=== PATIENT | male | born 1960 | race Caucasian/White ===

== ENCOUNTER 2018-09-14 13:16 | Emergency (ER) | payer OTHER ==
[2018-09-14 13:40] VITALS: RESP 18
--- NOTE | 2018-09-14 14:51 | ED ---
Abdominal Pain HPI - General Chief Complaint: Abdominal Pain Stated Complaint: Rib injury/constipation Time Seen by Provider: 09/14/18 14:24 Source: patient, RN notes reviewed, old records reviewed Mode of arrival: ambulatory Limitations: no limitations - History of Present Illness Initial Comments: This is a 4-year-old male the ER status post fall. Fall with abdominal pain and rib pain. Patient thinks he may have broken a rib, fall was 2 days ago. Patient with persistent abdominal pain currently. Patient has no significant medical history taking Motrin for pain currently. No significant shortness of breath may be just when he coughs or rotates his lower back. Pain is over right scapular area. Patient denies abdominal pain no blood in his urine no blood in the stool MD Complaint: flank pain (Right, Scapular) -: days(s) (2) Radiation: none Migration to: no migration Severity: moderate Severity scale (1-10): 5 Quality: stabbing, aching Consistency: constant Improves With: nothing Worsens With: movement Context: recent injury, other (fall) Associated Symptoms: denies other symptoms Treatments Prior to Arrival: NSAIDs - Related Data Home Medications Medication Instructions Recorded Confirmed Ibuprofen [Motrin Ib] 400 mg PO Q4H PRN 09/14/18 09/14/18 Allergies Allergy/AdvReac Type Severity Reaction Status Date / Time No Known Allergies Allergy Verified 09/14/18 14:37 Review of Systems ROS Statement: Those systems with pertinent positive or pertinent negative responses have been documented in the HPI. ROS Other: All systems not noted in ROS Statement are negative. Past Medical History Past Medical History: No Reported History History of Any Multi-Drug Resistant Organisms: None Reported Past Surgical History: Orthopedic Surgery Additional Past Surgical History / Comment(s): right knee surgery Past Psychological History: No Psychological Hx Reported Smoking Status: Current every day smoker Past Alcohol Use History: Occasional Past Drug Use History: None Reported General Exam Limitations: no limitations General appearance: alert, in no apparent distress Head exam: Present: atraumatic, normocephalic, normal inspection Eye exam: Present: normal appearance, PERRL, EOMI. Absent: scleral icterus, conjunctival injection, periorbital swelling ENT exam: Present: normal exam, mucous membranes moist Neck exam: Present: normal inspection. Absent: tenderness, meningismus, lymphadenopathy Respiratory exam: Present: normal lung sounds bilaterally. Absent: respiratory distress, wheezes, rales, rhonchi, stridor Cardiovascular Exam: Present: regular rate, normal rhythm, normal heart sounds. Absent: systolic murmur, diastolic murmur, rubs, gallop, clicks GI/Abdominal exam: Present: soft, normal bowel sounds. Absent: distended, tenderness, guarding, rebound, rigid Extremities exam: Present: normal inspection, full ROM, normal capillary refill. Absent: tenderness, pedal edema, joint swelling, calf tenderness Back exam: Present: normal inspection Neurological exam: Present: alert, oriented X3, CN II-XII intact Psychiatric exam: Present: normal affect, normal mood Skin exam: Present: warm, dry, intact, normal color. Absent: rash Course Vital Signs 09/14/18 13:37 Temperature 98.4 F Pulse Rate 87 Respiratory 18 Rate Blood Pressure 189/86 O2 Sat by Pulse 97 Oximetry - Reevaluation(s) Reevaluation #1: 09/14/18 15:34 Medical records thoroughly reviewed Reevaluation #2: 09/14/18 15:34 Patient has adequate pain control with no significant shortness of breath Medical Decision Making - Medical Decision Making 58 male the ER for evaluation of right-sided rib pain, right scapular pain secondary to fall. X-rays positive for right rib fracture. Patient will continue Motrin home for pain - Radiology Data Radiology results: report reviewed (X-ray abdominal series chest and rib series is positive for right ninth rib fracture), image reviewed Disposition Clinical Impression: Fall, Contusion of rib on right side, Right rib fracture Disposition: HOME SELF-CARE Condition: Good Instructions: Rib Fracture (ED) Is patient prescribed a controlled substance at d/c from ED?: No Referrals: Saurav Santillan DO [Primary Care Provider] - 1-2 days
--- NOTE | 2018-09-14 15:40 | XR ---
EXAMINATION TYPE: XR ribs RT DATE OF EXAM: 09/14/2018 COMPARISON: NONE HISTORY: Pain TECHNIQUE: 2 views submitted FINDINGS: There is a mildly displaced fracture involving the posterior anterolateral right ninth rib. Subsegmental consolidation at the right lung base. IMPRESSION: Acute fracture posterior lateral right ninth rib.
--- NOTE | 2018-09-14 15:42 | XR ---
EXAMINATION TYPE: XR abdomen acute w cxr DATE OF EXAM: 09/14/2018 COMPARISON: NONE HISTORY: Pain TECHNIQUE: Supine, upright, and left side down lateral decubitus views of the abdomen are obtained. FINDINGS: There is a fracture involving the posterior lateral right ninth rib. There is an irregular 1 cm nodule involving the lateral margin of the right lung base. No pneumothorax. Left lung is clear. There is prominence of the aortic arch suggestive of aneurysm. Arthropathy of the shoulders. Hypertrophic change of the spine. Bowel gas pattern nonspecific. Retained fecal debris throughout the colon. IMPRESSION: 1.Nondisplaced fracture posterior lateral right ninth rib. 2. Irregular 1 cm lower lobe pulmonary nodule recommend CT of the chest. 3. Probable ascending aortic aneurysm which could also be correlated with CT scan. 4. Nonspecific abdomen. 5. Subsegmental basilar atelectasis or infiltrate on the right.
[2018-09-14 15:58] VITALS: BP 156/99; PULSE 69; TEMP 98.1
== END 2018-09-14 15:58 | disposition home or self-care (01) ==
LOC: EC 13:16
DX: S22.31XA Fracture of one rib, right side, initial encounter for closed fracture (principal); R10.9 Unspecified abdominal pain; F17.200 Nicotine dependence, unspecified, uncomplicated; V86.59XA Driver of other special all-terrain or other off-road motor vehicle injured in nontraffic accident, initial encounter; Y93.I9 Activity, other involving external motion; Y92.410 Unspecified street and highway as the place of occurrence of the external cause
CPT/HCPCS: 74022; 99284

== ENCOUNTER 2020-04-17 16:25 | Emergency (ER) | payer OTHER ==
[2020-04-17] MEDS ORDERED: LABETALOL 5 MG/ML VIAL MDV IVP STA (16:47)
[2020-04-17 16:54] LABS: Basophils # (A) 0.1 k/uL (0-0.2); Basophils % (A) 1 %; Eosinophils # (A) 0.3 k/uL (0-0.7); Eosinophils % (A) 3 %; HCT 41.8 % (39.0-53.0); HGB 14.1 gm/dL (13.0-17.5); Lymphocytes # (A) 2.1 k/uL (1.0-4.8); Lymphocytes % (A) 24 %; MCH 34.6 pg (25.0-35.0); MCHC 33.7 g/dL (31.0-37.0); MCV 102.8 fL (80.0-100.0); Macrocytosis Slight; Mean Platelet Volume 7.1; Monocytes # (A) 0.4 k/uL (0-1.0); Monocytes % (A) 5 %; Neutrophils # (A) 5.7 k/uL (1.3-7.7); Neutrophils % (A) 66 %; Platelet Count 259 k/uL (150-450); RBC 4.07 m/uL (4.30-5.90); RDW 13.4 % (11.5-15.5); WBC 8.6 k/uL (3.8-10.6)
[2020-04-17 17:05] LABS: ALT 15 U/L (4-49); AST 27 U/L (17-59); African American GFR (CKD) >90 (>60 ml/min/1.73 sqM); Albumin 4.5 g/dL (3.5-5.0); Alkaline Phosphatase 69 U/L (38-126); Anion Gap 7 mmol/L; Blood Urea Nitrogen 17 mg/dL (9-20); Calcium 9.9 mg/dL (8.4-10.2); Carbon Dioxide 27 mmol/L (22-30); Chloride 104 mmol/L (98-107); Glucose 104 mg/dL (74-99); Non-African American GFR(CKD) >90 (>60 ml/min/1.73 sqM); Potassium 4.2 mmol/L (3.5-5.1); Sodium 138 mmol/L (137-145); Total Bilirubin 0.2 mg/dL (0.2-1.3); Total Protein 7.3 g/dL (6.3-8.2)
--- NOTE | 2020-04-17 17:06 | ED ---
General Adult HPI - General Chief complaint: Neuro Symptoms/Deficit Stated complaint: R sd Numbness Source: patient Mode of arrival: ambulatory Limitations: no limitations - History of Present Illness Initial comments: The patient is a 59-year-old male with no past medical history presents emergency department with reported paresthesias to his right face and right hand. He denies any weakness. Symptoms began at 2 PM this afternoon and only lasted for 10-15 seconds. Paresthesias involves the whole right side of his face as well as all of his fingers. No history of similar in the past. Denies any facial droop, difficulties with speech. No numbness or tingling in his leg. Symptoms continuously resolved. He did make mention to his possible go into the emergency room for evaluation. Patient denies any headaches. No previous history of strokes. No recent blunt head trauma. Eyes any fevers or chills. No headache or shortness of breath. Denies any neck pain. There are no other alleviating, precipitating or modifying factors - Related Data Previous Rx's Medication Instructions Recorded amLODIPine [Norvasc] 5 mg PO DAILY #15 tab 04/17/20 Allergies Allergy/AdvReac Type Severity Reaction Status Date / Time No Known Allergies Allergy Verified 04/17/20 18:17 Review of Systems ROS Statement: Those systems with pertinent positive or pertinent negative responses have been documented in the HPI. ROS Other: All systems not noted in ROS Statement are negative. Past Medical History Past Medical History: No Reported History History of Any Multi-Drug Resistant Organisms: None Reported Past Surgical History: Orthopedic Surgery Additional Past Surgical History / Comment(s): right knee surgery, left eye cataract Past Psychological History: No Psychological Hx Reported Smoking Status: Current every day smoker Past Alcohol Use History: Occasional Past Drug Use History: None Reported General Exam Limitations: no limitations Course Vital Signs 04/17/20 04/17/20 04/17/20 16:31 17:01 17:30 Temperature 98.8 F Pulse Rate 83 77 Respiratory 18 18 Rate Blood Pressure 204/124 173/96 184/102 O2 Sat by Pulse 99 98 Oximetry 04/17/20 04/17/20 18:28 19:10 Temperature 98.9 F Pulse Rate 75 78 Respiratory 16 17 Rate Blood Pressure 177/100 181/77 O2 Sat by Pulse 96 98 Oximetry EKG Findings - EKG Comments: EKG Findings:: EKG demonstrates normal sinus rhythm with ventricular rate of 83. VA interval 172. QRS 76. QTC 415. No acute ST segment elevations or depressions concerning for ischemic changes Medical Decision Making - Medical Decision Making Upon arrival the patient is placed into room 1. A thorough history and physical exam was performed. NIH stroke scale is negative on the patient. Peripheral IV was established. Laboratory studies were conducted. CBC, CMP, coagulation studies and troponin are negative. Patient was sent over for a CT of his brain and a chest x-ray which are negative for any acute findings. There is mild diffuse age-related cerebral atrophy. I discussed results with the patient. He has had no reoccurrence of his symptoms. I discussed diagnosis, differential and treatment options. At this time patient will be discharged home. He should follow-up with his primary care doctor within 2-4 days for further evaluation. Return to the emergency department for any new or worsening symptoms. Patient was hypertensive in the emergency department upon arrival with a blood pressure of 204/124. He was given 10 mg of labetalol with improvement in blood pressures to 177/100. I discussed with patient that he should take his blood pressure measurements twice daily. I will start him on a dose of Norvasc. He is to follow-up with his primary care physician for further blood pressure monitoring and adjustment to this medication. The patient understood this. The patient was then discharged home in stable condition - Lab Data Result diagrams: 04/17/20 16:45 04/17/20 16:45 Lab Results 04/17/20 04/17/20 04/17/20 Range/Units 16:45 16:45 16:45 WBC 8.6 (3.8-10.6) k/uL RBC 4.07 L (4.30-5.90) m/uL Hgb 14.1 (13.0-17.5) gm/dL Hct 41.8 (39.0-53.0) % MCV 102.8 H (80.0-100.0) fL MCH 34.6 (25.0-35.0) pg MCHC 33.7 (31.0-37.0) g/dL RDW 13.4 (11.5-15.5) % Plt Count 259 (150-450) k/uL Neutrophils % 66 % Lymphocytes % 24 % Monocytes % 5 % Eosinophils % 3 % Basophils % 1 % Neutrophils # 5.7 (1.3-7.7) k/uL Lymphocytes # 2.1 (1.0-4.8) k/uL Monocytes # 0.4 (0-1.0) k/uL Eosinophils # 0.3 (0-0.7) k/uL Basophils # 0.1 (0-0.2) k/uL Macrocytosis Slight PT 10.1 (9.0-12.0) sec INR 1.0 (<1.2) APTT 26.1 (22.0-30.0) sec Sodium 138 (137-145) mmol/L Potassium 4.2 (3.5-5.1) mmol/L Chloride 104 (98-107) mmol/L Carbon Dioxide 27 (22-30) mmol/L Anion Gap 7 mmol/L BUN 17 (9-20) mg/dL Creatinine 0.70 (0.66-1.25) mg/dL Est GFR (CKD-EPI)AfAm >90 (>60 ml/min/1.73 sqM) Est GFR (CKD-EPI)NonAf >90 (>60 ml/min/1.73 sqM) Glucose 104 H (74-99) mg/dL Calcium 9.9 (8.4-10.2) mg/dL Total Bilirubin 0.2 (0.2-1.3) mg/dL AST 27 (17-59) U/L ALT 15 (4-49) U/L Alkaline Phosphatase 69 (38-126) U/L Troponin I (0.000-0.034) ng/mL Total Protein 7.3 (6.3-8.2) g/dL Albumin 4.5 (3.5-5.0) g/dL 04/17/20 Range/Units 16:45 WBC (3.8-10.6) k/uL RBC (4.30-5.90) m/uL Hgb (13.0-17.5) gm/dL Hct (39.0-53.0) % MCV (80.0-100.0) fL MCH (25.0-35.0) pg MCHC (31.0-37.0) g/dL RDW (11.5-15.5) % Plt Count (150-450) k/uL Neutrophils % % Lymphocytes % % Monocytes % % Eosinophils % % Basophils % % Neutrophils # (1.3-7.7) k/uL Lymphocytes # (1.0-4.8) k/uL Monocytes # (0-1.0) k/uL Eosinophils # (0-0.7) k/uL Basophils # (0-0.2) k/uL Macrocytosis PT (9.0-12.0) sec INR (<1.2) APTT (22.0-30.0) sec Sodium (137-145) mmol/L Potassium (3.5-5.1) mmol/L Chloride (98-107) mmol/L Carbon Dioxide (22-30) mmol/L Anion Gap mmol/L BUN (9-20) mg/dL Creatinine (0.66-1.25) mg/dL Est GFR (CKD-EPI)AfAm (>60 ml/min/1.73 sqM) Est GFR (CKD-EPI)NonAf (>60 ml/min/1.73 sqM) Glucose (74-99) mg/dL Calcium (8.4-10.2) mg/dL Total Bilirubin (0.2-1.3) mg/dL AST (17-59) U/L ALT (4-49) U/L Alkaline Phosphatase (38-126) U/L Troponin I <0.012 (0.000-0.034) ng/mL Total Protein (6.3-8.2) g/dL Albumin (3.5-5.0) g/dL Disposition Clinical Impression: Paresthesia of right arm Disposition: HOME SELF-CARE Condition: Stable Instructions (If sedation given, give patient instructions): Paresthesia (ED) Additional Instructions: Please follow-up with your primary care doctor in 2-4 days. Return to the emergency room for any new or worsening symptoms. Take your blood pressure daily Prescriptions: amLODIPine [Norvasc] 5 mg PO DAILY #15 tab Is patient prescribed a controlled substance at d/c from ED?: No Referrals: Saurav Santillan DO [Primary Care Provider] - 1-2 days Time of Disposition: 18:47
[2020-04-17 17:10] LABS: Partial Thromboplastin Time 26.1 sec (22.0-30.0); Prothrombin Time 10.1 sec (9.0-12.0)
--- NOTE | 2020-04-17 17:34 | XR ---
EXAMINATION TYPE: XR chest 2V DATE OF EXAM: 04/17/2020 COMPARISON: Chest x-ray September 14, 2018 HISTORY: Altered mental status and weakness. Right-sided numbness today. TECHNIQUE: Frontal and lateral views of the chest are obtained. FINDINGS: There is no new suspicious focal air space opacity, pleural effusion, or pneumothorax seen . The cardiac silhouette size remains stable and upper limits of normal. The osseous structures ar e intact. IMPRESSION: No acute cardiopulmonary process.
--- NOTE | 2020-04-17 17:36 | CT ---
EXAMINATION TYPE: CT brain wo con DATE OF EXAM: 04/17/2020 HISTORY: Right sided numbness today. CT DLP: 1135.4 mGycm. Automated Exposure Control for Dose Reduction was Utilized. TECHNIQUE: CT scan of the head is performed without contrast. COMPARISON: None. FINDINGS: There is no acute intracranial hemorrhage or midline shift identified. There is diffuse v entricular and sulcal prominence consistent with diffuse age-related cerebral atrophy. Carter-white mat ter differentiation fairly well maintained. Scleral calcification left globe. Paranasal sinuses alexis ssly clear. No suspicious opacification mastoid air cells. IMPRESSION: No acute intracranial hemorrhage or midline shift. There is mild diffuse age-related ce rebral atrophy noted.
[2020-04-17 19:17] VITALS: BP 181/77; PULSE 78; RESP 17; TEMP 98.9
== END 2020-04-17 19:10 | disposition home or self-care (01) ==
LOC: EC 16:25
DX: R20.2 Paresthesia of skin (principal); R20.0 Anesthesia of skin; G31.1 Senile degeneration of brain, not elsewhere classified; F17.200 Nicotine dependence, unspecified, uncomplicated
CPT/HCPCS: 36415; 70450; 71046; 80053; 84484; 85025; 85610; 85730; 93005; 96374; 99284

== ENCOUNTER → 2020-04-26 | Outpatient (CLI) | payer OTHER ==
--- NOTE | 2020-04-26 07:44 | US ---
EXAMINATION TYPE: US carotid duplex BILAT DATE OF EXAM: 04/26/2020 COMPARISON: NONE CLINICAL HISTORY: G45.9 TIA. Right sided numbness EXAM MEASUREMENTS: RIGHT: Peak Systolic Velocity (PSV) cm/sec ----- Right CCA: 78.2 ----- Right ICA: 133.4 ----- Right ECA: 97.4 ICA/CCA ratio: 1.7 RIGHT: End Diastole cm/sec ----- Right CCA: 25.8 ----- Right ICA: 51.0 ----- Right ECA: 27.6 LEFT: Peak Systolic Velocity (PSV) cm/sec ----- Left CCA: 80.8 ----- Left ICA: 113.5 ----- Left ECA: 87.5 ICA/CCA ratio: 1.4 LEFT: End Diastole cm/sec ----- Left CCA: 25.8 ----- Left ICA: 42.7 ----- Left ECA: 22.6 VERTEBRALS (direction of flow): Right Vertebral: Antegrade Left Vertebral: Antegrade Rhythm: Normal Bilateral intimal thickening, elevated velocity: right distal ICA, no significant stenosis as the int ernal carotid artery to common carotid artery ratio is within normal limits. IMPRESSION: Mild degree of grayscale atheromatous plaquing with no sonographically evident hemodynam ically significant stenosis within either visualized carotid arterial system. Criteria for Assigning % of Stenosis / Diameter reduction (Estimation based on the indirect measurements of the internal carotid artery velocities (ICA PSV). 1. Normal (no stenosis)=ICA PSV < 125 cm/s: ratio < 2.0: ICA EDV<40 cm/s. 2. Less than 50% stenosis=ICA PSV < 125 cm/s: ratio < 2.0: ICA EDV<40 cm/s. 3. 50 to 69% stenosis=ICA PSV of 125 to 230 cm/s: ration 2.0 ? 4.0: ICA EDV 40-100 cm/s. 4. Greater than 70% stenosis to near occlusion= ICA PSV > 230 cm/s: ratio > 4.0: ICA EDV > 100 cm/s. 5. Near occlusion= ICA PSV velocities may be low or undetectable: variable ratio and ICA EDV. 6. Total occlusion=unable to detect flow.
== END | disposition home or self-care (01) ==
LOC: RADUSWWP 06:42
PROVIDERS: ATTEND Family Medicine
DX: I70.90 Unspecified atherosclerosis (principal); G45.9 Transient cerebral ischemic attack, unspecified
CPT/HCPCS: 93880

== ENCOUNTER → 2022-01-31 | Outpatient (CLI) | payer SELFPAY ==
--- NOTE | 2022-01-31 10:15 | XR ---
EXAMINATION TYPE: XR chest 2V DATE OF EXAM: 01/31/2022 COMPARISON: 04/17/2020 HISTORY: Shortness of breath TECHNIQUE: Frontal and lateral views of the chest are obtained. FINDINGS: Scattered senescent parenchymal changes noted. Hyperinflation compatible with COPD. There is large area of opacity right upper lobe with associated volume loss. Right hilar mass is not excluded. Small pleural effusion noted. Several reticulonodular densities left mid and left upper juliocesar g zones. Heart size is stable. Mediastinal structures are stable and grossly unremarkable. No evidence for hilar prominence. Degenerative changes dorsal spine. IMPRESSION: 1. There is large area of opacity right upper lobe with associated volume loss. Right hilar mass is n ot excluded. Small pleural effusion noted. Recommend CT to exclude underlying neoplasm.
== END | disposition home or self-care (01) ==
LOC: RADXRMAIN 10:00
PROVIDERS: ATTEND Nurse Practitioner Family
DX: J90 Pleural effusion, not elsewhere classified (principal); R91.8 Other nonspecific abnormal finding of lung field
CPT/HCPCS: 71046

== ENCOUNTER 2022-02-14 10:57 | Inpatient (IN) | payer OTHER ==
[2022-02-14] MEDS ORDERED: KETOROLAC 15 MG/ML 1 ML VIAL IVP STA (11:28)
[2022-02-14] MEDS ORDERED: LORazepam 2 MG/ML INJ IV STA (11:28)
[2022-02-14] MEDS ORDERED: SODIUM CHLORIDE 0.9% 500 ML 500 ML IV STA (11:28)
--- NOTE | 2022-02-14 11:50 | ED ---
General Adult HPI - General Chief complaint: Shortness of Breath Stated complaint: YADIRA Time Seen by Provider: 02/14/22 11:00 Source: patient, RN notes reviewed, old records reviewed Mode of arrival: ambulatory Limitations: no limitations - History of Present Illness Initial comments: This is a 61-year-old male who presents emergency department from Dr. Yeboah's office. Patient was recently diagnosed with a lung mass on the right side with possible pleural effusion from a CAT scan. Dr. Yeboah on the patient needed to be brought into the hospital possibly have this pleural effusion drained and have oncology see him and order some biopsies extremity if this is indeed cancer and what type of cancer. Patient complains of some right-sided chest pain and also some shortness of breath per patient also states she's very anxious He just found out this news this morning. Patient denies any fever chills or cough per patient denies any abdominal pain patient denies nausea vomiting diarrhea. - Related Data Previous Rx's Medication Instructions Recorded amLODIPine [Norvasc] 5 mg PO DAILY #15 tab 04/17/20 Allergies Allergy/AdvReac Type Severity Reaction Status Date / Time No Known Allergies Allergy Verified 04/17/20 18:17 Review of Systems ROS Statement: Those systems with pertinent positive or pertinent negative responses have been documented in the HPI. ROS Other: All systems not noted in ROS Statement are negative. Past Medical History Past Medical History: No Reported History History of Any Multi-Drug Resistant Organisms: None Reported Past Surgical History: Orthopedic Surgery Additional Past Surgical History / Comment(s): right knee surgery, left eye cataract Past Psychological History: No Psychological Hx Reported Smoking Status: Former smoker Past Alcohol Use History: Occasional Past Drug Use History: None Reported General Exam - General Exam Comments Initial Comments: GENERAL: Patient is well-developed and well-nourished. Patient is nontoxic and well- hydrated and is in mild distress. ENT: Neck is soft and supple. No significant lymphadenopathy is noted. Oropharynx is clear. Moist mucous membranes. Neck has full range of motion without eliciting any pain. EYES: The sclera were anicteric and conjunctiva were pink and moist. Extraocular movements were intact and pupils were equal round and reactive to light. Eyelids were unremarkable. PULMONARY: Patient is significantly reduced breath sounds on the right. CARDIOVASCULAR: There is a regular rate and rhythm without any murmurs gallops or rubs. ABDOMEN: Soft and nontender with normal bowel sounds. SKIN: Skin is clear with no lesions or rashes and otherwise unremarkable. NEUROLOGIC: Patient is alert and oriented x3. Cranial nerves II through XII are grossly intact. Motor and sensory are also intact. Normal speech, volume and content. Symmetrical smile. MUSCULOSKELETAL: Normal extremities with adequate strength and full range of motion. No lower extremity swelling or edema. No calf tenderness. LYMPHATICS: No significant lymphadenopathy is noted PSYCHIATRIC: Patient is mildly anxious Limitations: no limitations Course Vital Signs 02/14/22 02/14/22 11:04 12:07 Temperature 98.4 F Pulse Rate 108 H Respiratory 24 Rate Blood Pressure 143/92 O2 Sat by Pulse 93 L 90 L Oximetry Medical Decision Making - Medical Decision Making EKG shows sinus tachycardia at 108 bpm AL interval 170 QRS is 76 QT interval 312 QTC is 375. Patient's EKG shows no ST segment elevation or depression. Chest x-ray shows a mass in the right hilar and right upper lobe patient also has an increasing pleural effusion. And there is some patchy infiltrate in the left mid lung. After seeing the x-ray I ordered the patient 2 g of Rocephin at 2 PM. I also ordered a COVID test. Dr. Odonnell was consulted he saw the patient in the emergency department and wants to do a bronchoscopy later today. I spoke with [facility] agreed to admit the patient I admitted the patient I wrote admitting orders. I consulted Dr. Odonnell I also consulted oncology. - Lab Data Result diagrams: 02/14/22 11:44 02/14/22 11:44 Lab Results 02/14/22 02/14/22 02/14/22 Range/Units 11:44 11:44 11:44 WBC 17.9 H (3.8-10.6) k/uL RBC 4.56 (4.30-5.90) m/uL Hgb 14.1 (13.0-17.5) gm/dL Hct 43.0 (39.0-53.0) % MCV 94.2 (80.0-100.0) fL MCH 30.9 (25.0-35.0) pg MCHC 32.8 (31.0-37.0) g/dL RDW 15.2 (11.5-15.5) % Plt Count 478 H (150-450) k/uL MPV 7.3 Neutrophils % 85 % Lymphocytes % 7 % Monocytes % 7 % Eosinophils % 0 % Basophils % 0 % Neutrophils # 15.1 H (1.3-7.7) k/uL Lymphocytes # 1.3 (1.0-4.8) k/uL Monocytes # 1.3 H (0-1.0) k/uL Eosinophils # 0.0 (0-0.7) k/uL Basophils # 0.1 (0-0.2) k/uL Manual Slide Review Performed RBC Morphology Normal PT 11.7 (9.0-12.0) sec INR 1.1 (<1.2) APTT 27.4 (22.0-30.0) sec Sodium 132 L (137-145) mmol/L Potassium 3.8 (3.5-5.1) mmol/L Chloride 93 L (98-107) mmol/L Carbon Dioxide 29 (22-30) mmol/L Anion Gap 10 mmol/L BUN 24 H (9-20) mg/dL Creatinine 0.62 L (0.66-1.25) mg/dL Est GFR (CKD-EPI)AfAm >90 (>60 ml/min/1.73 sqM) Est GFR (CKD-EPI)NonAf >90 (>60 ml/min/1.73 sqM) Glucose 112 H (74-99) mg/dL Calcium 9.3 (8.4-10.2) mg/dL Magnesium 2.1 (1.6-2.3) mg/dL Total Bilirubin 0.8 (0.2-1.3) mg/dL AST 37 (17-59) U/L ALT 20 (4-49) U/L Alkaline Phosphatase 142 H (38-126) U/L Troponin I (0.000-0.034) ng/mL NT-Pro-B Natriuret Pep pg/mL Total Protein 7.0 (6.3-8.2) g/dL Albumin 3.6 (3.5-5.0) g/dL 02/14/22 02/14/22 Range/Units 11:44 11:44 WBC (3.8-10.6) k/uL RBC (4.30-5.90) m/uL Hgb (13.0-17.5) gm/dL Hct (39.0-53.0) % MCV (80.0-100.0) fL MCH (25.0-35.0) pg MCHC (31.0-37.0) g/dL RDW (11.5-15.5) % Plt Count (150-450) k/uL MPV Neutrophils % % Lymphocytes % % Monocytes % % Eosinophils % % Basophils % % Neutrophils # (1.3-7.7) k/uL Lymphocytes # (1.0-4.8) k/uL Monocytes # (0-1.0) k/uL Eosinophils # (0-0.7) k/uL Basophils # (0-0.2) k/uL Manual Slide Review RBC Morphology PT (9.0-12.0) sec INR (<1.2) APTT (22.0-30.0) sec Sodium (137-145) mmol/L Potassium (3.5-5.1) mmol/L Chloride (98-107) mmol/L Carbon Dioxide (22-30) mmol/L Anion Gap mmol/L BUN (9-20) mg/dL Creatinine (0.66-1.25) mg/dL Est GFR (CKD-EPI)AfAm (>60 ml/min/1.73 sqM) Est GFR (CKD-EPI)NonAf (>60 ml/min/1.73 sqM) Glucose (74-99) mg/dL Calcium (8.4-10.2) mg/dL Magnesium (1.6-2.3) mg/dL Total Bilirubin (0.2-1.3) mg/dL AST (17-59) U/L ALT (4-49) U/L Alkaline Phosphatase (38-126) U/L Troponin I 0.074 H* (0.000-0.034) ng/mL NT-Pro-B Natriuret Pep 802 pg/mL Total Protein (6.3-8.2) g/dL Albumin (3.5-5.0) g/dL Disposition Clinical Impression: Lung mass, Pneumonia, Dyspnea Disposition: ADMITTED IP TO THIS [facility] Is patient prescribed a controlled substance at d/c from ED?: No Referrals: Saurav Santillan DO [Primary Care Provider] - 1-2 days Time of Disposition: 14:02
[2022-02-14 12:36] LABS: Basophils # (A) 0.1 k/uL (0-0.2); Basophils % (A) 0 %; Eosinophils % (A) 0 %; HGB 14.1 gm/dL (13.0-17.5); Lymphocytes # (A) 1.3 k/uL (1.0-4.8); Lymphocytes % (A) 7 %; MCH 30.9 pg (25.0-35.0); MCHC 32.8 g/dL (31.0-37.0); MCV 94.2 fL (80.0-100.0); Mean Platelet Volume 7.3; Monocytes # (A) 1.3 k/uL (0-1.0); Monocytes % (A) 7 %; Neutrophils # (A) 15.1 k/uL (1.3-7.7); Neutrophils % (A) 85 %; Platelet Count 478 k/uL (150-450); RBC 4.56 m/uL (4.30-5.90); RDW 15.2 % (11.5-15.5); WBC 17.9 k/uL (3.8-10.6)
[2022-02-14 12:41] LABS: ALT 20 U/L (4-49); AST 37 U/L (17-59); African American GFR (CKD) >90 (>60 ml/min/1.73 sqM); Albumin 3.6 g/dL (3.5-5.0); Alkaline Phosphatase 142 U/L (38-126); Anion Gap 10 mmol/L; Blood Urea Nitrogen 24 mg/dL (9-20); Calcium 9.3 mg/dL (8.4-10.2); Carbon Dioxide 29 mmol/L (22-30); Chloride 93 mmol/L (98-107); Glucose 112 mg/dL (74-99); Magnesium 2.1 mg/dL (1.6-2.3); Non-African American GFR(CKD) >90 (>60 ml/min/1.73 sqM); Potassium 3.8 mmol/L (3.5-5.1); Sodium 132 mmol/L (137-145); Total Bilirubin 0.8 mg/dL (0.2-1.3)
--- NOTE | 2022-02-14 12:41 | XR ---
EXAMINATION TYPE: XR chest 2V DATE OF EXAM: 02/14/2022 COMPARISON: 01/31/2022 HISTORY: 61-year-old male with chest pain and shortness of breath TECHNIQUE: AP and lateral views FINDINGS: Right heart margin obscured by adjacent pleural parenchymal opacity. There is increased, now moderate pleural effusion on the right. Patchy densities left mid and upper lung. Redemonstrated is extensive opacity right hilum and right upper lobe. Trace effusion on the left as well. IMPRESSION: 1. Worsening now moderate right pleural effusion with adjacent atelectasis and/or consolidation. 2. Probable extensive right hilar and right upper lobe mass as seen on the patient's outside [address] 3. Increasing patchy infiltrate left midlung. Pneumonia not excluded.
[2022-02-14 13:01] LABS: INR 1.1 (<1.2)
[2022-02-14 13:02] LABS: Partial Thromboplastin Time 27.4 sec (22.0-30.0); Prothrombin Time 11.7 sec (9.0-12.0)
[2022-02-14 13:38] LABS: RBC Morphology Normal
[2022-02-14] MEDS ORDERED: cefTRIAXone IN SWFI 1,000 MG/10 ML SYRINGE IVP STA (13:59)
[2022-02-14] MEDS ORDERED: SODIUM CHLORIDE 0.9% 1,000 ML IV ONE (14:06)
--- NOTE | 2022-02-14 15:04 | P.CNPUL ---
History of Present Illness Consult date: 02/14/22 Reason for consult: lung mass History of present illness: 61-year-old male patient was sent over from our office for a large right lung mass. The patient isn't doing poorly. He has been getting progressively more short of breath, he has lost around 30 pounds, the patient is also had diminished appetite, and nonspecific aches and pains throughout his chest for the past 4 months. Chest x-ray was done on outpatient basis and the patient was found to have a large right upper lobe mass. Following that, the patient was sent to [facility] for a CAT scan of the chest that was done on 02/08/2022. The patient was found to have a heterogeneous enhancing mass and associated with lobar collapse involving the entirety of the right upper lobe measuring 7.8 x 6.7 cm in size and some postobstructive changes in the right upper lobe. There was also the bronchial involvement in the right mainstem bronchus. There were parenchymal opacities within the superior segment of the right lower lobe posteriorly measuring 4.8 x 2.2 cm in size, left lower lobe measuring 1.9 x 1.7 cm in size and 1.9 x 1.2 cm in size And a small right-sided pleural effusion as well as a small left-sided pleural effusion there was also evidence of a large bilateral supraclavicular lymph node measuring up to 1.1 cm in size. There was a large subcarinal lymph node measuring 1.5 cm in size. There was a right perihilar soft tissue attenuation difficult differentiate between adenopathy and a mass. Mildly large and father also seen in the para- aortic, AP window and left hilar areas. The patient does not use any pulmonary medications or inhalers did not have any hemoptysis. He is a chronic smoker quit smoking approximately 4 months ago. His been fully vaccinated for COVID 19. 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 This patient is quite cachectic. He is having some limited shortness of breath even at rest. A repeat chest x-ray was done today and shows a right upper lobe opacity and a enlarging right-sided pleural effusion. The patient is currently on room air oxygen. No changes voice. No hemoptysis. No altered mentation. No focal neurological deficit. He had a small piece of toast and drink at around 6:00 this morning. Discussed the case with anesthesia. Should be able to bronchoscope this patient for tissue diagnosis by afternoon. Review of Systems Constitutional: Reports fatigue, Reports weakness, Reports weight loss Eyes: denies as per HPI, denies blurred vision, denies bulging eye, denies decreased vision, denies diplopia, denies discharge, denies dry eye, denies irritation, denies itching, denies pain, denies photophobia, denies loss of peripheral vision, denies loss of vision, denies tunnel vision/blind spots Ears: deny: decreased hearing, ear discharge, earache, tinnitus Ears, nose, mouth and throat: Reports as per HPI Breasts: absent: as per HPI, gynecomastia Cardiovascular: Reports decreased exercise tolerance, Reports dyspnea on exertion Respiratory: Reports cough, Reports dyspnea Gastrointestinal: Reports as per HPI Genitourinary: Reports as per HPI Musculoskeletal: Reports as per HPI Musculoskeletal: absent: ankle pain, ankle stiffness, ankle swelling Integumentary: Reports as per HPI Neurological: Reports as per HPI, Reports weakness Psychiatric: Reports as per HPI Endocrine: Reports as per HPI Hematologic/Lymphatic: Reports as per HPI Allergic/Immunologic: Reports as per HPI Past Medical History Past Medical History: No Reported History Additional Past Medical History / Comment(s): Lung mass History of Any Multi-Drug Resistant Organisms: None Reported Past Surgical History: Orthopedic Surgery Additional Past Surgical History / Comment(s): right knee surgery, left eye cataract Past Psychological History: No Psychological Hx Reported Smoking Status: Former smoker Past Alcohol Use History: Occasional Past Drug Use History: None Reported Medications and Allergies Home Medications Medication Instructions Recorded Confirmed Type amLODIPine [Norvasc] 5 mg PO DAILY #15 tab 04/17/20 Rx Allergies Allergy/AdvReac Type Severity Reaction Status Date / Time No Known Allergies Allergy Verified 04/17/20 18:17 Physical Exam Vitals: Vital Signs Temp Pulse Resp BP Pulse Ox 02/14/22 12:07 90 L 02/14/22 11:04 98.4 F 108 H 24 143/92 93 L Intake and Output 02/13/22 02/14/22 02/14/22 22:59 06:59 14:59 Other: Weight 49.895 kg The patient is a pink puffer and he is quite cachectic and emaciated. He is a mild degree of respiratory distress. On room air oxygen. He is awake and alert. Head exam was generally normal. There was no scleral icterus or corneal arcus. Mucous membranes were moist. Neck was supple and without jugular venous distension, thyromegaly, or carotid bruits. Carotids were easily palpable bilaterally. There was no adenopathy. Lungs are diminished on the right lung base compared to left. Scattered rhonchi and scattered external wheeze. Cardiac exam revealed the PMI to be normally situated and sized. The rhythm was regular and no extrasystoles were noted during several minutes of auscultation. The first and second heart sounds were normal and physiologic splitting of the second heart sound was noted. There were no murmurs, rubs, clicks, or gallops. Abdominal exam revealed normal bowel sounds. The abdomen was soft, non-tender, and without masses, organomegaly, or appreciable enlargement of the abdominal aorta. Examination of the extremities revealed easily palpable radial, femoral and ped al pulses. There was no cyanosis, clubbing or edema. Examination of the skin revealed no evidence of significant rashes, suspicious appearing nevi or other concerning lesions. Neurologically, the patient is awake and alert and the patient does not have any focal neurological deficit. Cranial nerves are essentially intact. Results - Laboratory Findings CBC and BMP: 02/14/22 11:44 02/14/22 11:44 PT/INR, D-dimer PT 11.7 sec (9.0-12.0) 02/14/22 11:44 INR 1.1 (<1.2) 02/14/22 11:44 Abnormal lab findings: Abnormal Labs 02/14/22 02/14/22 02/14/22 11:44 11:44 11:44 WBC 17.9 H Plt Count 478 H Neutrophils # 15.1 H Monocytes # 1.3 H Sodium 132 L Chloride 93 L BUN 24 H Creatinine 0.62 L Glucose 112 H Alkaline Phosphatase 142 H Troponin I 0.074 H* - Diagnostic Findings Chest x-ray: image reviewed Assessment and Plan Plan: 1 large right upper lobe mass measuring 7.9 x 6.7 cm in size. 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 Findings are highly suspicious for bronchogenic carcinoma. There is also endobronchial extension causing obstruction of the right mainstem bronchus. 2 shortness of breath secondary to above 3 COPD 4 right-sided pleural effusion, small Plan Keep the patient nothing by mouth We'll proceed with bronchoscopy and airway inspection and in the bottle biopsies of the right mainstem mass/right upper lobe mass This procedure will be done under general anesthesia. Risks of the procedure was spent with the patient at length High likelihood for malignancy Carries a very poor prognosis based on the above-mentioned comorbidities We'll need an oncology consultation
[2022-02-14] MEDS ORDERED: PROPOFOL 10 MG/ML 20 ML VIAL IV ONE (15:32)
[2022-02-14] MEDS ORDERED: MIDAZOLAM 2 MG/2 ML VIAL ONE (15:32)
[2022-02-14] MEDS ORDERED: KETAMINE 10 MG/ML 20 ML VIAL ONE (15:32)
[2022-02-14] MEDS ORDERED: PHENYLEPHRINE-0.9% NACL SYG 1,000 MCG/10 ML SYRINGE ONE (15:32)
[2022-02-14] MEDS ORDERED: LIDOCAINE 1% INJ 10MG/ML (20 ML MDV) ONE (15:32)
[2022-02-14] MEDS ORDERED: SUCCINYLCHOLINE CHLORIDE 100 MG/5 ML SYR IV ONE (15:32)
[2022-02-14] MEDS ORDERED: IV FLUID CONTINUATION 900 ML IV ONE (15:55)
--- NOTE | 2022-02-14 16:28 | P.HPIM ---
History of Present Illness Chief Complaint: Shortness of breath 61-year-old male who presents emergency department from Dr. Yeboah's office. Patient was recently diagnosed with a lung mass on the right side with possible pleural effusion from a CAT scan. Dr. Yeboah on the patient needed to be brought into the hospital possibly have this pleural effusion drained and have oncology see him and order some biopsies extremity if this is indeed cancer and what type of cancer. Patient complains of some right-sided chest pain and also some shortness of breath per patient also states she's very anxious He just found out this news this morning. Patient denies any fever chills or cough per patient denies any abdominal pain patient denies nausea vomiting diarrhea. Chest x-ray was done on outpatient basis and the patient was found to have a lar ge right upper lobe mass. Following that, the patient was sent to [facility] for a CAT scan of the chest that was done on 02/08/2022. The patient was found to have a heterogeneous enhancing mass and associated with lobar collapse involving the entirety of the right upper lobe measuring 7.8 x 6.7 cm in size and some postobstructive changes in the right upper lobe. There was also the bronchial involvement in the right mainstem bronchus. There were parenchymal opacities within the superior segment of the right lower lobe posteriorly measuring 4.8 x 2.2 cm in size, left lower lobe measuring 1.9 x 1.7 cm in size and 1.9 x 1.2 cm in size And a small right-sided pleural effusion as well as a small left-sided pleural effusion there was also evidence of a large bilateral supraclavicular lymph node measuring up to 1.1 cm in size. There was a large subcarinal lymph node measuring 1.5 cm in size. There was a right perihilar soft tissue attenuation difficult differentiate between adenopathy and a mass. Mildly large and father also seen in the para-aortic, AP window and left hilar areas. The patient does not use any pulmonary medications or inhalers did not have any hemoptysis. He is a chronic smoker quit smoking approximately 4 months ago. His been fully vaccinated for COVID 19. 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 This patient is quite cachectic. He is having some limited shortness of breath even at rest. A repeat chest x- ray was done today and shows a right upper lobe opacity and a enlarging right- sided pleural effusion. Review of Systems REVIEW OF SYSTEMS: CONSTITUTIONAL: No fever, no malaise, no fatigue. HEENT: No recent visual problems or hearing problems. Denied any sore throat. CARDIOVASCULAR: No chest pain, orthopnea, PND, no palpitations, no syncope. PULMONARY: No shortness of breath, no cough, no hemoptysis. GASTROINTESTINAL: No diarrhea, no nausea, no vomiting, no abdominal pain. NEUROLOGICAL: No headaches, no weakness, no numbness. HEMATOLOGICAL: Denies any bleeding or petechiae. GENITOURINARY: Denies any burning micturition, frequency, or urgency. MUSCULOSKELETAL/RHEUMATOLOGICAL: Denies any joint pain, swelling, or any muscle pain. ENDOCRINE: Denies any polyuria or polydipsia. The rest of the 14-point review of systems is negative. Past Medical History Past Medical History: No Reported History History of Any Multi-Drug Resistant Organisms: None Reported Past Surgical History: Orthopedic Surgery Additional Past Surgical History / Comment(s): right knee surgery, left eye cataract Past Psychological History: No Psychological Hx Reported Smoking Status: Former smoker Past Alcohol Use History: Occasional Past Drug Use History: None Reported Medications and Allergies Home Medications Medication Instructions Recorded Confirmed Type Albuterol Sulfate [Ventolin HFA] 1 - 2 puff INHALATION RT-Q4H PRN 02/14/22 02/14/22 History Aspirin EC [Ecotrin] 325 mg PO DAILY 02/14/22 02/14/22 History Atorvastatin [Lipitor] 40 mg PO HS 02/14/22 02/14/22 History Azithromycin [Zithromax Z-pack (6 See Taper PO DAILY 02/14/22 02/14/22 History tabs)] Montelukast [Singulair] 10 mg PO DAILY 02/14/22 02/14/22 History Promethazine/Dextromethorphan 5 ml PO Q4H PRN 02/14/22 02/14/22 History [Promethazine-Dm Syrup] amLODIPine [Norvasc] 10 mg PO DAILY 02/14/22 02/14/22 History hydroCHLOROthiazide [Hydrodiuril] 50 mg PO DAILY 02/14/22 02/14/22 History predniSONE See Taper PO DAILY 02/14/22 02/14/22 History Allergies Allergy/AdvReac Type Severity Reaction Status Date / Time No Known Allergies Allergy Verified 02/14/22 15:27 Physical Exam Vitals: Vital Signs Temp Pulse Resp BP Pulse Ox 02/14/22 12:07 90 L 02/14/22 11:04 98.4 F 108 H 24 143/92 93 L Intake and Output 02/13/22 02/14/22 02/14/22 22:59 06:59 14:59 Other: Weight 49.895 kg Head exam was generally normal. . Neck was supple and without jugular venous distension, thyromegaly, or carotid bruits. Carotids were easily palpable bilaterally. There was no adenopathy. Lungs are diminished on the right lung base compared to left. Scattered rhonchi and scattered external wheeze. Cardiac exam; rhythm was regular; heart sounds were normal and physiologic splitting of the second heart sound was noted. There were no murmurs, rubs, clicks, or gallops. Abdominal exam revealed normal bowel sounds. The abdomen was soft, non-tender, and without masses, organomegaly, or appreciable enlargement of the abdominal aorta. Extremities; palpable pulses. There was no cyanosis, clubbing or edema. Skin; no evidence of significant rashes, suspicious appearing nevi or other concerning lesions. Neurologically, the patient is awake and alert and the patient does not have any focal neurological deficit. Cranial nerves intact. Results CBC & Chem 7: 02/14/22 11:44 02/14/22 11:44 Labs: Abnormal Lab Results - Last 24 Hours (Table) 02/14/22 02/14/22 02/14/22 Range/Units 11:44 11:44 11:44 WBC 17.9 H (3.8-10.6) k/uL Plt Count 478 H (150-450) k/uL Neutrophils # 15.1 H (1.3-7.7) k/uL Monocytes # 1.3 H (0-1.0) k/uL Sodium 132 L (137-145) mmol/L Chloride 93 L (98-107) mmol/L BUN 24 H (9-20) mg/dL Creatinine 0.62 L (0.66-1.25) mg/dL Glucose 112 H (74-99) mg/dL Alkaline Phosphatase 142 H (38-126) U/L Troponin I 0.074 H* (0.000-0.034) ng/mL Assessment and Plan Assessment: 1. Dyspnea/hypoxemia/large right upper lobe mass/ highly suspicious for bronchogenic carcinoma - Evaluation reveals large mass causing collapse of the entire right upper lobe along with other possibilities in right and left lower lobe; mediastinotomy lymphadenopathies present along with ill-defined lesion at level of T2 and L3 vertebral body likely metastatic disease; it is endobronchial extension causing obstruction of right mainstem bronchus - Patient has been evaluated by pulmonary and recommending patient to be nothing by mouth with plans to proceed with bronchoscopy along with biopsies of right upper lobe mass - Patient received IV Rocephin in ED for possible postobstructive pneumonia - Oncology is consulted and recommendations are pending 2. Right-sided pleural effusion; small; likely not contributing to his symptom complex; no indication for thoracentesis at this time 3. COPD; not in exacerbation; continue with bronchodilator nebulizer treatment 3 times a day and when necessary; Singulair 10 mg daily 4. Hyperlipidemia; Lipitor 40 mg by mouth daily at bedtime 5. Hypertension; hydro-Diuril 50 mg daily along with amlodipine 10 mg daily DVT prophylaxis; SCDs only CODE STATUS; full code
[2022-02-14] MEDS: IPRATROPIUM-ALBUTEROL 3 ML NEB INHALATION SCH (19:24)
[2022-02-14] MEDS: ATORVASTATIN 40 MG TAB PO SCH (20:08)
[2022-02-14] MEDS: ALPRAZolam 0.25 MG TAB PO PRN (21:21)
[2022-02-14] MEDS: guaiFENesin SYRUP 100MG/5ML 200 MG/10 ML CUP PO PRN (21:21)
[2022-02-15] MEDS: BENZONATATE 100 MG CAP PO SCH ×4 (01:43→20:18)
[2022-02-15 01:45] LABS: Appearance,BF Blood Tinged
[2022-02-15] MEDS: IPRATROPIUM-ALBUTEROL 3 ML NEB INHALATION SCH ×3 (08:25→19:30)
[2022-02-15] MEDS: MONTELUKAST 10 MG TAB PO SCH (09:00)
[2022-02-15] MEDS: amLODIPine 10 MG TAB PO SCH (09:00)
[2022-02-15] MEDS: ALPRAZolam 0.25 MG TAB PO PRN ×3 (09:03→20:18)
[2022-02-15] MEDS: guaiFENesin SYRUP 100MG/5ML 200 MG/10 ML CUP PO PRN (11:06)
--- NOTE | 2022-02-15 11:26 | US ---
EXAMINATION TYPE: US chest DATE OF EXAM: 02/15/2022 COMPARISON: NONE CLINICAL HISTORY: Markings for thoracentesis by pulmonary staff. Right plueral effusion. TECHNIQUE: Targeted ultrasound of the posterior lower right hemithorax EXAM MEASUREMENTS: Right Pleural Effusion pocket size: 14.6 cm Right skin surface to fluid distance: 1.1 cm Right side marked for possible thoracentesis outside the dept. Pulmonologists are able to review the images in the patient?s EMR. Moderate to large size asymmetric right pleural fluid collection confirmed on images obtained. IMPRESSIONS: As above.
[2022-02-15 13:02] LABS: Basophils % (A) 0 %; Eosinophils % (A) 0 %; HGB 13.7 gm/dL (13.0-17.5); Lymphocytes # (A) 1.2 k/uL (1.0-4.8); Lymphocytes % (A) 6 %; MCH 30.2 pg (25.0-35.0); MCHC 31.1 g/dL (31.0-37.0); MCV 97.2 fL (80.0-100.0); Monocytes # (A) 0.9 k/uL (0-1.0); Monocytes % (A) 5 %; Neutrophils # (A) 16.3 k/uL (1.3-7.7); Neutrophils % (A) 88 %; Platelet Count 419 k/uL (150-450); RBC 4.53 m/uL (4.30-5.90); WBC 18.5 k/uL (3.8-10.6)
[2022-02-15 13:20] LABS: African American GFR (CKD) >90 (>60 ml/min/1.73 sqM); Anion Gap 9 mmol/L; Blood Urea Nitrogen 18 mg/dL (9-20); Calcium 8.9 mg/dL (8.4-10.2); Carbon Dioxide 29 mmol/L (22-30); Chloride 95 mmol/L (98-107); Glucose 109 mg/dL (74-99); Non-African American GFR(CKD) >90 (>60 ml/min/1.73 sqM); Potassium 3.4 mmol/L (3.5-5.1); Sodium 133 mmol/L (137-145)
--- NOTE | 2022-02-15 13:20 | P.PCN ---
Date of Procedure: 02/14/22 Preoperative Diagnosis: Right upper lobe consolidating mass Postoperative Diagnosis: Complete obstruction of the right upper lobe along with some mass effect at the level of the right mainstem bronchus Procedure(s) Performed: Bronchoscopy, transbronchial biopsies, as well as brushing, bronchial lavage of the right upper lobe Anesthesia: MARBIN Surgeon: Fawad Odonnell Estimated Blood Loss (ml): 0 Pathology: other Condition: stable Disposition: floor Operative Findings: This procedure was done in the endoscopy suite. The patient was already given a full expansion of the procedure. The timeout was done. A consent was signed. Following that, the patient was intubated and placed on a mechanical ventilator in the usual fashion by anesthesia. The patient was intubated by #8 orotracheal tube. Following that, an adapter was attached to the endo COPD and a bronchoscopy was initiated The flexible bronchoscope was introduced to the lower trachea. The distal trachea was within normal limits. Right mainstem bronchus was extrinsically compressed especially since distal and specially adopting of the right upper lobe bronchus. The right upper lobe bronchus was also narrowed mainly due to extrinsic compression. No evidence of any endobronchial tumor at the level of the antonella or the right mainstem bronchus. Bronchoscope was then moved to the right upper lobe that was significantly narrowed. There are 3 different orifices of the right upper lobe segments were seen. The anterior and apical posterior segments were seen. Nevertheless, I was unable to advance the bronchoscope into these orifices as the segments were extensively narrowed and there was probably some endobronchial involvement at those levels. Based on that, I introduced a forceps and I tried to probe his segments and advanced a forceps and the various segments. I was unsuccessful as there was a mass effect or complete obstruction where I was unable to advance the tip of the forceps beyond the segmental orifices. Most of the biopsies that were obtained with the level of the origin of the different segments of the right upper lobe and at the antonella a different segments. There was obvious endobronchial irregularities r that were biopsied under direct visualization. Following that, I performed and the bronchial brushings of the right upper lobe and the bronchioloalveolar lavage of the right upper lobe was done with a total of 80 mL of fluid was infused in 25-30 mL of aspirate was obtained. Aspirate was nonbloody. The airway inspection was completed. Some irregularities in the distal bronchus intermedius was also seen involving the lateral wall. The right middle lobe bronchus and the various segments of the right lower lobe were patent within normal limits. Examination of the left ankle in the left mainstem bronchus, left upper lobe and left lower bronchus and the various segments on the left and they were all within normal limits. The procedure was completed. Bronchoscope was removed. The patient was extubated and the patient was transferred to recovery in stable condition. We will be awaiting the results of the biopsy. If nondiagnostic, the patient may need either an endobronchial ultrasound or a percutaneous fine-needle aspirate to address this right upper lobe mass in the transthoracic approach. We'll continue to follow.
--- NOTE | 2022-02-15 13:22 | P.PN ---
Subjective Progress Note Date: 02/15/22 02/15/2022, the patient is being seen for a follow-up. Still struggling with his breathing and shortness of breath and he is having frequent coughing. No hemoptysis. He is on DuoNeb nebulized treatments around the clock. Bronchoscopy was done yesterday and results are still pending for now. The patient has no other specific complaint is otherwise. I noted development of a right-sided pleural effusion. We'll obtain ultrasound markings for possible thoracentesis in the future. He is cachectic. He is weak. Appetite is poor. Outpatient medications have been all resumed. Objective - Vital Signs Vital signs: Vital Signs Temp 97.8 F 02/15/22 11:57 Pulse 88 02/15/22 12:11 Resp 18 02/15/22 11:57 BP 164/84 02/15/22 11:57 Pulse Ox 93 L 02/15/22 11:57 Intake & Output 02/14/22 02/15/22 02/15/22 18:59 06:59 18:59 Intake Total 600 Output Total 300 Balance 600 -300 Weight 49.895 kg 50.2 kg Intake: IV 600 Oral 0 Output: Urine 300 Other: # Voids 1 1 - Exam The patient is a pink puffer and he is quite cachectic and emaciated. He is a mild degree of respiratory distress. On room air oxygen. He is awake and alert. Head exam was generally normal. There was no scleral icterus or corneal arcus. Mucous membranes were moist. Neck was supple and without jugular venous distension, thyromegaly, or carotid bruits. Carotids were easily palpable bilaterally. There was no adenopathy. Lungs are diminished on the right lung base compared to left. Scattered rhonchi and scattered external wheeze. Cardiac exam revealed the PMI to be normally situated and sized. The rhythm was regular and no extrasystoles were noted during several minutes of auscultation. The first and second heart sounds were normal and physiologic splitting of the second heart sound was noted. There were no murmurs, rubs, clicks, or gallops. Abdominal exam revealed normal bowel sounds. The abdomen was soft, non-tender, and without masses, organomegaly, or appreciable enlargement of the abdominal aorta. Examination of the extremities revealed easily palpable radial, femoral and pedal pulses. There was no cyanosis, clubbing or edema. Examination of the skin revealed no evidence of significant rashes, suspicious appearing nevi or other concerning lesions. Neurologically, the patient is awake and alert and the patient does not have any focal neurological deficit. Cranial nerves are essentially intact. - Labs CBC & Chem 7: 02/15/22 12:32 02/14/22 11:44 Labs: Abnormal Lab Results - Last 24 Hours (Table) 02/14/22 02/15/22 Range/Units 11:44 12:32 WBC 18.5 H (3.8-10.6) k/uL Neutrophils # 15.1 H 16.3 H (1.3-7.7) k/uL Monocytes # 1.3 H (0-1.0) k/uL Microbiology - Last 24 Hours (Table) 02/14/22 16:00 Gram Stain - Preliminary Bronchoalviolar Lavage - Right Bronchial Washings Culture - Preliminary 02/14/22 16:00 Acid Fast Bacilli Culture - Preliminary Bronchoalviolar Lavage - Right 02/14/22 16:00 Fungal Culture - Preliminary Bronchoalviolar Lavage - Right Assessment and Plan Plan: 1 large right upper lobe mass measuring 7.9 x 6.7 cm in size. 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 Findings are highly suspicious for bronchogenic carcinoma. There is also endobronchial extension causing obstruction of the right mainstem bronchus. 2 shortness of breath secondary to above 3 COPD 4 right-sided pleural effusion, small Plan The patient is post bronchoscopy, awaiting final results Abdomen is also nondiagnostic, a transthoracic needle aspirate of the right upper lobe mass may be helpful. Will obtain also marking of the right-sided pleural effusion for possible thoracentesis Carries a very poor prognosis based on the above-mentioned comorbidities We'll need an oncology consultation
[2022-02-15] MEDS: guaiFENesin-Coden 100-10MG/5ML 10 ML CUP PO PRN ×2 (17:02→23:27)
[2022-02-15] MEDS: ATORVASTATIN 40 MG TAB PO SCH (20:18)
--- NOTE | 2022-02-16 00:36 | P.CONS ---
History of Present Illness - Reason for Consult Consult date: 02/15/22 Right Lung mass - History of Present Illness The pt is a 61 yr old WM, presenting with SOB initially starting about 4 mths ago, with more marked worsening over the past 2 mths. He had a CXR done by pulmonary revealing a large RUL mass. HE had a CT at [facility], showing a large 7.8 cm RUL mass, opacities in the upper RLL, largest 4.8 cm, b/l small pleural effusions, R > L. He also had paratracheal and mediastinal adenopathy ( including sub carinal). He was sent in more management of his worsening respirations, and to obtain a tissue diagnosis He denied any prior h/o malignancy. He smoked 1 PPD x 40 yrs, and quit about 4 mths ago. He has lost 30 lbs since the onset of symptoms. Bronchoscopy showed complete obstruction of the RUL bronchus and some mass effect on the rt mainstem. Pathology and biopsies are pending US showed a small pocket of fluid on the right 1.5 -2 range Review of Systems Constitutional: Reports fatigue, Reports poor appetite, Reports weakness, Reports weight loss Eyes: denies blurred vision, denies pain Ears: deny: decreased hearing, tinnitus Ears, nose, mouth and throat: Denies headache, Denies sore throat Cardiovascular: Reports orthopnea, Reports shortness of breath Respiratory: Reports cough with sputum, Reports dyspnea Gastrointestinal: Denies abdominal pain, Denies diarrhea, Denies nausea, Denies vomiting Genitourinary: Reports as per HPI Musculoskeletal: Reports muscle weakness Integumentary: Denies pruritus, Denies rash Neurological: Reports weakness Psychiatric: Reports anxiety Endocrine: Reports fatigue, Reports weight change Hematologic/Lymphatic: Reports as per HPI Past Medical History Past Medical History: No Reported History Additional Past Medical History / Comment(s): Lung mass History of Any Multi-Drug Resistant Organisms: None Reported Past Surgical History: Orthopedic Surgery Additional Past Surgical History / Comment(s): right knee surgery, left eye cataract Past Psychological History: No Psychological Hx Reported Smoking Status: Former smoker Past Alcohol Use History: Occasional Past Drug Use History: None Reported Medications and Allergies Home Medications Medication Instructions Recorded Confirmed Type Albuterol Sulfate [Ventolin HFA] 1 - 2 puff INHALATION RT-Q4H PRN 02/14/22 02/14/22 History Aspirin EC [Ecotrin] 325 mg PO DAILY 02/14/22 02/14/22 History Atorvastatin [Lipitor] 40 mg PO HS 02/14/22 02/14/22 History Azithromycin [Zithromax Z-pack (6 See Taper PO DAILY 02/14/22 02/14/22 History tabs)] Montelukast [Singulair] 10 mg PO DAILY 02/14/22 02/14/22 History Promethazine/Dextromethorphan 5 ml PO Q4H PRN 02/14/22 02/14/22 History [Promethazine-Dm Syrup] amLODIPine [Norvasc] 10 mg PO DAILY 02/14/22 02/14/22 History hydroCHLOROthiazide [Hydrodiuril] 50 mg PO DAILY 02/14/22 02/14/22 History predniSONE See Taper PO DAILY 02/14/22 02/14/22 History Allergies Allergy/AdvReac Type Severity Reaction Status Date / Time No Known Allergies Allergy Verified 02/14/22 15:27 Physical Exam Vitals: Vital Signs Temp Pulse Pulse Resp BP Pulse Ox 02/15/22 23:20 97 23 178/85 93 L 02/15/22 20:20 98.7 F 94 17 168/82 93 L 02/15/22 19:42 93 02/15/22 19:31 91 02/15/22 17:05 97.8 F 77 18 163/77 92 L 02/15/22 14:00 18 02/15/22 12:11 88 02/15/22 11:58 88 02/15/22 11:57 97.8 F 101 H 18 164/84 93 L 02/15/22 08:58 97.9 F 98 18 173/93 96 02/15/22 08:33 90 02/15/22 08:25 90 02/15/22 03:40 95 26 H 168/88 92 L Intake and Output 02/15/22 02/15/22 02/16/22 14:59 22:59 06:59 Intake Total 210 Output Total 500 300 350 Balance -290 -300 -350 Intake: Oral 210 Output: Urine 500 300 350 - Constitutional General appearance: mild distress - EENT Eyes: EOMI, PERRLA ENT: hearing grossly normal, normal oropharynx - Neck Neck: no lymphadenopathy Thyroid: bilateral: normal size - Respiratory Respiratory: right: diminished, wheezing - Cardiovascular Rhythm: regular Heart sounds: normal: S1, S2 - Gastrointestinal General gastrointestinal: decreased bowel sounds, soft - Integumentary Integumentary: normal - Neurologic Neurologic: CNII-XII intact - Musculoskeletal Musculoskeletal: generalized weakness, strength equal bilaterally - Psychiatric Psychiatric: A&O x's 3, appropriate affect Results CBC & Chem 7: 02/15/22 12:32 02/15/22 12:32 Labs: Abnormal Lab Results - Last 24 Hours (Table) 02/15/22 02/15/22 02/15/22 Range/Units 12:32 12:32 12:32 WBC 18.5 H (3.8-10.6) k/uL Neutrophils # 16.3 H (1.3-7.7) k/uL Sodium 133 L (137-145) mmol/L Potassium 3.4 L (3.5-5.1) mmol/L Chloride 95 L (98-107) mmol/L Creatinine 0.48 L (0.66-1.25) mg/dL Glucose 109 H (74-99) mg/dL Procalcitonin 1.68 H (0.02-0.09) ng/mL Microbiology - Last 24 Hours (Table) 02/14/22 16:00 Acid Fast Bacilli Smear - Final Bronchoalviolar Lavage - Right Acid Fast Bacilli Culture - Preliminary 02/14/22 14:30 Blood Culture - Preliminary Blood No Growth after 24 hours 02/14/22 14:10 Blood Culture - Preliminary Blood No Growth after 24 hours 02/14/22 16:00 Gram Stain - Preliminary Bronchoalviolar Lavage - Right Bronchial Washings Culture - Preliminary 02/14/22 16:00 Fungal Culture - Preliminary Bronchoalviolar Lavage - Right Comments: US report reviewed Chest x-ray: report reviewed CT scan - chest: report reviewed Assessment and Plan (1) Lung mass Narrative/Plan: Highly s/o cancer. Imaging, bronch findings and implications were discussed in detail - Procedure note was reviewed and d/w the pt. - Await biopsy for patholic diagnosis - Assuming malignnacy is confirmed, plan on PET as outpt for further staging - We also discussed doing MRI for FILM TESTS CHECKER staging. Currently the pt cannot lay flat for the procedure. Reevaluate for the same in next 1-2 days if. hopefully respiratory status improves Current Visit: Yes Status: Acute Code(s): R91.8 - OTHER NONSPECIFIC ABNORMAL FINDING OF LUNG FIELD SNOMED Code(s): 490835843 Plan: If pt has enough fluid, he will undergo thoracentesis. In that case, the procedure has potential to improve his breathing
[2022-02-16] MEDS: ALPRAZolam 0.25 MG TAB PO PRN ×4 (02:46→22:49)
[2022-02-16] MEDS: IPRATROPIUM-ALBUTEROL 3 ML NEB INHALATION SCH ×4 (03:57→19:46)
[2022-02-16] MEDS ORDERED: IPRATROPIUM-ALBUTEROL 3 ML NEB INHALATION PRN (03:58)
[2022-02-16 07:31] LABS: Basophils % (A) 0 %; Eosinophils % (A) 0 %; HCT 39.4 % (39.0-53.0); HGB 12.6 gm/dL (13.0-17.5); Lymphocytes % (A) 6 %; MCH 31.1 pg (25.0-35.0); MCV 97.1 fL (80.0-100.0); Mean Platelet Volume 7.2; Monocytes # (A) 0.9 k/uL (0-1.0); Monocytes % (A) 5 %; Neutrophils # (A) 14.9 k/uL (1.3-7.7); Neutrophils % (A) 88 %; Platelet Count 349 k/uL (150-450); RBC 4.05 m/uL (4.30-5.90); RDW 14.9 % (11.5-15.5)
[2022-02-16 07:43] LABS: African American GFR (CKD) >90 (>60 ml/min/1.73 sqM); Anion Gap 5 mmol/L; Blood Urea Nitrogen 15 mg/dL (9-20); Calcium 8.6 mg/dL (8.4-10.2); Carbon Dioxide 34 mmol/L (22-30); Chloride 93 mmol/L (98-107); Glucose 133 mg/dL (74-99); Non-African American GFR(CKD) >90 (>60 ml/min/1.73 sqM); Potassium 2.9 mmol/L (3.5-5.1); Sodium 132 mmol/L (137-145)
[2022-02-16] MEDS: MONTELUKAST 10 MG TAB PO SCH (09:16)
[2022-02-16] MEDS: guaiFENesin-Coden 100-10MG/5ML 10 ML CUP PO PRN ×2 (09:16→17:26)
[2022-02-16] MEDS: BENZONATATE 100 MG CAP PO SCH ×3 (09:16→21:04)
[2022-02-16] MEDS: amLODIPine 10 MG TAB PO SCH (09:17)
--- NOTE | 2022-02-16 11:20 | P.PN ---
Subjective Progress Note Date: 02/15/22 Principal diagnosis: Dyspnea/hypoxemia/large right upper lobe mass/ highly suspicious for bronchogenic carcinoma Right-sided pleural effusion 61-year-old male who presents emergency department from Dr. Yeboah's office. Patient was recently diagnosed with a lung mass on the right side with possible pleural effusion from a CAT scan. Dr. Yeboah on the patient needed to be brought into the hospital possibly have this pleural effusion drained and have oncology see him and order some biopsies extremity if this is indeed cancer and what type of cancer. Patient complains of some right-sided chest pain and also some shortness of breath per patient also states she's very anxious He just found out this news this morning. Patient denies any fever chills or cough per patient denies any abdominal pain patient denies nausea vomiting diarrhea. Chest x-ray was done on outpatient basis and the patient was found to have a large right upper lobe mass. Following that, the patient was sent to [facility] for a CAT scan of the chest that was done on 02/08/2022. The patient was found to have a heterogeneous enhancing mass and associated with lobar collapse involving the entirety of the right upper lobe measuring 7.8 x 6.7 cm in size and some postobstructive changes in the right upper lobe. There was also the bronchial involvement in the right mainstem bronchus. There were parenchymal opacities within the superior segment of the right lower lobe posteriorly measuring 4.8 x 2.2 cm in size, left lower lobe measuring 1.9 x 1.7 cm in size and 1.9 x 1.2 cm in size And a small right-sided pleural effusion as well as a small left-sided pleural effusion there was also evidence of a large bilateral supraclavicular lymph node measuring up to 1.1 cm in size. There was a large subcarinal lymph node measuring 1.5 cm in size. There was a right perihilar soft tissue attenuation difficult differentiate between adenopathy and a mass. Mildly large and father also seen in the para-aortic, AP window and left hilar areas. The patient does not use any pulmonary medications or inhalers did not have any hemoptysis. He is a chronic smoker quit smoking approximately 4 months ago. His been fully vaccinated for COVID 19. 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 This patient is quite cachectic. He is having some limited shortness of breath even at rest. A repeat chest x- ray was done today and shows a right upper lobe opacity and a enlarging right- sided pleural effusion. Patient is status post Bronchoscopy, transbronchial biopsies, as well as brushing, bronchial lavage of the right upper lobe Objective - Vital Signs Vital signs: Vital Signs Temp 97.9 F 02/15/22 08:58 Pulse 98 02/15/22 08:58 Resp 18 02/15/22 08:58 BP 173/93 02/15/22 08:58 Pulse Ox 96 02/15/22 08:58 Intake & Output 02/14/22 02/15/22 02/15/22 18:59 06:59 18:59 Intake Total 600 Output Total 300 Balance 600 -300 Weight 49.895 kg 50.2 kg Intake: IV 600 Oral 0 Output: Urine 300 Other: # Voids 1 1 - Exam Head exam was generally normal. . Neck was supple and without jugular venous distension, thyromegaly, or carotid bruits. Carotids were easily palpable bilaterally. There was no adenopathy. Lungs are diminished on the right lung base compared to left. Scattered rhonchi and scattered external wheeze. Cardiac exam; rhythm was regular; heart sounds were normal and physiologic splitting of the second heart sound was noted. There were no murmurs, rubs, clicks, or gallops. Abdominal exam revealed normal bowel sounds. The abdomen was soft, non-tender, and without masses, organomegaly, or appreciable enlargement of the abdominal aorta. Extremities; palpable pulses. There was no cyanosis, clubbing or edema. Skin; no evidence of significant rashes, suspicious appearing nevi or other concerning lesions. Neurologically, the patient is awake and alert and the patient does not have any focal neurological deficit. Cranial nerves intact. - Labs CBC & Chem 7: 02/16/22 06:35 02/16/22 06:35 Labs: Abnormal Lab Results - Last 24 Hours (Table) 02/14/22 02/14/22 02/14/22 Range/Units 11:44 11:44 11:44 WBC 17.9 H (3.8-10.6) k/uL Plt Count 478 H (150-450) k/uL Neutrophils # 15.1 H (1.3-7.7) k/uL Monocytes # 1.3 H (0-1.0) k/uL Sodium 132 L (137-145) mmol/L Chloride 93 L (98-107) mmol/L BUN 24 H (9-20) mg/dL Creatinine 0.62 L (0.66-1.25) mg/dL Glucose 112 H (74-99) mg/dL Alkaline Phosphatase 142 H (38-126) U/L Troponin I 0.074 H* (0.000-0.034) ng/mL Microbiology - Last 24 Hours (Table) 02/14/22 16:00 Gram Stain - Preliminary Bronchoalviolar Lavage - Right Bronchial Washings Culture - Preliminary 02/14/22 16:00 Acid Fast Bacilli Culture - Preliminary Bronchoalviolar Lavage - Right 02/14/22 16:00 Fungal Culture - Preliminary Bronchoalviolar Lavage - Right Assessment and Plan Assessment: 1. Dyspnea/hypoxemia/large right upper lobe mass/ highly suspicious for bronchogenic carcinoma - Evaluation reveals large mass causing collapse of the entire right upper lobe along with other possibilities in right and left lower lobe; mediastinotomy lymphadenopathies present along with ill-defined lesion at level of T2 and L3 vertebral body likely metastatic disease; it is endobronchial extension causing obstruction of right mainstem bronchus - Patient has been evaluated by pulmonary and recommending patient to be nothing by mouth with plans to proceed with bronchoscopy along with biopsies of right upper lobe mass - Patient received IV Rocephin in ED for possible postobstructive pneumonia - Oncology is consulted and recommendations are pending 2. Right-sided pleural effusion; small; likely not contributing to his symptom complex; no indication for thoracentesis at this time 3. COPD; not in exacerbation; continue with bronchodilator nebulizer treatment 3 times a day and when necessary; Singulair 10 mg daily 4. Hyperlipidemia; Lipitor 40 mg by mouth daily at bedtime 5. Hypertension; hydro-Diuril 50 mg daily along with amlodipine 10 mg daily DVT prophylaxis; SCDs only CODE STATUS; full code
[2022-02-16] MEDS ORDERED: POTASSIUM CHLORIDE 20 MEQ in WATER FOR INJECTION 1 100ML.BAG IVPB STA (11:29)
[2022-02-16] MEDS ORDERED: POTASSIUM CHLORIDE ER 20 MEQ TAB.ER PO STA (11:30)
--- NOTE | 2022-02-16 12:59 | XR ---
EXAMINATION TYPE: XR chest 1V DATE OF EXAM: 02/16/2022 CLINICAL HISTORY: Post right-sided thoracentesis. TECHNIQUE: Single AP portable upright view of the chest is obtained. COMPARISON: Chest x-ray from 2 days earlier FINDINGS: Persistent but improved small right basilar pleural fluid collection or effusion. Chronic parenchymal and emphysematous changes with tiny left pleural effusion and left mid lung increased mar kings redemonstrated. Dense masslike opacification right upper lung with right sided rotation and vol ume loss redemonstrated. Underlying mass noted on recent outside chest CT. No pneumothorax identified after right-sided thoracentesis. IMPRESSION: No pneumothorax after right-sided thoracentesis. Improved right pleural effusion noted.
--- NOTE | 2022-02-16 15:15 | P.PN ---
Subjective Progress Note Date: 02/16/22 02/15/2022, the patient is being seen for a follow-up. Still struggling with his breathing and shortness of breath and he is having frequent coughing. No hemoptysis. He is on DuoNeb nebulized treatments around the clock. Bronchoscopy was done yesterday and results are still pending for now. The patient has no other specific complaint is otherwise. I noted development of a right-sided pleural effusion. We'll obtain ultrasound markings for possible thoracentesis in the future. He is cachectic. He is weak. Appetite is poor. Outpatient medications have been all resumed. 02/16/2022, patient is doing poorly. He has short of breath. Based on that, I made a decision to drain the pleural fluid on the right side. This was done at the bedside and there was no evidence of any complications following the procedure. The patient did have some increased cough and following the procedure which is essentially subsided. There was no evidence of pneumothorax post procedure and the patient had a total of 900 mL of fluid removed from the right lung and the patient improved aeration of the right lower lung area. He continues to have a large masslike density in the right upper lobe. Bronchos copy and plasma collapse of the right upper lobe was done earlier. As such, we have transbronchial biopsies and pleural fluid samples looking for any underlying malignancy. He is extremely emaciated and cachectic. He was seen also by oncology. Objective - Vital Signs Vital signs: Vital Signs Temp 97.8 F 02/16/22 12:39 Pulse 77 02/16/22 12:39 Resp 18 02/16/22 14:06 BP 167/89 02/16/22 12:39 Pulse Ox 92 L 02/16/22 12:39 Intake & Output 02/15/22 02/16/22 02/16/22 18:59 06:59 18:59 Intake Total 210 160 Output Total 800 350 500 Balance -590 -350 -340 Intake: Oral 210 160 Output: Urine 800 350 500 - Exam The patient is a pink puffer and he is quite cachectic and emaciated. He is a mild degree of respiratory distress. On room air oxygen. He is awake and alert. Head exam was generally normal. There was no scleral icterus or corneal arcus. Mucous membranes were moist. Neck was supple and without jugular venous distension, thyromegaly, or carotid bruits. Carotids were easily palpable bilaterally. There was no adenopathy. Lungs are diminished on the right lung base compared to left. Scattered rhonchi and scattered external wheeze. Cardiac exam revealed the PMI to be normally situated and sized. The rhythm was regular and no extrasystoles were noted during several minutes of auscultation. The first and second heart sounds were normal and physiologic splitting of the second heart sound was noted. There were no murmurs, rubs, clicks, or gallops. Abdominal exam revealed normal bowel sounds. The abdomen was soft, non-tender, and without masses, organomegaly, or appreciable enlargement of the abdominal aorta. Examination of the extremities revealed easily palpable radial, femoral and pedal pulses. There was no cyanosis, clubbing or edema. Examination of the skin revealed no evidence of significant rashes, suspicious a ppearing nevi or other concerning lesions. Neurologically, the patient is awake and alert and the patient does not have any focal neurological deficit. Cranial nerves are essentially intact. - Labs CBC & Chem 7: 02/16/22 06:35 02/16/22 06:35 Labs: Abnormal Lab Results - Last 24 Hours (Table) 02/15/22 02/16/22 02/16/22 Range/Units 12:32 06:35 06:35 WBC 17.0 H (3.8-10.6) k/uL RBC 4.05 L (4.30-5.90) m/uL Hgb 12.6 L (13.0-17.5) gm/dL Neutrophils # 14.9 H (1.3-7.7) k/uL Sodium 132 L (137-145) mmol/L Potassium 2.9 L (3.5-5.1) mmol/L Chloride 93 L (98-107) mmol/L Carbon Dioxide 34 H (22-30) mmol/L Creatinine 0.45 L (0.66-1.25) mg/dL Glucose 133 H (74-99) mg/dL Procalcitonin 1.68 H (0.02-0.09) ng/mL Microbiology - Last 24 Hours (Table) 02/14/22 16:00 Gram Stain - Final Bronchoalviolar Lavage - Right Bronchial Washings Culture - Final 02/14/22 16:00 Acid Fast Bacilli Smear - Final Bronchoalviolar Lavage - Right Acid Fast Bacilli Culture - Preliminary 02/14/22 14:30 Blood Culture - Preliminary Blood No Growth after 24 hours 02/14/22 14:10 Blood Culture - Preliminary Blood No Growth after 24 hours Assessment and Plan Plan: 1 large right upper lobe mass measuring 7.9 x 6.7 cm in size. 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 Findings are highly suspicious for bronchogenic carcinoma. 2 shortness of breath secondary to above 3 COPD 4 right-sided pleural effusion, post thoracentesis with a total of 900 mL of pleural fluid being aspirated. 5 severe cachexia and weight loss Plan The patient is post bronchoscopy, awaiting final results Thoracentesis was done without any complications. Awaiting pleural fluid cytology. Showed both of these procedures be nondiagnostic, the patient will need a transthoracic needle aspirate of the right upper lobe consolidating mass Carries a very poor prognosis based on the above-mentioned comorbidities We'll need an oncology consultation
--- NOTE | 2022-02-16 15:16 | P.PCN ---
Date of Procedure: 02/16/22 Preoperative Diagnosis: Right-sided pleural effusion Postoperative Diagnosis: Right-sided pleural effusion Procedure(s) Performed: Thoracentesis, right-sided Anesthesia: local Surgeon: Fawad Odonnell Estimated Blood Loss (ml): 0 Disposition: floor Operative Findings: A time out was performed and the chest x-ray was reviewed, the appropriate side was confirmed and marked. My hands were washed immediately prior to the procedure. I wore a surgical cap, mask with protective eyewear, sterile gown and sterile gloves throughout the procedure. The patient was prepped and draped in a sterile manner using chlorhexidine scrub after the appropriate level was percussed and confirmed by ultrasound. 1% lidocaine was used to anesthesize the skin, subcutaneous tissue, superior aspect of the rib periosteum and parietal pleura. A finder needle was then introduced over the superior aspect of the rib to locate the pleural fluid; 2colored fluid was aspirated at a depth of approximately 2 cm. A 10-blade scalpel was used to deangelo the skin at the insertion site. The [id number] needle was then introduced through the skin incision into the pleural space using negative aspiration pressure and the red colometric indicator to confirm appropriate positioning of the needle. The thoracentesis catheter was then threaded without difficulty. 900 ml of turbid colored fluid was removed without difficulty. The catheter was then removed. No immediate complications were noted during the procedure. A post-procedure chest x-ray is pending at the time of this note. The fluid will be sent for studies. Estimated blood loss is 0cc
[2022-02-16] MEDS: SCOPOLAMINE 1 MG/72 HR PATCH TRANSDERM SCH (18:48)
[2022-02-16] MEDS: MORPHINE SULFATE 2 MG/ML SYRINGE IVP PRN (18:49)
--- NOTE | 2022-02-16 19:42 | P.PN ---
Subjective Progress Note Date: 02/16/22 Principal diagnosis: Dyspnea/hypoxemia/large right upper lobe mass/ highly suspicious for bronchogenic carcinoma Right-sided pleural effusion 61-year-old male who presents emergency department from Dr. Yeboah's office. Patient was recently diagnosed with a lung mass on the right side with possible pleural effusion from a CAT scan. Dr. Yeboah on the patient needed to be brought into the hospital possibly have this pleural effusion drained and have oncology see him and order some biopsies extremity if this is indeed cancer and what type of cancer. Patient complains of some right-sided chest pain and also some shortness of breath per patient also states she's very anxious He just found out this news this morning. Patient denies any fever chills or cough per patient denies any abdominal pain patient denies nausea vomiting diarrhea. Chest x-ray was done on outpatient basis and the patient was found to have a large right upper lobe mass. Following that, the patient was sent to [facility] for a CAT scan of the chest that was done on 02/08/2022. The patient was found to have a heterogeneous enhancing mass and associated with lobar collapse involving the entirety of the right upper lobe measuring 7.8 x 6.7 cm in size and some postobstructive changes in the right upper lobe. There was also the bronchial involvement in the right mainstem bronchus. There were parenchymal opacities within the superior segment of the right lower lobe posteriorly measuring 4.8 x 2.2 cm in size, left lower lobe measuring 1.9 x 1.7 cm in size and 1.9 x 1.2 cm in size And a small right-sided pleural effusion as well as a small left-sided pleural effusion there was also evidence of a large bilateral supraclavicular lymph node measuring up to 1.1 cm in size. There was a large subcarinal lymph node measuring 1.5 cm in size. There was a right perihilar soft tissue attenuation difficult differentiate between adenopathy and a mass. Mildly large and father also seen in the para-aortic, AP window and left hilar areas. The patient does not use any pulmonary medications or inhalers did not have any hemoptysis. He is a chronic smoker quit smoking approximately 4 months ago. His been fully vaccinated for COVID 19. 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 This patient is quite cachectic. He is having some limited shortness of breath even at rest. A repeat chest x- ray was done today and shows a right upper lobe opacity and a enlarging right- sided pleural effusion. Patient is status post Bronchoscopy, transbronchial biopsies, as well as brushing, bronchial lavage of the right upper lobe 02/16/2022 Patient is seen and evaluated sitting up in bed; continues to report dry cough; continues to have shortness of breath Vital signs are reviewed and reveal temperature 0.78, pulse 77, respiration 18 and blood pressure 1 6700 [id number] saturation of 92% Pulmonary on board; patient underwent thoracentesis with removal of 900 mL of fluid was removed from right lung Patient is status post bronchoscopy with transbronchial biopsies and fluent fluid samples Labs are reviewed and reveal WBC of 17, hemoglobin of 12.6; sodium 132, potassium 2.9; potassium has been replaced with 20 mEq IV along with 40 mEq by mouth; continue to monitor electrolytes Objective - Vital Signs Vital signs: Vital Signs Temp 97.8 F 02/16/22 09:16 Pulse 98 02/16/22 11:16 Resp 18 02/16/22 09:16 BP 171/93 02/16/22 09:16 Pulse Ox 96 02/16/22 09:16 Intake & Output 02/15/22 02/16/22 02/16/22 18:59 06:59 18:59 Intake Total 210 160 Output Total 800 350 500 Balance -590 -350 -340 Intake: Oral 210 160 Output: Urine 800 350 500 - Exam Head exam was generally normal. . Neck was supple and without jugular venous distension, thyromegaly, or carotid bruits. Carotids were easily palpable bilaterally. There was no adenopathy. Lungs are diminished on the right lung base compared to left. Scattered rhonchi and scattered external wheeze. Cardiac exam; rhythm was regular; heart sounds were normal and physiologic splitting of the second heart sound was noted. There were no murmurs, rubs, clicks, or gallops. Abdominal exam revealed normal bowel sounds. The abdomen was soft, non-tender, and without masses, organomegaly, or appreciable enlargement of the abdominal aorta. Extremities; palpable pulses. There was no cyanosis, clubbing or edema. Skin; no evidence of significant rashes, suspicious appearing nevi or other concerning lesions. Neurologically, the patient is awake and alert and the patient does not have any focal neurological deficit. Cranial nerves intact. - Labs CBC & Chem 7: 02/16/22 06:35 02/16/22 06:35 Labs: Abnormal Lab Results - Last 24 Hours (Table) 02/15/22 02/15/22 02/15/22 Range/Units 12:32 12:32 12:32 WBC 18.5 H (3.8-10.6) k/uL RBC (4.30-5.90) m/uL Hgb (13.0-17.5) gm/dL Neutrophils # 16.3 H (1.3-7.7) k/uL Sodium 133 L (137-145) mmol/L Potassium 3.4 L (3.5-5.1) mmol/L Chloride 95 L (98-107) mmol/L Carbon Dioxide (22-30) mmol/L Creatinine 0.48 L (0.66-1.25) mg/dL Glucose 109 H (74-99) mg/dL Procalcitonin 1.68 H (0.02-0.09) ng/mL 02/16/22 02/16/22 Range/Units 06:35 06:35 WBC 17.0 H (3.8-10.6) k/uL RBC 4.05 L (4.30-5.90) m/uL Hgb 12.6 L (13.0-17.5) gm/dL Neutrophils # 14.9 H (1.3-7.7) k/uL Sodium 132 L (137-145) mmol/L Potassium 2.9 L (3.5-5.1) mmol/L Chloride 93 L (98-107) mmol/L Carbon Dioxide 34 H (22-30) mmol/L Creatinine 0.45 L (0.66-1.25) mg/dL Glucose 133 H (74-99) mg/dL Procalcitonin (0.02-0.09) ng/mL Microbiology - Last 24 Hours (Table) 02/14/22 16:00 Acid Fast Bacilli Smear - Final Bronchoalviolar Lavage - Right Acid Fast Bacilli Culture - Preliminary 02/14/22 14:30 Blood Culture - Preliminary Blood No Growth after 24 hours 02/14/22 14:10 Blood Culture - Preliminary Blood No Growth after 24 hours Assessment and Plan Assessment: 1. Dyspnea/hypoxemia/large right upper lobe mass/ highly suspicious for bronchogenic carcinoma - Evaluation reveals large mass causing collapse of the entire right upper lobe along with other possibilities in right and left lower lobe; mediastinotomy lymphadenopathies present along with ill-defined lesion at level of T2 and L3 vertebral body likely metastatic disease; it is endobronchial extension causing obstruction of right mainstem bronchus - Patient has been evaluated by pulmonary and recommending patient to be nothing by mouth with plans to proceed with bronchoscopy along with biopsies of right upper lobe mass - Patient received IV Rocephin in ED for possible postobstructive pneumonia - Oncology is consulted and recommendations are pending 2. Right-sided pleural effusion; small; likely not contributing to his symptom complex; no indication for thoracentesis at this time 3. COPD; not in exacerbation; continue with bronchodilator nebulizer treatment 3 times a day and when necessary; Singulair 10 mg daily 4. Hyperlipidemia; Lipitor 40 mg by mouth daily at bedtime 5. Hypertension; hydro-Diuril 50 mg daily along with amlodipine 10 mg daily DVT prophylaxis; SCDs only CODE STATUS; full code
[2022-02-16] MEDS: ATORVASTATIN 40 MG TAB PO SCH (21:04)
[2022-02-16 23:09] LABS: Glucose, BF Source Pleural Fluid; Glucose, Body Fluid 117 mg/dL; LDH, Body Fluid Source Pleural Fluid; T. Protein, Body Fluid Source Pleural Fluid; Total Protein, Body Fluid 3680 mg/dL
[2022-02-16 23:29] LABS: Appearance,BF Cloudy
[2022-02-17] MEDS: MORPHINE SULFATE 2 MG/ML SYRINGE IVP PRN ×2 (01:45→14:07)
[2022-02-17 07:44] LABS: African American GFR (CKD) >90 (>60 ml/min/1.73 sqM); Anion Gap 6 mmol/L; Blood Urea Nitrogen 16 mg/dL (9-20); Calcium 8.7 mg/dL (8.4-10.2); Carbon Dioxide 39 mmol/L (22-30); Chloride 89 mmol/L (98-107); Glucose 98 mg/dL (74-99); Non-African American GFR(CKD) >90 (>60 ml/min/1.73 sqM); Potassium 3.3 mmol/L (3.5-5.1); Sodium 134 mmol/L (137-145)
[2022-02-17] MEDS: IPRATROPIUM-ALBUTEROL 3 ML NEB INHALATION SCH ×3 (08:52→21:42)
[2022-02-17] MEDS: MONTELUKAST 10 MG TAB PO SCH (09:49)
[2022-02-17] MEDS: amLODIPine 10 MG TAB PO SCH (09:49)
[2022-02-17] MEDS: BENZONATATE 100 MG CAP PO SCH ×3 (09:49→20:41)
[2022-02-17] MEDS ORDERED: POTASSIUM CHLORIDE ER 20 MEQ TAB.ER PO STA (11:07)
--- NOTE | 2022-02-17 13:14 | P.PN ---
Subjective Progress Note Date: 02/17/22 Principal diagnosis: new lung mass Objective - Vital Signs Vital signs: Vital Signs Temp 98 F 02/17/22 12:49 Pulse 98 02/17/22 12:49 Resp 17 02/17/22 12:49 BP 164/89 02/17/22 12:49 Pulse Ox 90 L 02/17/22 12:49 Intake & Output 02/16/22 02/17/22 02/17/22 18:59 06:59 18:59 Intake Total 160 Output Total 1150 200 200 Balance -990 -200 -200 Intake: Oral 160 Output: Urine 1150 200 200 Other: Voiding Method Urinal Urinal # Voids 1 - Exam - Constitutional General appearance: mild distress - EENT Eyes: EOMI, PERRLA ENT: hearing grossly normal, normal oropharynx - Neck Neck: no lymphadenopathy Thyroid: bilateral: normal size - Respiratory Respiratory: right: diminished, wheezing - Cardiovascular Tachy - Gastrointestinal General gastrointestinal: decreased bowel sounds, soft - Integumentary Integumentary: normal - Neurologic Neurologic: CNII-XII intact - Musculoskeletal Musculoskeletal: generalized weakness, strength equal bilaterally - Psychiatric Psychiatric: A&O x's 3, appropriate affect - Labs CBC & Chem 7: 02/16/22 06:35 02/17/22 05:23 Labs: Abnormal Lab Results - Last 24 Hours (Table) 02/17/22 Range/Units 05:23 Sodium 134 L (137-145) mmol/L Potassium 3.3 L (3.5-5.1) mmol/L Chloride 89 L (98-107) mmol/L Carbon Dioxide 39 H (22-30) mmol/L Creatinine 0.40 L (0.66-1.25) mg/dL Microbiology - Last 24 Hours (Table) 02/16/22 12:28 Gram Stain - Preliminary Pleural Fluid Body Fluid Culture - Preliminary 02/14/22 14:30 Blood Culture - Preliminary Blood No Growth after 48 hours 02/14/22 14:10 Blood Culture - Preliminary Blood No Growth after 48 hours 02/14/22 16:00 Gram Stain - Final Bronchoalviolar Lavage - Right Bronchial Washings Culture - Final Assessment and Plan (1) Lung mass Narrative/Plan: 02/08/22: Right upper hilar and rul mass identified in outside CT - Status Post Brinch on Thursday02/14/22 - Status post Thoracentesis Thursday Highly suspicious of cancer. Imaging, bronch findings and implications were discussed in detail - Await biopsy for pathology for definitive diagnosis - Assuming malignancy is confirmed, plan on PET as outpt for further staging - We also discussed doing MRI for [facility] staging. He has been unable to lay flat for the MRI procedure. - Can re-try today since a little more comfortable after thoracentesis. Current Visit: Yes Status: Acute Code(s): R91.8 - OTHER NONSPECIFIC ABNORMAL FINDING OF LUNG FIELD SNOMED Code(s): 769918589 Dr. Briones: I have performed the completed history and physical exam, developed the full impression and plan. This was discussed with Makeda Jaimes NP and agree with dictation, dictated as a scribe Current Visit: Yes Status: Acute Code(s): R91.8 - OTHER NONSPECIFIC ABNORMAL FINDING OF LUNG FIELD SNOMED Code(s): 589286905
--- NOTE | 2022-02-17 15:54 | P.PN ---
Subjective Progress Note Date: 02/17/22 Principal diagnosis: Acute hypoxic respiratory failure, secondary to acute exacerbation of COPD and strong suspicion of bronchogenic carcinoma involving her right upper lobe with m ediastinal adenopathy and pleural effusion 02/15/2022, the patient is being seen for a follow-up. Still struggling with his breathing and shortness of breath and he is having frequent coughing. No h emoptysis. He is on DuoNeb nebulized treatments around the clock. Bronchoscopy was done yesterday and results are still pending for now. The patient has no other specific complaint is otherwise. I noted development of a right-sided pleural effusion. We'll obtain ultrasound markings for possible thoracentesis in the future. He is cachectic. He is weak. Appetite is poor. Outpatient medications have been all resumed. 02/16/2022, patient is doing poorly. He has short of breath. Based on that, I made a decision to drain the pleural fluid on the right side. This was done at the bedside and there was no evidence of any complications following the procedure. The patient did have some increased cough and following the procedure which is essentially subsided. There was no evidence of pneumothorax post procedure and the patient had a total of 900 mL of fluid removed from the right lung and the patient improved aeration of the right lower lung area. He continues to have a large masslike density in the right upper lobe. Bronchoscopy and plasma collapse of the right upper lobe was done earlier. As such, we have transbronchial biopsies and pleural fluid samples looking for any underlying malignancy. He is extremely emaciated and cachectic. He was seen also by oncology. Patient was reevaluated today on 02/17/22, patient continues to cough and wheeze continues to have shortness of breath with any activity. He is on 6 L nasal cannula, and he seems to be in mild respiratory distress. Cytology is pending from his pleural effusion and pathology is pending from his bronchoscopy and transbronchial biopsy done by Dr. Odonnell few days ago. Patient is on bronchodilators, he is on oxygen, and overall clinical picture does not look very promising. The pleural effusion obviously is exudative in nature, and I believe it is malignant unless for otherwise. Patient is on bronchodilators, DuoNeb, he is also on antibiotics empirically, and I will add methylprednisolone for this patient. Objective - Vital Signs Vital signs: Vital Signs Temp 98 F 02/17/22 12:49 Pulse 102 H 02/17/22 13:50 Resp 17 02/17/22 12:49 BP 164/89 02/17/22 12:49 Pulse Ox 90 L 02/17/22 12:49 Intake & Output 02/16/22 02/17/22 02/17/22 18:59 06:59 18:59 Intake Total 160 120 Output Total 1150 200 425 Balance -990 -200 -305 Intake: Oral 160 120 Output: Urine 1150 200 425 Other: Voiding Method Urinal Urinal # Voids 1 - Exam Physical Exam: Revealed a 61-year-old white male in mild distress Head: Atraumatic, normocephalic HEENT:[Neck is supple.] [No neck masses.] [No thyromegaly.] [No JVD.] Chest: [Diffuse rhonchi and wheezes bilaterally. Cardiac Exam: [Normal S1 and S2, no S3 gallop, no murmur.] Abdomen: [Soft, nontender, no megaly, no rebound, no guarding, normal bowel sounds.] Extremities: [No clubbing, no edema, no cyanosis.] Neurological Exam: [No focal neurologic deficit.] Skin: No rashes. Musculoskeletal: No deformities noted limitation range of motion Psychiatric: Normal mood affect and normal mental status examination. - Labs CBC & Chem 7: 02/16/22 06:35 02/17/22 05:23 Labs: Abnormal Lab Results - Last 24 Hours (Table) 02/17/22 Range/Units 05:23 Sodium 134 L (137-145) mmol/L Potassium 3.3 L (3.5-5.1) mmol/L Chloride 89 L (98-107) mmol/L Carbon Dioxide 39 H (22-30) mmol/L Creatinine 0.40 L (0.66-1.25) mg/dL Microbiology - Last 24 Hours (Table) 02/16/22 12:28 Gram Stain - Preliminary Pleural Fluid Body Fluid Culture - Preliminary 02/14/22 14:30 Blood Culture - Preliminary Blood No Growth after 48 hours 02/14/22 14:10 Blood Culture - Preliminary Blood No Growth after 48 hours Assessment and Plan Assessment: Acute hypoxic respiratory failure secondary to acute exacerbation of COPD, large right upper lobe mass considered malignant unless for otherwise, and pleural effusion considered malignant unless for otherwise. Large right upper lobe mass with mediastinal adenopathy considered malignant un less for otherwise. Right-sided pleural effusion status post thoracentesis again considered malignan t unless for otherwise. Severe cachexia and weight loss secondary to underlying malignancy Status post bronchoscopy and thoracentesis Recommendation: Continue present course of bronchodilators Added Solu-Medrol Continue oxygen and titrate accordingly Continue GI and DVT prophylaxis We'll continue to follow. Prognosis is extremely poor and guarded. Time with Patient: Less than 30
[2022-02-17 16:40] LABS: Glucose,Whole Blood 124 mg/dL (75-99)
[2022-02-17] MEDS: INSULIN ASPART (NovoLOG) 100 UNIT/ML VIAL SQ SCH ×2 (16:43→20:41)
[2022-02-17] MEDS: methylPREDNISolone SOD SUCCI 125 MG/2 ML VIAL IV SCH ×2 (17:35→23:09)
[2022-02-17 20:06] LABS: Glucose,Whole Blood 317 mg/dL (75-99)
[2022-02-17] MEDS: ATORVASTATIN 40 MG TAB PO SCH (20:41)
[2022-02-17] MEDS: ALPRAZolam 0.25 MG TAB PO PRN (20:42)
--- NOTE | 2022-02-18 00:33 | P.PN ---
Subjective Progress Note Date: 02/17/22 Dyspnea/hypoxemia/large right upper lobe mass/ highly suspicious for bronchogenic carcinoma Right-sided pleural effusion 61-year-old male who presents emergency department from Dr. Yeboah's office. Patient was recently diagnosed with a lung mass on the right side with possible pleural effusion from a CAT scan. Dr. Yeboah on the patient needed to be brought into the hospital possibly have this pleural effusion drained and have oncology see him and order some biopsies extremity if this is indeed cancer and what type of cancer. Patient complains of some right-sided chest pain and also some shortness of breath per patient also states she's very anxious He just found out this news this morning. Patient denies any fever chills or cough per patient denies any abdominal pain patient denies nausea vomiting diarrhea. Chest x-ray was done on outpatient basis and the patient was found to have a large right upper lobe mass. Following that, the patient was sent to [facility] for a CAT scan of the chest that was done on 02/08/2022. The patient was found to have a heterogeneous enhancing mass and associated with lobar collapse involving the entirety of the right upper lobe measuring 7.8 x 6.7 cm in size and some postobstructive changes in the right upper lobe. There was also the bronchial involvement in the right mainstem bronchus. There were parenchymal opacities within the superior segment of the right lower lobe posteriorly measuring 4.8 x 2.2 cm in size, left lower lobe measuring 1.9 x 1.7 cm in size and 1.9 x 1.2 cm in size And a small right-sided pleural effusion as well as a small left-sided pleural effusion there was also evidence of a large bilateral supraclavicular lymph node measuring up to 1.1 cm in size. There was a large subcarinal lymph node measuring 1.5 cm in size. There was a right perihilar soft tissue attenuation difficult differentiate between adenopathy and a mass. Mildly large and father also seen in the para-aortic, AP window and left hilar areas. The patient does not use any pulmonary medications or inhalers did not have any hemoptysis. He is a chronic smoker quit smoking approximately 4 months ago. His been fully vaccinated for COVID 19. 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 This patient is quite cachectic. He is having some limited shortness of breath even at rest. A repeat chest x- ray was done today and shows a right upper lobe opacity and a enlarging right- sided pleural effusion. Patient is status post Bronchoscopy, transbronchial biopsies, as well as brushing, bronchial lavage of the right upper lobe 02/16/2022 Patient is seen and evaluated sitting up in bed; continues to report dry cough; continues to have shortness of breath Vital signs are reviewed and reveal temperature 0.78, pulse 77, respiration 18 and blood pressure 1 [id number] saturation of 92% Pulmonary on board; patient underwent thoracentesis with removal of 900 mL of fluid was removed from right lung Patient is status post bronchoscopy with transbronchial biopsies and fluent fluid samples Labs are reviewed and reveal WBC of 17, hemoglobin of 12.6; sodium 132, potassium 2.9; potassium has been replaced with 20 mEq IV along with 40 mEq by mouth; continue to monitor electrolytes 02/17/2022 Patient is seen this morning sleeping, but easily arousable. Patient appears exhausted. Patient reports to not feeling well and not sleeping. Patient is status post thoracentesis with biopsy and pulmonary following closely. Oncology following. Awaiting pathology. Highly suspicious for carcinoma. Patient continues to be short of breath and is currently maintained on 10 L HF via NC. Patient is continued on IV steroids, IV antibiotics and breathing inhalational treatments and will continue. Potassium is 3.3 today and will replace and repeat am labs. Follow up chest xray ordered for am as well. Review of systems: Constitutional: reports of fatigue, no reports of fever, or chills Cardiovascular: No reports of chest pain or palpitations Respiratory: reports of continued shortness of breath and cough, patient reports mild improvement status post thoracentesis GI: No reports of nausea, vomiting, or diarrhea : No reports of dysuria or retention Neurovascular: reports of generalized weakness All medications have been reviewed Active Medications Albuterol/Ipratropium (Ipratropium-Albuterol 3 Ml Neb) 3 ml INHALATION RT-TID [facility] Last Admin: 02/17/22 13:37 Dose: 3 ml Documented by: Albuterol/Ipratropium (Ipratropium-Albuterol 3 Ml Neb) 3 ml INHALATION RT-Q4H PRN PRN Reason: Shortness Of Breath Or Wheezing Alprazolam (Alprazolam 0.25 Mg Tab) 0.25 mg PO QID PRN PRN Reason: Anxiety Last Admin: 02/16/22 22:49 Dose: 0.25 mg Documented by: Amlodipine Besylate (Amlodipine 10 Mg Tab) 10 mg PO DAILY [facility] Last Admin: 02/17/22 09:49 Dose: 10 mg Documented by: Atorvastatin Calcium (Atorvastatin 40 Mg Tab) 40 mg PO HS [facility] Last Admin: 02/16/22 21:04 Dose: 40 mg Documented by: Benzonatate (Benzonatate 100 Mg Cap) 200 mg PO TID [facility] Last Admin: 02/17/22 16:46 Dose: 200 mg Documented by: Guaifenesin (Guaifenesin Syrup 100mg/5ml 200 Mg/10 Ml Cup) 200 mg PO TID PRN PRN Reason: Cough Last Admin: 02/15/22 11:06 Dose: 200 mg Documented by: Guaifenesin/Codeine Phosphate (Guaifenesin-Coden 100-10mg/5ml 10 Ml Cup) 10 ml PO Q6HR PRN PRN Reason: Cough Last Admin: 02/16/22 17:26 Dose: 10 ml Documented by: Hydrochlorothiazide (Hydrochlorothiazide 50 Mg Tab) 50 mg PO DAILY [facility] Last Admin: 02/17/22 10:25 Dose: 50 mg Documented by: Ceftriaxone Sodium 1 gm/ (Sodium Chloride) 50 mls @ 100 mls/hr IVPB Q24H [facility]; Protocol Last Admin: 02/16/22 21:04 Dose: 100 mls/hr Documented by: Insulin Aspart (Insulin Aspart (Novolog) 100 Unit/Ml Vial) 0 unit SQ ACHS [facility]; Protocol Last Admin: 02/17/22 16:43 Dose: Not Given Documented by: Methylprednisolone Sodium Succinate (Methylprednisolone Sod Succi 125 Mg/2 Ml Vial) 60 mg IV Q6HR [facility] Last Admin: 02/17/22 17:35 Dose: 60 mg Documented by: Montelukast Sodium (Montelukast 10 Mg Tab) 10 mg PO DAILY [facility] Last Admin: 02/17/22 09:49 Dose: 10 mg Documented by: Morphine Sulfate (Morphine Sulfate 2 Mg/Ml Syringe) 2 mg IVP Q4HR PRN PRN Reason: Pain/Discomfort Last Admin: 02/17/22 14:07 Dose: 2 mg Documented by: Scopolamine (Scopolamine 1.5mg/72hr Patch) 1 patch TRANSDERM Q72H [facility] Last Admin: 02/16/22 18:48 Dose: 1 patch Documented by: PHYSICAL EXAMINATION: GENERAL: The patient is currently asleep, but arousable, alert and oriented 3, Well developed, well nourished. Obese. HEENT: Pupils are round and reacting to light. EOMI. no scleral icterus. No conjunctival pallor. Normocephalic, atraumatic. No pharyngeal erythema. No thyromegaly. CARDIOVASCULAR: S1 and S2 muffled PULMONARY: diminished breath sounds bilaterally with scattered rhonchi and crackles noted. ABDOMEN: soft. thin, non-tender on exam. non-distended, normoactive bowel sounds. No palpable organomegaly. MUSCULOSKELETAL: No joint swelling or deformity. EXTREMITIES: No cyanosis, clubbing, or pedal edema. NEUROLOGICAL: No gross neurological deficits noted. Diffuse weakness SKIN: No rashes. Assessment: - Dyspnea/hypoxemia/large right upper lobe mass/ highly suspicious for bron chogenic carcinoma: evaluation reveals large mass causing collapse of the entire right upper lobe along with other possibilities in right and left lower lobe; mediastinotomy lymphadenopathies present along with ill-defined lesion at level of T2 and L3 vertebral body likely metastatic disease; it is endobronchial extension causing obstruction of right mainstem bronchus, pulmonary and oncology following and awaiting pathology from biopsy -Right-sided pleural effusion; status post thoracentesis with approx 900cc removed and sent for analysis -COPD; not in exacerbation; continue with bronchodilator nebulizer treatment 3 times a day and when necessary; Singulair 10 mg daily -Hyperlipidemia -Hypertension -DVT prophylaxis; SCDs only -GI prophylaxis Plan: Recommend to continue with breathing inhalational treatments and IV steroids. Patient is being followed by pulmonary and oncology. Patient continues on IV ceftriaxone. Patient requiring more oxygen and currently on 8L HF and requiring more. Awaiting pathology report and fluid analysis from bronch and thoracentesi s. Will repeat am labs and monitor closely. Prognosis remains quite guarded. The impression and plan of care has been dictated by Mary Zuñiga, nurse practitioner as directed. MD Noe I have performed a history and examination and MDM of this patient, discussed the same with the dictator, and agree with the dictator's assessment and plan as written ,documented as a scribe. Based on total visit time, I have performed more than 50% of the visit. Objective - Vital Signs Vital signs: Vital Signs Temp 98.2 F 02/17/22 02:54 Pulse 100 02/17/22 09:03 Resp 20 02/17/22 02:54 BP 174/94 02/17/22 02:54 Pulse Ox 86 L 02/17/22 08:54 Intake & Output 02/16/22 02/17/22 02/17/22 18:59 06:59 18:59 Intake Total 160 Output Total 1150 200 200 Balance -990 -200 -200 Intake: Oral 160 Output: Urine 1150 200 200 Other: Voiding Method Urinal Urinal # Voids 1 - Labs CBC & Chem 7: 02/16/22 06:35 02/17/22 17:21 Labs: Abnormal Lab Results - Last 24 Hours (Table) 02/17/22 Range/Units 05:23 Sodium 134 L (137-145) mmol/L Potassium 3.3 L (3.5-5.1) mmol/L Chloride 89 L (98-107) mmol/L Carbon Dioxide 39 H (22-30) mmol/L Creatinine 0.40 L (0.66-1.25) mg/dL Microbiology - Last 24 Hours (Table) 02/16/22 12:28 Gram Stain - Preliminary Pleural Fluid Body Fluid Culture - Preliminary 02/14/22 14:30 Blood Culture - Preliminary Blood No Growth after 48 hours 02/14/22 14:10 Blood Culture - Preliminary Blood No Growth after 48 hours 02/14/22 16:00 Gram Stain - Final Bronchoalviolar Lavage - Right Bronchial Washings Culture - Final
[2022-02-18] MEDS: MORPHINE SULFATE 2 MG/ML SYRINGE IVP PRN ×3 (04:06→22:11)
[2022-02-18] MEDS: guaiFENesin SYRUP 100MG/5ML 200 MG/10 ML CUP PO PRN (04:07)
[2022-02-18 06:09] LABS: Glucose,Whole Blood 91 mg/dL (75-99)
[2022-02-18] MEDS: methylPREDNISolone SOD SUCCI 125 MG/2 ML VIAL IV SCH ×3 (06:24→18:34)
[2022-02-18] MEDS: INSULIN ASPART (NovoLOG) 100 UNIT/ML VIAL SQ SCH ×4 (06:25→19:55)
[2022-02-18 07:58] LABS: Basophils % (A) 0 %; Eosinophils % (A) 0 %; HCT 41.8 % (39.0-53.0); HGB 13.3 gm/dL (13.0-17.5); Lymphocytes # (A) 0.5 k/uL (1.0-4.8); Lymphocytes % (A) 4 %; MCH 30.8 pg (25.0-35.0); MCHC 31.9 g/dL (31.0-37.0); MCV 96.6 fL (80.0-100.0); Mean Platelet Volume 7.4; Monocytes # (A) 0.3 k/uL (0-1.0); Monocytes % (A) 2 %; Neutrophils # (A) 12.7 k/uL (1.3-7.7); Neutrophils % (A) 94 %; Platelet Count 329 k/uL (150-450); RBC 4.33 m/uL (4.30-5.90); RDW 15.2 % (11.5-15.5); WBC 13.5 k/uL (3.8-10.6)
[2022-02-18 08:07] LABS: ALT 17 U/L (4-49); AST 37 U/L (17-59); African American GFR (CKD) >90 (>60 ml/min/1.73 sqM); Albumin 2.9 g/dL (3.5-5.0); Alkaline Phosphatase 147 U/L (38-126); Anion Gap 4 mmol/L; Blood Urea Nitrogen 24 mg/dL (9-20); Carbon Dioxide 39 mmol/L (22-30); Chloride 89 mmol/L (98-107); Glucose 91 mg/dL (74-99); Magnesium 2.1 mg/dL (1.6-2.3); Non-African American GFR(CKD) >90 (>60 ml/min/1.73 sqM); Potassium 4.3 mmol/L (3.5-5.1); Sodium 132 mmol/L (137-145); Total Bilirubin 0.5 mg/dL (0.2-1.3); Total Protein 6.4 g/dL (6.3-8.2)
[2022-02-18] MEDS: IPRATROPIUM-ALBUTEROL 3 ML NEB INHALATION SCH ×3 (08:17→20:05)
[2022-02-18] MEDS: ALPRAZolam 0.25 MG TAB PO PRN ×2 (08:56→19:54)
[2022-02-18] MEDS: MONTELUKAST 10 MG TAB PO SCH (08:56)
[2022-02-18] MEDS: BENZONATATE 100 MG CAP PO SCH ×3 (08:56→19:55)
[2022-02-18] MEDS: amLODIPine 10 MG TAB PO SCH (08:56)
--- NOTE | 2022-02-18 11:36 | P.PN ---
Subjective Progress Note Date: 02/18/22 Principal diagnosis: Acute hypoxic respiratory failure, secondary to acute exacerbation of COPD and strong suspicion of bronchogenic carcinoma involving her right upper lobe with m ediastinal adenopathy and pleural effusion 02/15/2022, the patient is being seen for a follow-up. Still struggling with his breathing and shortness of breath and he is having frequent coughing. No h emoptysis. He is on DuoNeb nebulized treatments around the clock. Bronchoscopy was done yesterday and results are still pending for now. The patient has no other specific complaint is otherwise. I noted development of a right-sided pleural effusion. We'll obtain ultrasound markings for possible thoracentesis in the future. He is cachectic. He is weak. Appetite is poor. Outpatient medications have been all resumed. 02/16/2022, patient is doing poorly. He has short of breath. Based on that, I made a decision to drain the pleural fluid on the right side. This was done at the bedside and there was no evidence of any complications following the procedure. The patient did have some increased cough and following the procedure which is essentially subsided. There was no evidence of pneumothorax post procedure and the patient had a total of 900 mL of fluid removed from the right lung and the patient improved aeration of the right lower lung area. He continues to have a large masslike density in the right upper lobe. Bronchoscopy and plasma collapse of the right upper lobe was done earlier. As such, we have transbronchial biopsies and pleural fluid samples looking for any underlying malignancy. He is extremely emaciated and cachectic. He was seen also by oncology. Patient was reevaluated today on 02/17/22, patient continues to cough and wheeze continues to have shortness of breath with any activity. He is on 6 L nasal cannula, and he seems to be in mild respiratory distress. Cytology is pending from his pleural effusion and pathology is pending from his bronchoscopy and transbronchial biopsy done by Dr. Odonnell few days ago. Patient is on bronchodilators, he is on oxygen, and overall clinical picture does not look very promising. The pleural effusion obviously is exudative in nature, and I believe it is malignant unless for otherwise. Patient is on bronchodilators, DuoNeb, he is also on antibiotics empirically, and I will add methylprednisolone for this patient. Reevaluated today on 02/18/2022, patient remains about the same, slight improvement in his coughing and wheezing after adding Solu-Medrol yesterday. Remains on 10 L high flow oxygen. O2 sats is 95-96%. He is hemodynamically stable. Does not seem to be in distress today. Again I believe the steroids significantly improved his wheezing. And he definitely more comfortable. Patho logy including cytology from the pleural effusion and from his biopsy/bronchoscopy are pending. CBC is relatively unremarkable electrolytes are normal renal profile is normal Objective - Vital Signs Vital signs: Vital Signs Temp 98.5 F 02/18/22 11:16 Pulse 102 H 02/18/22 11:16 Resp 20 02/18/22 11:16 BP 145/82 02/18/22 11:16 Pulse Ox 95 02/18/22 11:16 Intake & Output 02/17/22 02/18/22 02/18/22 18:59 06:59 18:59 Intake Total 240 100 120 Output Total 425 200 300 Balance -185 -100 -180 Intake: Intake, IV Titration 100 Amount cefTRIAXone 1 gm In 100 Sodium Chloride 0.9% 50 ml @ 100 mls/hr IVPB Q24H [facility] Rx#:[id number] Oral 240 120 Output: Urine 425 200 300 Other: Voiding Method Urinal Urinal Urinal - Exam Physical Exam: Revealed a 61-year-old white male in no distress however he is on 10 L high flow nasal cannula. Head: Atraumatic, normocephalic HEENT:[Neck is supple.] [No neck masses.] [No thyromegaly.] [No JVD.] Chest: Diminished breath sound bilaterally no rhonchi and no wheezes Cardiac Exam: [Normal S1 and S2, no S3 gallop, no murmur.] Abdomen: [Soft, nontender, no megaly, no rebound, no guarding, normal bowel sounds.] Extremities: [No clubbing, no edema, no cyanosis.] Neurological Exam: [No focal neurologic deficit.] Skin: No rashes. Musculoskeletal: No deformities noted limitation range of motion Psychiatric: Normal mood affect and normal mental status examination. - Labs CBC & Chem 7: 02/18/22 06:35 02/18/22 06:35 Labs: Abnormal Lab Results - Last 24 Hours (Table) 02/17/22 02/17/22 02/18/22 Range/Units 16:39 20:04 06:35 WBC 13.5 H (3.8-10.6) k/uL Neutrophils # 12.7 H (1.3-7.7) k/uL Lymphocytes # 0.5 L (1.0-4.8) k/uL Sodium (137-145) mmol/L Chloride (98-107) mmol/L Carbon Dioxide (22-30) mmol/L BUN (9-20) mg/dL Creatinine (0.66-1.25) mg/dL POC Glucose (mg/dL) 124 H 317 H (75-99) mg/dL Alkaline Phosphatase (38-126) U/L Albumin (3.5-5.0) g/dL 02/18/22 Range/Units 06:35 WBC (3.8-10.6) k/uL Neutrophils # (1.3-7.7) k/uL Lymphocytes # (1.0-4.8) k/uL Sodium 132 L (137-145) mmol/L Chloride 89 L (98-107) mmol/L Carbon Dioxide 39 H (22-30) mmol/L BUN 24 H (9-20) mg/dL Creatinine 0.46 L (0.66-1.25) mg/dL POC Glucose (mg/dL) (75-99) mg/dL Alkaline Phosphatase 147 H (38-126) U/L Albumin 2.9 L (3.5-5.0) g/dL Microbiology - Last 24 Hours (Table) 02/16/22 12:28 Gram Stain - Preliminary Pleural Fluid Body Fluid Culture - Preliminary 02/14/22 14:30 Blood Culture - Preliminary Blood No Growth after 72 hours 02/14/22 14:10 Blood Culture - Preliminary Blood No Growth after 72 hours Assessment and Plan Assessment: Acute hypoxic respiratory failure secondary to acute exacerbation of COPD, large right upper lobe mass considered malignant unless for otherwise, and pleural effusion considered malignant unless for otherwise. Large right upper lobe mass with mediastinal adenopathy considered malignant unless for otherwise. Right-sided pleural effusion status post thoracentesis again considered malignant unless for otherwise. Severe cachexia and weight loss secondary to underlying malignancy Status post bronchoscopy and thoracentesis Recommendation: Continue present course of bronchodilators Continue Solu-Medrol Awaiting the results of his bronchoscopy biopsies, and the results of the pleural effusion cytology. Continue oxygen and titrate accordingly Continue GI and DVT prophylaxis We'll continue to follow. Prognosis is poor Time with Patient: Less than 30
[2022-02-18 11:40] LABS: Glucose,Whole Blood 122 mg/dL (75-99)
[2022-02-18 12:28] VITALS: BMI 16.8
--- NOTE | 2022-02-18 15:45 | P.PN ---
Subjective Progress Note Date: 02/18/22 Dyspnea/hypoxemia/large right upper lobe mass/ highly suspicious for bronchogenic carcinoma Right-sided pleural effusion 61-year-old male who presents emergency department from Dr. Yeboah's office. Patient was recently diagnosed with a lung mass on the right side with possible pleural effusion from a CAT scan. Dr. Yeboah on the patient needed to be brought into the hospital possibly have this pleural effusion drained and have oncology see him and order some biopsies extremity if this is indeed cancer and what type of cancer. Patient complains of some right-sided chest pain and also some shortness of breath per patient also states she's very anxious He just found out this news this morning. Patient denies any fever chills or cough per patient denies any abdominal pain patient denies nausea vomiting diarrhea. Chest x-ray was done on outpatient basis and the patient was found to have a large right upper lobe mass. Following that, the patient was sent to [facility] for a CAT scan of the chest that was done on 02/08/2022. The patient was found to have a heterogeneous enhancing mass and associated with lobar collapse involving the entirety of the right upper lobe measuring 7.8 x 6.7 cm in size and some postobstructive changes in the right upper lobe. There was also the bronchial involvement in the right mainstem bronchus. There were parenchymal opacities within the superior segment of the right lower lobe posteriorly measuring 4.8 x 2.2 cm in size, left lower lobe measuring 1.9 x 1.7 cm in size and 1.9 x 1.2 cm in size And a small right-sided pleural effusion as well as a small left-sided pleural effusion there was also evidence of a large bilateral supraclavicular lymph node measuring up to 1.1 cm in size. There was a large subcarinal lymph node measuring 1.5 cm in size. There was a right perihilar soft tissue attenuation difficult differentiate between adenopathy and a mass. Mildly large and father also seen in the para-aortic, AP window and left hilar areas. The patient does not use any pulmonary medications or inhalers did not have any hemoptysis. He is a chronic smoker quit smoking approximately 4 months ago. His been fully vaccinated for COVID 19. 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 This patient is quite cachectic. He is having some limited shortness of breath even at rest. A repeat chest x- ray was done today and shows a right upper lobe opacity and a enlarging right- sided pleural effusion. Patient is status post Bronchoscopy, transbronchial biopsies, as well as brushing, bronchial lavage of the right upper lobe 02/16/2022 Patient is seen and evaluated sitting up in bed; continues to report dry cough; continues to have shortness of breath Vital signs are reviewed and reveal temperature 0.78, pulse 77, respiration 18 and blood pressure 1 6700 [id number] saturation of 92% Pulmonary on board; patient underwent thoracentesis with removal of 900 mL of fluid was removed from right lung Patient is status post bronchoscopy with transbronchial biopsies and fluent fluid samples Labs are reviewed and reveal WBC of 17, hemoglobin of 12.6; sodium 132, potassium 2.9; potassium has been replaced with 20 mEq IV along with 40 mEq by mouth; continue to monitor electrolytes 02/17/2022 Patient is seen this morning sleeping, but easily arousable. Patient appears exhausted. Patient reports to not feeling well and not sleeping. Patient is status post thoracentesis with biopsy and pulmonary following closely. Oncology following. Awaiting pathology. Highly suspicious for carcinoma. Patient continues to be short of breath and is currently maintained on 10 L HF via NC. Patient is continued on IV steroids, IV antibiotics and breathing inhalational treatments and will continue. Potassium is 3.3 today and will replace and repeat am labs. Follow up chest xray ordered for am as well. 02/18/2022 Patient is seen in follow-up this morning continues to be extremely short of breath and dyspneic with minimal exertion. Patient is maintained on 10 L high flow. Pulmonary and oncology following, patient continues on IV steroids along with breathing inhalational treatments and IV ceftriaxone and will continue. Repeat potassium after replacement is 4.3 today. Magnesium is 2.1, WBC elevated at 13.5 although most likely a component of IV steroid reaction. Awaiting pathology from biopsy that was done by pulmonary. Bronchial washings currently pending as well. Patient is extremely weak and fatigued and not sleeping well at all. Patient also not eating much and speech therapy was consulted recommending possible modified barium swallow although respiratory status is currently unstable and will await and further evaluate each day. Encouraged oral intake. Patient reports to no appetite and does not want to eat. Patient denies chest pain or palpitations. Patient is afebrile. Review of systems: Constitutional: reports of fatigue, no reports of fever, or chills Cardiovascular: No reports of chest pain or palpitations Respiratory: reports of continued shortness of breath and cough, patient reports mild improvement status post thoracentesis GI: No reports of nausea, vomiting, or diarrhea : No reports of dysuria or retention Neurovascular: reports of generalized weakness All medications have been reviewed Active Medications Albuterol/Ipratropium (Ipratropium-Albuterol 3 Ml Neb) 3 ml INHALATION RT-TID [facility] Last Admin: 02/18/22 08:17 Dose: 3 ml Documented by: Albuterol/Ipratropium (Ipratropium-Albuterol 3 Ml Neb) 3 ml INHALATION RT-Q4H PRN PRN Reason: Shortness Of Breath Or Wheezing Alprazolam (Alprazolam 0.25 Mg Tab) 0.25 mg PO QID PRN PRN Reason: Anxiety Last Admin: 02/18/22 08:56 Dose: 0.25 mg Documented by: Amlodipine Besylate (Amlodipine 10 Mg Tab) 10 mg PO DAILY [facility] Last Admin: 02/18/22 08:56 Dose: 10 mg Documented by: Atorvastatin Calcium (Atorvastatin 40 Mg Tab) 40 mg PO HS [facility] Last Admin: 02/17/22 20:41 Dose: 40 mg Documented by: Benzonatate (Benzonatate 100 Mg Cap) 200 mg PO TID [facility] Last Admin: 02/18/22 08:56 Dose: 200 mg Documented by: Guaifenesin (Guaifenesin Syrup 100mg/5ml 200 Mg/10 Ml Cup) 200 mg PO TID PRN PRN Reason: Cough Last Admin: 02/18/22 04:07 Dose: 200 mg Documented by: Guaifenesin/Codeine Phosphate (Guaifenesin-Coden 100-10mg/5ml 10 Ml Cup) 10 ml PO Q6HR PRN PRN Reason: Cough Last Admin: 02/16/22 17:26 Dose: 10 ml Documented by: Hydrochlorothiazide (Hydrochlorothiazide 50 Mg Tab) 50 mg PO DAILY [facility] Last Admin: 02/18/22 08:56 Dose: 50 mg Documented by: Ceftriaxone Sodium 1 gm/ (Sodium Chloride) 50 mls @ 100 mls/hr IVPB Q24H [facility]; Protocol Last Admin: 02/17/22 20:41 Dose: 100 mls/hr Documented by: Insulin Aspart (Insulin Aspart (Novolog) 100 Unit/Ml Vial) 0 unit SQ ACHS [facility]; Protocol Last Admin: 02/18/22 06:25 Dose: Not Given Documented by: Methylprednisolone Sodium Succinate (Methylprednisolone Sod Succi 125 Mg/2 Ml Vial) 60 mg IV Q6HR [facility] Last Admin: 02/18/22 06:24 Dose: 60 mg Documented by: Montelukast Sodium (Montelukast 10 Mg Tab) 10 mg PO DAILY [facility] Last Admin: 02/18/22 08:56 Dose: 10 mg Documented by: Morphine Sulfate (Morphine Sulfate 2 Mg/Ml Syringe) 2 mg IVP Q4HR PRN PRN Reason: Pain/Discomfort Last Admin: 02/18/22 04:06 Dose: 2 mg Documented by: Scopolamine (Scopolamine 1.5mg/72hr Patch) 1 patch TRANSDERM Q72H [facility] Last Admin: 02/16/22 18:48 Dose: 1 patch Documented by: PHYSICAL EXAMINATION: GENERAL: The patient is currently asleep, but arousable, alert and oriented 3, Well developed, well nourished. Obese. HEENT: Pupils are round and reacting to light. EOMI. no scleral icterus. No conjunctival pallor. Normocephalic, atraumatic. No pharyngeal erythema. No thyromegaly. CARDIOVASCULAR: S1 and S2 muffled PULMONARY: diminished breath sounds bilaterally more so on the right with scattered rhonchi and crackles noted. ABDOMEN: soft. thin, non-tender on exam. non-distended, normoactive bowel sounds. No palpable organomegaly. MUSCULOSKELETAL: No joint swelling or deformity. EXTREMITIES: No cyanosis, clubbing, or pedal edema. NEUROLOGICAL: No gross neurological deficits noted. Diffuse weakness SKIN: No rashes. Assessment: - Dyspnea/hypoxemia/large right upper lobe mass/ highly suspicious for bronchogenic carcinoma: evaluation reveals large mass causing collapse of the entire right upper lobe along with other possibilities in right and left lower lobe; mediastinotomy lymphadenopathies present along with ill-defined lesion at level of T2 and L3 vertebral body likely metastatic disease; it is endobronchial extension causing obstruction of right mainstem bronchus, pulmonary and oncology following and awaiting pathology from biopsy -Right-sided pleural effusion; status post thoracentesis with approx 900cc removed and sent for analysis which is pending at this time -COPD; not in exacerbation; continue with bronchodilator nebulizer treatment 3 times a day and when necessary; Singulair 10 mg daily -Hyperlipidemia -Hypertension -DVT prophylaxis; SCDs only -GI prophylaxis Plan: Recommend to continue with breathing inhalational treatments and IV steroids. Patient is being followed by pulmonary and oncology. Patient continues on IV cef triaxone. Patient requiring more oxygen and currently on 10L HF and requiring more. Awaiting pathology report and fluid analysis from bronch and thoracentesis. Patient continues with poor oral intake and speech therapy following recommend modified barium swallow study although patient is currently on stable respiratory robbins and will await and continue to assess daily. Patient is extremely weak and refusing to get up out of the bed at this time. PT to evaluate the patient. Will repeat am labs and monitor closely. Prognosis remains extremely poor and quite guarded. The impression and plan of care has been dictated by Mary Zuñiga, nurse practitioner as directed. MD Noe I have performed a history and examination and MDM of this patient, discussed the same with the dictator, and agree with the dictator's assessment and plan as written ,documented as a scribe. Based on total visit time, I have performed more than 50% of the visit. Objective - Vital Signs Vital signs: Vital Signs Temp 97.4 F L 02/18/22 08:54 Pulse 105 H 02/18/22 08:54 Resp 16 02/18/22 08:54 BP 171/90 02/18/22 08:54 Pulse Ox 96 02/18/22 08:54 Intake & Output 02/17/22 02/18/22 02/18/22 18:59 06:59 18:59 Intake Total 240 100 Output Total 425 200 Balance -185 -100 Intake: Intake, IV Titration 100 Amount cefTRIAXone 1 gm In 100 Sodium Chloride 0.9% 50 ml @ 100 mls/hr IVPB Q24H [facility] Rx#:[id number] Oral 240 Output: Urine 425 200 Other: Voiding Method Urinal Urinal Urinal - Labs CBC & Chem 7: 02/18/22 06:35 02/18/22 06:35 Labs: Abnormal Lab Results - Last 24 Hours (Table) 02/17/22 02/17/22 02/18/22 Range/Units 16:39 20:04 06:35 WBC 13.5 H (3.8-10.6) k/uL Neutrophils # 12.7 H (1.3-7.7) k/uL Lymphocytes # 0.5 L (1.0-4.8) k/uL Sodium (137-145) mmol/L Chloride (98-107) mmol/L Carbon Dioxide (22-30) mmol/L BUN (9-20) mg/dL Creatinine (0.66-1.25) mg/dL POC Glucose (mg/dL) 124 H 317 H (75-99) mg/dL Alkaline Phosphatase (38-126) U/L Albumin (3.5-5.0) g/dL 02/18/22 Range/Units 06:35 WBC (3.8-10.6) k/uL Neutrophils # (1.3-7.7) k/uL Lymphocytes # (1.0-4.8) k/uL Sodium 132 L (137-145) mmol/L Chloride 89 L (98-107) mmol/L Carbon Dioxide 39 H (22-30) mmol/L BUN 24 H (9-20) mg/dL Creatinine 0.46 L (0.66-1.25) mg/dL POC Glucose (mg/dL) (75-99) mg/dL Alkaline Phosphatase 147 H (38-126) U/L Albumin 2.9 L (3.5-5.0) g/dL Microbiology - Last 24 Hours (Table) 02/14/22 14:30 Blood Culture - Preliminary Blood No Growth after 72 hours 02/14/22 14:10 Blood Culture - Preliminary Blood No Growth after 72 hours 02/16/22 12:28 Gram Stain - Preliminary Pleural Fluid Body Fluid Culture - Preliminary
[2022-02-18 16:25] LABS: Glucose,Whole Blood 158 mg/dL (75-99)
[2022-02-18 19:49] LABS: Glucose,Whole Blood 152 mg/dL (75-99)
[2022-02-18] MEDS: ATORVASTATIN 40 MG TAB PO SCH (19:55)
[2022-02-19] MEDS: methylPREDNISolone SOD SUCCI 125 MG/2 ML VIAL IV SCH ×5 (00:40→23:00)
[2022-02-19 06:00] LABS: Glucose,Whole Blood 176 mg/dL (75-99)
[2022-02-19] MEDS: INSULIN ASPART (NovoLOG) 100 UNIT/ML VIAL SQ SCH ×4 (06:20→19:52)
--- NOTE | 2022-02-19 06:30 | MR ---
EXAMINATION TYPE: MR brain wo/w con DATE OF EXAM: 02/18/2022 COMPARISON: NONE HISTORY: Lung mass suspected cancer rule out brain mets TECHNIQUE: Multiplanar, multisequence images of the brain and brainstem is performed without and with IV contras t, utilizing 5 mL intravenous Gadavist . FINDINGS: Exam noted suboptimal as fast sequence is performed because patient unable to lie flat and hypoxia. This is performed using thicker cuts limiting evaluation for smaller metastatic lesions Diff usion weighted images demonstrate small foci of slight increased signal on diffusion-weighted images with diminished signal on ADC mapping in the deep left parietal lobe reference axial image 184 series 403 that show punctate T2 hyperintensity on FLAIR images. Findings consistent with evolving acute/s ubacute lacunar infarcts. There is mild ventricular and sulcal prominence. Midline structures demonstrate normal morphology. The craniocervical junction appears within normal limits. Post contrast images demonstrate no abnormal enhancement. The dural venous sinuses appear pa tent. The visualized sinuses are clear and the globes are intact. IMPRESSION: 1. Small foci of evolving acute/early subacute lacunar infarcts in the deep left parietal lobe. 2. Suboptimal study without enhancing masses identified to suggest metastatic disease to the brain.
[2022-02-19] MEDS: BENZONATATE 100 MG CAP PO SCH ×3 (08:37→19:51)
[2022-02-19] MEDS: MONTELUKAST 10 MG TAB PO SCH (08:37)
[2022-02-19] MEDS: MORPHINE SULFATE 2 MG/ML SYRINGE IVP PRN ×2 (08:37→22:59)
[2022-02-19] MEDS: amLODIPine 10 MG TAB PO SCH (08:37)
[2022-02-19] MEDS: IPRATROPIUM-ALBUTEROL 3 ML NEB INHALATION SCH ×3 (08:47→20:58)
--- NOTE | 2022-02-19 09:54 | P.PN ---
Subjective Progress Note Date: 02/19/22 Principal diagnosis: Acute hypoxic respiratory failure, secondary to acute exacerbation of COPD and strong suspicion of bronchogenic carcinoma involving her right upper lobe with m ediastinal adenopathy and pleural effusion The patient is seen today 02/19/2022 in follow-up on the selective care unit. He is currently sitting up in bed. Awake and alert in no acute distress. He is on 8 L high flow nasal cannula to maintain O2 saturations 93%. States his breathing is about the same today compared to yesterday. He's been afebrile. Hemodynamically stable. He is quite frail and cachectic. MRI of the brain revealed a small foci of evolving acute/early subacute lacunar infarcts in the deep left parietal lobe. Suboptimal study without enhancing masses identified to suggest metastatic disease to the brain. Bronchoscopy lavage from 02/14/2022 was positive for non-small cell carcinoma, right upper lung transbronchial biopsy results are pending. The patient had also undergone a right-sided thoracentesis on 02/16/2022 with 900 ML's of turbid colored fluid removed. Ex udative in nature with the total protein of 3.6 and LDH of 412. No evidence of pneumothorax post procedure. He is continued on DuoNeb inhalations, IV Solu- Medrol, antibiotics in the form of ceftriaxone. Blood cultures revealed no growth. Blood sugar 176. Objective - Vital Signs Vital signs: Vital Signs Temp 98 F 02/19/22 08:39 Pulse 102 H 02/19/22 08:39 Resp 18 02/19/22 08:39 BP 158/93 02/19/22 08:39 Pulse Ox 93 L 02/19/22 08:39 Intake & Output 02/18/22 02/19/22 02/19/22 18:59 06:59 18:59 Intake Total 240 100 180 Output Total 700 800 Balance -460 -700 180 Weight 50.2 kg Intake: Intake, IV Titration 100 Amount cefTRIAXone 1 gm In 100 Sodium Chloride 0.9% 50 ml @ 100 mls/hr IVPB Q24H [facility] Rx#:[id number] Oral 240 180 Output: Urine 700 800 Other: Voiding Method Urinal Urinal # Voids 1 - Exam This is a pleasant 61-year-old male patient, he is quite cachectic and emaciat ed. He is a mild degree of respiratory distress. On 8 L high flow nasal cannula. Head exam was generally normal. There was no scleral icterus or corneal arcus. Mucous membranes were moist. Neck was supple and without jugular venous distension, thyromegaly, or carotid bruits. Carotids were easily palpable bilaterally. There was no adenopathy. Lungs are diminished on the right lung base compared to left. Scattered rhonchi and scattered external wheeze. Cardiac exam revealed the PMI to be normally situated and sized. The rhythm was regular and no extrasystoles were noted during several minutes of auscultation. The first and second heart sounds were normal and physiologic splitting of the second heart sound was noted. There were no murmurs, rubs, clicks, or gallops. Abdominal exam revealed normal bowel sounds. The abdomen was soft, non-tender, and without masses, organomegaly, or appreciable enlargement of the abdominal aorta. Examination of the extremities revealed easily palpable radial, femoral and pedal pulses. There was no cyanosis, clubbing or edema. Examination of the skin revealed no evidence of significant rashes, suspicious appearing nevi or other concerning lesions. Neurologically, the patient is awake and alert and the patient does not have any focal neurological deficit. Cranial nerves are essentially intact. - Labs CBC & Chem 7: 02/18/22 06:35 02/18/22 06:35 Labs: Abnormal Lab Results - Last 24 Hours (Table) 02/18/22 02/18/22 02/18/22 Range/Units 11:38 16:23 19:46 POC Glucose (mg/dL) 122 H 158 H 152 H (75-99) mg/dL 02/19/22 Range/Units 05:59 POC Glucose (mg/dL) 176 H (75-99) mg/dL Microbiology - Last 24 Hours (Table) 02/14/22 14:30 Blood Culture - Preliminary Blood No Growth after 96 hours 02/14/22 14:10 Blood Culture - Preliminary Blood No Growth after 96 hours 02/16/22 12:28 Gram Stain - Preliminary Pleural Fluid Body Fluid Culture - Preliminary Assessment and Plan Assessment: 1 Large right upper lobe mass measuring 7.9 x 6.7 cm in size. 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 Findings are highly suspicious for bronchogenic carcinoma. Bronchoscopy lavage from 02/14/2022 is positive for non-small cell carcinoma. Transbronchial biopsies are pending. He did undergo a right-sided thoracentesis on 02/16/2022 with 900 ML's of exudative fluid removed. Currently requiring 8 L high flow nasal cannula. 2 Acute hypoxemic respiratory failure secondary to above 3 COPD 4 Right-sided pleural effusion, post thoracentesis with a total of 900 mL of pleural fluid being aspirated 5 Severe cachexia and weight loss with poor functional performance 6 Small foci of evolving acute/early subacute lacunar infarcts in the deep left parietal lobe. Suboptimal study without enhancing masses to suggest metastatic disease Plan: The patient was seen and evaluated Currently on 8 L high flow nasal cannula Titrate down the FiO2 as tolerated MRI of the brain reviewed Plan is for outpatient PET scan Overall prognosis is quite poor We will continue to follow I have personally seen and examined the patient, performed the documentation and the assessment and plan as written. Number of minutes spent on the visit: 10.
--- NOTE | 2022-02-19 11:45 | US ---
EXAMINATION TYPE: US carotid duplex BILAT DATE OF EXAM: 02/19/2022 COMPARISON: NONE CLINICAL HISTORY: CVA. CVA EXAM MEASUREMENTS: RIGHT: Peak Systolic Velocity (PSV) cm/sec ----- Right CCA: 116 ----- Right ICA: 103 ----- Right ECA: 125 ICA/CCA ratio: .88 RIGHT: End Diastole cm/sec ----- Right CCA: 22.1 ----- Right ICA: 24.7 ----- Right ECA: 24.0 LEFT: Peak Systolic Velocity (PSV) cm/sec ----- Left CCA: 94.2 ----- Left ICA: 123 ----- Left ECA: 123 ICA/CCA ratio: 1.3 LEFT: End Diastole cm/sec ----- Left CCA: 16.2 ----- Left ICA: 19.5 ----- Left ECA: 22.7 VERTEBRALS (direction of flow): Right Vertebral: Antegrade Left Vertebral: Antegrade Rhythm: Normal Note is made of atheromatous plaquing greater on the left. No significant stenosis seen IMPRESSION: 1. Atheromatous plaquing noted on the left approaching moderate narrowing of nearly 50%. Correlate wi th the patient's symptoms. Criteria for Assigning % of Stenosis / Diameter reduction (Estimation based on the indirect measurements of the internal carotid artery velocities (ICA PSV). 1. Normal (no stenosis)=ICA PSV < 125 cm/s: ratio < 2.0: ICA EDV<40 cm/s. 2. Less than 50% stenosis=ICA PSV < 125 cm/s: ratio < 2.0: ICA EDV<40 cm/s. 3. 50 to 69% stenosis=ICA PSV of 125 to 230 cm/s: ration 2.0 ? 4.0: ICA EDV 40-100 cm/s. 4. Greater than 70% stenosis to near occlusion= ICA PSV > 230 cm/s: ratio > 4.0: ICA EDV > 100 cm/s. 5. Near occlusion= ICA PSV velocities may be low or undetectable: variable ratio and ICA EDV. 6. Total occlusion=unable to detect flow.
[2022-02-19 11:48] LABS: Glucose,Whole Blood 116 mg/dL (75-99)
--- NOTE | 2022-02-19 12:02 | P.CNNES ---
History of Present Illness Consult date: 02/19/22 Requesting physician: Mary Zuñiga Reason for Consult: mri brain shows acute lacunar infarcts History of Present Illness: Patient is a 61-year-old male came to the hospital initially on 02/14/2022 for shortness of breath and difficulty breathing. Patient was recently diagnosed with a lung mass on the right side with pleural effusion. He recently had undergone outpatient computed tomography scan of the chest on 02/08/2022, which revealed right lung mass with pleural effusion. Patient was brought to the hospital for thoracentesis and for oncology evaluation and order some biopsies. Patient tells me that he has been having difficulty breathing going on for last 3-4 months getting worse. He also had weight loss of 30 pounds in the last 3-4 months. Patient has smoked 1 pack per day for over 40 years. He denies diabetes, does have hypertension. Denies any alcohol use. Patient had an MRI of the brain with and without contrast performed for surveillance, and revealed small foci of evolving acute/early subacute lacunar infarct in the deep left parietal lobe. Suboptimal study without enhancing masses identified to suggest metastatic disease to the brain. I personally reviewed MRI of the brain and agree with the findings. Patient denies any slurred speech, facial droop, any visual symptoms or headache. When he coughs a lot, does get some sinus headache. He states his balance is fair. Patient had a carotid Doppler performed on 04/26/2020, which revealed mild degree of grayscale atheromatous plaquing with no sonographically evident hemodynamically significant stenosis within either visualized carotid arterial system. Antegrade flow in both vertebral arteries. Patient's blood glucose had been running high. Patient's home medications include aspirin 325 mg, Lipitor 40 mg, Zithromax, amlodipine 10 mg, hydrochlorothiazide, prednisone, albuterol. Patient states that he has been taking aspirin 81 mg daily for last 1 year, as his platelets were slightly up on 02/14/2022, his dose of aspirin was increased to 325 mg by his primary physician. Patient at present lives with his significant other. He does not use any assistive device. Review of Systems Shortness of breath, cough, weight loss. Generalized weakness. All other 14 point of review systems reviewed unremarkable except as per HPI. Past Medical History Past Medical History: No Reported History Additional Past Medical History / Comment(s): Lung mass History of Any Multi-Drug Resistant Organisms: None Reported Past Surgical History: Orthopedic Surgery Additional Past Surgical History / Comment(s): right knee surgery, left eye cataract Past Psychological History: No Psychological Hx Reported Smoking Status: Former smoker Past Alcohol Use History: Occasional Past Drug Use History: None Reported Medications and Allergies Home Medications Medication Instructions Recorded Confirmed Type Albuterol Sulfate [Ventolin HFA] 1 - 2 puff INHALATION RT-Q4H PRN 02/14/22 02/14/22 History Aspirin EC [Ecotrin] 325 mg PO DAILY 02/14/22 02/14/22 History Atorvastatin [Lipitor] 40 mg PO HS 02/14/22 02/14/22 History Azithromycin [Zithromax Z-pack (6 See Taper PO DAILY 02/14/22 02/14/22 History tabs)] Montelukast [Singulair] 10 mg PO DAILY 02/14/22 02/14/22 History Promethazine/Dextromethorphan 5 ml PO Q4H PRN 02/14/22 02/14/22 History [Promethazine-Dm Syrup] amLODIPine [Norvasc] 10 mg PO DAILY 02/14/22 02/14/22 History hydroCHLOROthiazide [Hydrodiuril] 50 mg PO DAILY 02/14/22 02/14/22 History predniSONE See Taper PO DAILY 02/14/22 02/14/22 History Allergies Allergy/AdvReac Type Severity Reaction Status Date / Time No Known Allergies Allergy Verified 02/14/22 15:27 Physical Examination - Vital Signs Vital Signs: Vital Signs Temp Pulse Pulse Pulse Resp BP Pulse Ox 02/19/22 08:39 98 F 102 H 18 158/93 93 L 02/19/22 04:00 97.8 F 97 18 174/89 93 L 02/19/22 02:00 88 18 02/18/22 23:38 97.6 F 98 20 171/84 98 02/18/22 20:05 95 02/18/22 19:48 98.0 F 106 H 24 169/81 96 02/18/22 16:50 97.6 F 104 H 19 162/86 95 02/18/22 16:46 106 H 02/18/22 16:37 100 02/18/22 11:16 98.5 F 102 H 20 145/82 95 02/18/22 11:11 98.1 F 103 H 17 160/85 96 02/18/22 10:24 99 Intake and Output 02/18/22 02/19/22 02/19/22 22:59 06:59 14:59 Intake Total 120 100 180 Output Total 800 Balance 120 -700 180 Intake: Intake, IV Titration 100 Amount cefTRIAXone 1 gm In 100 Sodium Chloride 0.9% 50 ml @ 100 mls/hr IVPB Q24H [facility] Rx#:[id number] Oral 120 180 Output: Urine 800 Other: Voiding Method Urinal Urinal # Voids 1 Patient is a late middle aged male, appears somewhat cachectic, slight to moderate difficulty breathing, using accessory respiratory muscles. Patient is alert awake oriented to time place and person. Speech and language functions are normal. Attention, concentration and fund of knowledge is adequate. No aphasia or dysarthria. On cranial examination, pupils are equal, round and reacting to light, visual soares are full on confrontation, with no neglect on double simultaneous duration. His extraocular muscles are intact with no nystagmus. Face has very slight right flattening of the naso-labial fold. His tongue protrudes to the midline. Palatal elevation and sensation normal, hearing and shoulder shrug normal, facial sensation normal. Shoulder shrug normal. On muscle strength testing, there is mild left pronation but no drift. His muscle strength is normal in arms and legs distally and proximally. Deep tendon reflexes are symmetric, 2 at the biceps, 1+ brachioradialis, 2 at the knees 2+ ankles and plantars downgoing bilaterally. Sensory to touch is equal with no neglect. Cerebellar function showed no ataxia for [id number] testing. No dysdiadochokinesia. Tone and bulk of muscles normal. Patient does appear somewhat cachectic. Gait not checked. On general examination, there is no carotid bruit or murmur, S1-S2 audible. Abdomen is soft nontender. Bowel sounds present. No organomegaly. Chest has decreased breathing sounds on the right as compared to left. Peripheral pulses are present. No edema. Patient does have clubbing of the fingers. Results - Laboratory Findings CBC and BMP: 02/18/22 06:35 02/18/22 06:35 Abnormal Lab Findings: Abnormal Labs 02/14/22 02/14/22 02/14/22 11:44 11:44 11:44 WBC 17.9 H RBC Hgb Plt Count 478 H Neutrophils # 15.1 H Lymphocytes # Monocytes # 1.3 H Sodium 132 L Potassium Chloride 93 L Carbon Dioxide BUN 24 H Creatinine 0.62 L Glucose 112 H POC Glucose (mg/dL) Alkaline Phosphatase 142 H Troponin I 0.074 H* Albumin Procalcitonin 02/15/22 02/15/22 02/15/22 12:32 12:32 12:32 WBC 18.5 H RBC Hgb Plt Count Neutrophils # 16.3 H Lymphocytes # Monocytes # Sodium 133 L Potassium 3.4 L Chloride 95 L Carbon Dioxide BUN Creatinine 0.48 L Glucose 109 H POC Glucose (mg/dL) Alkaline Phosphatase Troponin I Albumin Procalcitonin 1.68 H 02/16/22 02/16/22 02/17/22 06:35 06:35 05:23 WBC 17.0 H RBC 4.05 L Hgb 12.6 L Plt Count Neutrophils # 14.9 H Lymphocytes # Monocytes # Sodium 132 L 134 L Potassium 2.9 L 3.3 L Chloride 93 L 89 L Carbon Dioxide 34 H 39 H BUN Creatinine 0.45 L 0.40 L Glucose 133 H POC Glucose (mg/dL) Alkaline Phosphatase Troponin I Albumin Procalcitonin 02/17/22 02/17/22 02/18/22 16:39 20:04 06:35 WBC 13.5 H RBC Hgb Plt Count Neutrophils # 12.7 H Lymphocytes # 0.5 L Monocytes # Sodium Potassium Chloride Carbon Dioxide BUN Creatinine Glucose POC Glucose (mg/dL) 124 H 317 H Alkaline Phosphatase Troponin I Albumin Procalcitonin 02/18/22 02/18/22 02/18/22 06:35 11:38 16:23 WBC RBC Hgb Plt Count Neutrophils # Lymphocytes # Monocytes # Sodium 132 L Potassium Chloride 89 L Carbon Dioxide 39 H BUN 24 H Creatinine 0.46 L Glucose POC Glucose (mg/dL) 122 H 158 H Alkaline Phosphatase 147 H Troponin I Albumin 2.9 L Procalcitonin 02/18/22 02/19/22 19:46 05:59 WBC RBC Hgb Plt Count Neutrophils # Lymphocytes # Monocytes # Sodium Potassium Chloride Carbon Dioxide BUN Creatinine Glucose POC Glucose (mg/dL) 152 H 176 H Alkaline Phosphatase Troponin I Albumin Procalcitonin Assessment and Plan Assessment: * Abnormal MRI of the brain, showing evidence of possible very small subacute left sided subcortical lacunar infarct. Patient clinically asymptomatic. This finding was incidentally noted on surveillance teressa MRI for metastatic workup. * Hypertension * Newly diagnosed lung mass with pleural effusion * Weight loss, likely due to above. Plan: * Continue aspirin 325 mg daily. Aspirin on hold, probably for paracentesis. * Carotid Doppler rule out stenosis * 2-D echo rule out any embolic source. * Fasting a.m. lipid panel, hemoglobin A1c. * May consider repeating MRI of the brain with and without contrast in 2-3 months to rule out any metastatic disease. * Telemetry monitoring. * Neurology will follow. Thank you for the consult.
--- NOTE | 2022-02-19 12:11 | P.PN ---
Subjective Progress Note Date: 02/19/22 Principal diagnosis: new lung mass Patient seen in follow-up with primary team. He has hemoptysis and cough. We reviewed imaging of brain concerning for infarcts, he states he has had CVA approx 3 years ago, has not been taking any thinners Objective - Vital Signs Vital signs: Vital Signs Temp 98 F 02/19/22 08:39 Pulse 101 H 02/19/22 11:43 Resp 18 02/19/22 08:39 BP 158/93 02/19/22 08:39 Pulse Ox 96 02/19/22 11:45 Intake & Output 02/18/22 02/19/22 02/19/22 18:59 06:59 18:59 Intake Total 240 100 180 Output Total 700 800 Balance -460 -700 180 Weight 50.2 kg Intake: Intake, IV Titration 100 Amount cefTRIAXone 1 gm In 100 Sodium Chloride 0.9% 50 ml @ 100 mls/hr IVPB Q24H [facility] Rx#:[id number] Oral 240 180 Output: Urine 700 800 Other: Voiding Method Urinal Urinal Urinal # Voids 1 - Exam - Constitutional General appearance: mild distress - EENT Eyes: EOMI, PERRLA ENT: hearing grossly normal, normal oropharynx - Neck Neck: no lymphadenopathy Thyroid: bilateral: normal size - Respiratory Respiratory: right: diminished, wheezing - Cardiovascular Tachy - Gastrointestinal General gastrointestinal: decreased bowel sounds, soft - Integumentary Integumentary: normal - Neurologic Neurologic: CNII-XII intact - Musculoskeletal Musculoskeletal: generalized weakness, strength equal bilaterally - Psychiatric Psychiatric: A&O x's 3, appropriate affect - Labs CBC & Chem 7: 02/18/22 06:35 02/18/22 06:35 Labs: Abnormal Lab Results - Last 24 Hours (Table) 02/18/22 02/18/22 02/19/22 Range/Units 16:23 19:46 05:59 POC Glucose (mg/dL) 158 H 152 H 176 H (75-99) mg/dL 02/19/22 Range/Units 11:46 POC Glucose (mg/dL) 116 H (75-99) mg/dL Microbiology - Last 24 Hours (Table) 02/14/22 14:30 Blood Culture - Preliminary Blood No Growth after 96 hours 02/14/22 14:10 Blood Culture - Preliminary Blood No Growth after 96 hours 02/16/22 12:28 Gram Stain - Preliminary Pleural Fluid Body Fluid Culture - Preliminary Assessment and Plan (1) Lung mass Narrative/Plan: 02/08/22: Right upper hilar and rul mass identified in outside CT - Status Post Brinch on Thursday02/14/22 - Status post Thoracentesis Thursday Prelim brushings consistent with NSCLCA Review of Imaging Brain with infarcts, also hx of infarcts: - Await Neuro evaluation Discussed in detail with primary team. Current Visit: Yes Status: Acute Code(s): R91.8 - OTHER NONSPECIFIC ABNORMAL FINDING OF LUNG FIELD SNOMED Code(s): 779195282 Current Visit: Yes Status: Acute Code(s): R91.8 - OTHER NONSPECIFIC ABNORMAL FINDING OF LUNG FIELD SNOMED Code(s): 525729435
[2022-02-19 16:30] LABS: Glucose,Whole Blood 186 mg/dL (75-99)
[2022-02-19] MEDS: guaiFENesin-Coden 100-10MG/5ML 10 ML CUP PO PRN (16:39)
--- NOTE | 2022-02-19 18:23 | P.PN ---
Subjective Progress Note Date: 02/19/22 Dyspnea/hypoxemia/large right upper lobe mass/ highly suspicious for bronchogenic carcinoma Right-sided pleural effusion 61-year-old male who presents emergency department from Dr. Yeboah's office. Patient was recently diagnosed with a lung mass on the right side with possible pleural effusion from a CAT scan. Dr. Yeboah on the patient needed to be brought into the hospital possibly have this pleural effusion drained and have oncology see him and order some biopsies extremity if this is indeed cancer and what type of cancer. Patient complains of some right-sided chest pain and also some shortness of breath per patient also states she's very anxious He just found out this news this morning. Patient denies any fever chills or cough per patient denies any abdominal pain patient denies nausea vomiting diarrhea. Chest x-ray was done on outpatient basis and the patient was found to have a large right upper lobe mass. Following that, the patient was sent to [facility] for a CAT scan of the chest that was done on 02/08/2022. The patient was found to have a heterogeneous enhancing mass and associated with lobar collapse involving the entirety of the right upper lobe measuring 7.8 x 6.7 cm in size and some postobstructive changes in the right upper lobe. There was also the bronchial involvement in the right mainstem bronchus. There were parenchymal opacities within the superior segment of the right lower lobe posteriorly measuring 4.8 x 2.2 cm in size, left lower lobe measuring 1.9 x 1.7 cm in size and 1.9 x 1.2 cm in size And a small right-sided pleural effusion as well as a small left-sided pleural effusion there was also evidence of a large bilateral supraclavicular lymph node measuring up to 1.1 cm in size. There was a large subcarinal lymph node measuring 1.5 cm in size. There was a right perihilar soft tissue attenuation difficult differentiate between adenopathy and a mass. Mildly large and father also seen in the para-aortic, AP window and left hilar areas. The patient does not use any pulmonary medications or inhalers did not have any hemoptysis. He is a chronic smoker quit smoking approximately 4 months ago. His been fully vaccinated for COVID 19. 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 This patient is quite cachectic. He is having some limited shortness of breath even at rest. A repeat chest x- ray was done today and shows a right upper lobe opacity and a enlarging right- sided pleural effusion. Patient is status post Bronchoscopy, transbronchial biopsies, as well as brushing, bronchial lavage of the right upper lobe 02/16/2022 Patient is seen and evaluated sitting up in bed; continues to report dry cough; continues to have shortness of breath Vital signs are reviewed and reveal temperature 0.78, pulse 77, respiration 18 and blood pressure 1 6700 [id number] saturation of 92% Pulmonary on board; patient underwent thoracentesis with removal of 900 mL of fluid was removed from right lung Patient is status post bronchoscopy with transbronchial biopsies and fluent fluid samples Labs are reviewed and reveal WBC of 17, hemoglobin of 12.6; sodium 132, potassium 2.9; potassium has been replaced with 20 mEq IV along with 40 mEq by mouth; continue to monitor electrolytes 02/17/2022 Patient is seen this morning sleeping, but easily arousable. Patient appears exhausted. Patient reports to not feeling well and not sleeping. Patient is status post thoracentesis with biopsy and pulmonary following closely. Oncology following. Awaiting pathology. Highly suspicious for carcinoma. Patient continues to be short of breath and is currently maintained on 10 L HF via NC. Patient is continued on IV steroids, IV antibiotics and breathing inhalational treatments and will continue. Potassium is 3.3 today and will replace and repeat am labs. Follow up chest xray ordered for am as well. 02/18/2022 Patient is seen in follow-up this morning continues to be extremely short of breath and dyspneic with minimal exertion. Patient is maintained on 10 L high flow. Pulmonary and oncology following, patient continues on IV steroids along with breathing inhalational treatments and IV ceftriaxone and will continue. Repeat potassium after replacement is 4.3 today. Magnesium is 2.1, WBC elevated at 13.5 although most likely a component of IV steroid reaction. Awaiting pathology from biopsy that was done by pulmonary. Bronchial washings currently pending as well. Patient is extremely weak and fatigued and not sleeping well at all. Patient also not eating much and speech therapy was consulted recommending possible modified barium swallow although respiratory status is currently unstable and will await and further evaluate each day. Encouraged oral intake. Patient reports to no appetite and does not want to eat. Patient denies chest pain or palpitations. Patient is afebrile. 02/19/2022 Patient is seen and evaluated in follow-up this morning with multiple medical consultations following. Patient underwent MRI of the brain for evaluation of metastasis and was found to have small foci of evolving acute/early subacute lacunar infarcts in the deep left parietal lobe and study was also suboptimal without enhancing mass is identified to suggest metastatic disease to the brain. Oncology is following and pathology currently pending which is cancerous, just Unaware of which type. awaiting finalized report. Neurology consulted and appreciate input and recommendations. Discussed CODE STATUS with the patient as well today. Review of systems: Constitutional: reports of fatigue, no reports of fever, or chills Cardiovascular: No reports of chest pain or palpitations Respiratory: reports of continued shortness of breath and cough GI: No reports of nausea, vomiting, or diarrhea : No reports of dysuria or retention Neurovascular: reports of generalized weakness All medications have been reviewed Active Medications Albuterol/Ipratropium (Ipratropium-Albuterol 3 Ml Neb) 3 ml INHALATION RT-TID [facility] Last Admin: 02/19/22 11:41 Dose: 3 ml Documented by: Albuterol/Ipratropium (Ipratropium-Albuterol 3 Ml Neb) 3 ml INHALATION RT-Q4H PRN PRN Reason: Shortness Of Breath Or Wheezing Alprazolam (Alprazolam 0.25 Mg Tab) 0.25 mg PO QID PRN PRN Reason: Anxiety Last Admin: 02/18/22 19:54 Dose: 0.25 mg Documented by: Amlodipine Besylate (Amlodipine 10 Mg Tab) 10 mg PO DAILY [facility] Last Admin: 02/19/22 08:37 Dose: 10 mg Documented by: Atorvastatin Calcium (Atorvastatin 40 Mg Tab) 40 mg PO HS [facility] Last Admin: 02/18/22 19:55 Dose: 40 mg Documented by: Benzonatate (Benzonatate 100 Mg Cap) 200 mg PO TID [facility] Last Admin: 02/19/22 08:37 Dose: 200 mg Documented by: Guaifenesin (Guaifenesin Syrup 100mg/5ml 200 Mg/10 Ml Cup) 200 mg PO TID PRN PRN Reason: Cough Last Admin: 02/18/22 04:07 Dose: 200 mg Documented by: Guaifenesin/Codeine Phosphate (Guaifenesin-Coden 100-10mg/5ml 10 Ml Cup) 10 ml PO Q6HR PRN PRN Reason: Cough Last Admin: 02/16/22 17:26 Dose: 10 ml Documented by: Ceftriaxone Sodium 1 gm/ (Sodium Chloride) 50 mls @ 100 mls/hr IVPB Q24H [facility]; Protocol Last Admin: 02/18/22 19:55 Dose: 100 mls/hr Documented by: Insulin Aspart (Insulin Aspart (Novolog) 100 Unit/Ml Vial) 0 unit SQ ACHS [facility]; Protocol Last Admin: 02/19/22 12:07 Dose: Not Given Documented by: Methylprednisolone Sodium Succinate (Methylprednisolone Sod Succi 125 Mg/2 Ml Vial) 60 mg IV Q6HR [facility] Last Admin: 02/19/22 12:10 Dose: 60 mg Documented by: Montelukast Sodium (Montelukast 10 Mg Tab) 10 mg PO DAILY [facility] Last Admin: 02/19/22 08:37 Dose: 10 mg Documented by: Morphine Sulfate (Morphine Sulfate 2 Mg/Ml Syringe) 2 mg IVP Q4HR PRN PRN Reason: Pain/Discomfort Last Admin: 02/19/22 08:37 Dose: 2 mg Documented by: Scopolamine (Scopolamine 1.5mg/72hr Patch) 1 patch TRANSDERM Q72H [facility] Last Admin: 02/16/22 18:48 Dose: 1 patch Documented by: PHYSICAL EXAMINATION: GENERAL: The patient is currently asleep, but arousable, alert and oriented 3, Cachectic, thin built an ill-appearing, appears much older than stated age HEENT: Pupils are round and reacting to light. EOMI. no scleral icterus. No conjunctival pallor. Normocephalic, atraumatic. No pharyngeal erythema. No thyromegaly. CARDIOVASCULAR: S1 and S2 muffled PULMONARY: diminished breath sounds bilaterally more so on the right with scattered rhonchi and crackles noted. ABDOMEN: soft. thin, non-tender on exam. non-distended, normoactive bowel sounds. No palpable organomegaly. MUSCULOSKELETAL: No joint swelling or deformity. EXTREMITIES: No cyanosis, clubbing, or pedal edema. NEUROLOGICAL: No gross neurological deficits noted. Diffuse weakness SKIN: No rashes. Assessment: - Dyspnea/hypoxemia/large right upper lobe mass/ highly suspicious for bronchogenic carcinoma: evaluation reveals large mass causing collapse of the entire right upper lobe along with other possibilities in right and left lower lobe; mediastinotomy lymphadenopathies present along with ill-defined lesion at level of T2 and L3 vertebral body likely metastatic disease; it is endobronchial extension causing obstruction of right mainstem bronchus, pulmonary and oncology following and awaiting pathology from biopsy - small foci of evolving acute/early subacute lacunar infarcts in the deep left parietal lobe as noted on MRI of the brain -Right-sided pleural effusion; status post thoracentesis with approx 900cc removed and sent for analysis which is pending at this time -COPD; not in exacerbation; continue with bronchodilator nebulizer treatment 3 times a day and when necessary; Singulair 10 mg daily -Hyperlipidemia -Hypertension -History of CVA/TIA approx 3 years ago -DVT prophylaxis; SCDs only -GI prophylaxis -no code Plan: Recommend to continue with breathing inhalational treatments and IV steroids. Patient is being followed by pulmonary and oncology. Patient continues on IV ceftriaxone. Patient currently on 8L HF. Awaiting pathology report and fluid analysis from bronch and thoracentesis. Fluid analysis thus far is negative. Patient continues with poor oral intake and speech therapy following recommend modified barium swallow study although patient is currently on stable respiratory robbins and will await and continue to assess daily. Patient is reporting that he is eating. Patient is extremely weak and refusing to get up out of the bed at this time. PT to re-evaluate the patient. Neurology consulted and pending for MRI brain findings. Discussed with oncology in detail. Will repeat am labs and monitor closely. Prognosis remains extremely poor and quite guarded. The impression and plan of care has been dictated by Mary Zuñiga, nurse practitioner as directed. MD Noe I have performed a history and examination and MDM of this patient, discussed the same with the dictator, and agree with the dictator's assessment and plan as written ,documented as a scribe. Based on total visit time, I have performed more than 50% of the visit. Objective - Vital Signs Vital signs: Vital Signs Temp 98 F 02/19/22 08:39 Pulse 102 H 02/19/22 08:39 Resp 18 02/19/22 08:39 BP 158/93 02/19/22 08:39 Pulse Ox 93 L 02/19/22 08:39 Intake & Output 02/18/22 02/19/22 02/19/22 18:59 06:59 18:59 Intake Total 240 100 180 Output Total 700 800 Balance -460 -700 180 Weight 50.2 kg Intake: Intake, IV Titration 100 Amount cefTRIAXone 1 gm In 100 Sodium Chloride 0.9% 50 ml @ 100 mls/hr IVPB Q24H [facility] Rx#:[id number] Oral 240 180 Output: Urine 700 800 Other: Voiding Method Urinal Urinal # Voids 1 - Labs CBC & Chem 7: 02/18/22 06:35 02/18/22 06:35 Labs: Abnormal Lab Results - Last 24 Hours (Table) 02/18/22 02/18/22 02/18/22 Range/Units 11:38 16:23 19:46 POC Glucose (mg/dL) 122 H 158 H 152 H (75-99) mg/dL 02/19/22 Range/Units 05:59 POC Glucose (mg/dL) 176 H (75-99) mg/dL Microbiology - Last 24 Hours (Table) 02/14/22 14:30 Blood Culture - Preliminary Blood No Growth after 96 hours 02/14/22 14:10 Blood Culture - Preliminary Blood No Growth after 96 hours 02/16/22 12:28 Gram Stain - Preliminary Pleural Fluid Body Fluid Culture - Preliminary
[2022-02-19 19:22] LABS: Glucose,Whole Blood 266 mg/dL (75-99)
[2022-02-19] MEDS: ATORVASTATIN 40 MG TAB PO SCH (19:51)
[2022-02-19] MEDS: SCOPOLAMINE 1 MG/72 HR PATCH TRANSDERM SCH (19:52)
[2022-02-19] MEDS: SODIUM CHLORIDE 0.9% 1,000 ML IV SCH (22:12)
[2022-02-19] MEDS: guaiFENesin SYRUP 100MG/5ML 200 MG/10 ML CUP PO PRN (23:20)
[2022-02-20 05:50] LABS: Glucose,Whole Blood 117 mg/dL (75-99)
[2022-02-20] MEDS: INSULIN ASPART (NovoLOG) 100 UNIT/ML VIAL SQ SCH ×4 (05:51→21:14)
[2022-02-20] MEDS: MORPHINE SULFATE 2 MG/ML SYRINGE IVP PRN ×2 (06:09→21:02)
[2022-02-20] MEDS: methylPREDNISolone SOD SUCCI 125 MG/2 ML VIAL IV SCH ×4 (06:10→23:48)
--- NOTE | 2022-02-20 06:41 | ECHOF ---
Referral Reason:CVA MEASUREMENTS -------- HEIGHT: 172.7 cm WEIGHT: 49.9 kg BP: 158/93 RVIDd: 3.1 cm (< 3.3) IVSd: 1.2 cm (0.6 - 1.1) LVIDd: 4.4 cm (3.9 - 5.3) LVPWd: 1.1 cm (0.6 - 1.1) IVSs: 1.6 cm LVIDs: 2.2 cm LVPWs: 1.2 cm LA Diam: 2.8 cm (2.7 - 3.8) Ao Diam: 3.3 cm (2.0 - 3.7) AV Cusp: 2.3 cm (1.5 - 2.6) MV EXCURSION: 21.518 mm (> 18.000) MV EF SLOPE: 125 mm/s (70 - 150) EPSS: 0.9 cm MV E Emery: 0.98 m/s MV DecT: 88 ms MV A Emery: 1.27 m/s MV E/A Ratio: 0.77 RAP: 5.00 mmHg RVSP: 48.50 mmHg FINDINGS -------- Resting tachycardia (HR>100bpm). This was a technically good study. The left ventricular size is normal. There is borderline concentric left ventricular hypertrophy. Overall left ventricular systolic function is normal with, an EF between 60 - 65 %. The right ventricle is normal in size. The left atrium is normal in size. The right atrium is normal in size. Interatrial and interventricular septum intact. There is mild aortic valve sclerosis. The mitral valve is normal. Mild tricuspid regurgitation present. There is moderate pulmonary hypertension. The right ventric ular systolic pressure, as measured by Doppler, is 48.50mmHg. The pulmonic valve is normal. The aortic root size is normal. Normal inferior vena cava with normal inspiratory collapse consistent with estimated right atrial pre ssure of 5 mmHg. There is a small, generalized pericardial effusion present. CONCLUSIONS -------- 1. The left ventricular size is normal. 2. There is borderline concentric left ventricular hypertrophy. 3. Overall left ventricular systolic function is normal with, an EF between 60 - 65 %. 4. There is mild aortic valve sclerosis. 5. Mild tricuspid regurgitation present. 6. There is moderate pulmonary hypertension. 7. The right ventricular systolic pressure, as measured by Doppler, is 48.50mmHg. 8. There is a small, generalized pericardial effusion present. MANAGER BASKETBALL: Medina Lopez RDCS
[2022-02-20 08:07] LABS: Magnesium 2.2 mg/dL (1.6-2.3)
[2022-02-20 08:08] LABS: African American GFR (CKD) >90 (>60 ml/min/1.73 sqM); Blood Urea Nitrogen 32 mg/dL (9-20); Calcium 8.5 mg/dL (8.4-10.2); Chloride 94 mmol/L (98-107); Glucose 143 mg/dL (74-99); Non-African American GFR(CKD) >90 (>60 ml/min/1.73 sqM); Potassium 4.1 mmol/L (3.5-5.1); Sodium 136 mmol/L (137-145)
[2022-02-20 08:14] LABS: Anion Gap 7 mmol/L
[2022-02-20 08:31] LABS: Carbon Dioxide 35 mmol/L (22-30)
[2022-02-20] MEDS: IPRATROPIUM-ALBUTEROL 3 ML NEB INHALATION SCH ×3 (08:36→20:51)
[2022-02-20 08:51] LABS: Basophils % (A) 0 %; Eosinophils % (A) 0 %; HCT 40.4 % (39.0-53.0); HGB 12.7 gm/dL (13.0-17.5); Lymphocytes # (A) 0.4 k/uL (1.0-4.8); Lymphocytes % (A) 2 %; MCH 30.5 pg (25.0-35.0); MCHC 31.5 g/dL (31.0-37.0); MCV 96.8 fL (80.0-100.0); Mean Platelet Volume 7.2; Monocytes # (A) 0.6 k/uL (0-1.0); Monocytes % (A) 3 %; Neutrophils # (A) 20.6 k/uL (1.3-7.7); Neutrophils % (A) 95 %; Platelet Count 287 k/uL (150-450); RBC 4.17 m/uL (4.30-5.90); RDW 15.3 % (11.5-15.5); WBC 21.6 k/uL (3.8-10.6)
[2022-02-20] MEDS: BENZONATATE 100 MG CAP PO SCH ×3 (08:51→21:02)
[2022-02-20] MEDS: MONTELUKAST 10 MG TAB PO SCH (08:51)
[2022-02-20] MEDS: amLODIPine 10 MG TAB PO SCH (08:51)
--- NOTE | 2022-02-20 10:30 | P.PN ---
Subjective 61-year-old male who presents emergency department from Dr. Yeboah's office. Patient was recently diagnosed with a lung mass on the right side with possible pleural effusion from a CAT scan. Dr. Yeboah on the patient needed to be brought into the hospital possibly have this pleural effusion drained and have oncology see him and order some biopsies extremity if this is indeed cancer and what type of cancer. Patient complains of some right-sided chest pain and also some shortness of breath per patient also states she's very anxious He just f ound out this news this morning. Patient denies any fever chills or cough per patient denies any abdominal pain patient denies nausea vomiting diarrhea. Chest x-ray was done on outpatient basis and the patient was found to have a large right upper lobe mass. Following that, the patient was sent to [facility] for a CAT scan of the chest that was done on 02/08/2022. The patient was found to have a heterogeneous enhancing mass and associated with lobar collapse involving the entirety of the right upper lobe measuring 7.8 x 6.7 cm in size and some postobstructive changes in the right upper lobe. There was also the bronchial involvement in the right mainstem bronchus. There were parenchymal opacities within the superior segment of the right lower lobe posteriorly measuring 4.8 x 2.2 cm in size, left lower lobe measuring 1.9 x 1.7 cm in size and 1.9 x 1.2 cm in size And a small right-sided pleural effusion as well as a small left-sided pleural effusion there was also evidence of a large bilateral supraclavicular lymph node measuring up to 1.1 cm in size. There was a large subcarinal lymph node measuring 1.5 cm in size. There was a right perihilar soft tissue attenuation difficult differentiate between adenopathy and a mass. Mildly large and father also seen in the para-aortic, AP window and left hilar areas. The patient does not use any pulmonary medications or inhal ers did not have any hemoptysis. He is a chronic smoker quit smoking approximately 4 months ago. His been fully vaccinated for COVID 19. 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 This patient is quite cachectic. He is having some limited shortness of breath even at rest. A repeat chest x- ray was done today and shows a right upper lobe opacity and a enlarging right- sided pleural effusion. Patient is status post Bronchoscopy, transbronchial biopsies, as well as brushing, bronchial lavage of the right upper lobe 02/16/2022 Patient is seen and evaluated sitting up in bed; continues to report dry cough; continues to have shortness of breath Vital signs are reviewed and reveal temperature 0.78, pulse 77, respiration 18 and blood pressure 1 6700 [id number] saturation of 92% Pulmonary on board; patient underwent thoracentesis with removal of 900 mL of fluid was removed from right lung Patient is status post bronchoscopy with transbronchial biopsies and fluent fluid samples Labs are reviewed and reveal WBC of 17, hemoglobin of 12.6; sodium 132, potassium 2.9; potassium has been replaced with 20 mEq IV along with 40 mEq by mouth; continue to monitor electrolytes 02/17/2022 Patient is seen this morning sleeping, but easily arousable. Patient appears exhausted. Patient reports to not feeling well and not sleeping. Patient is status post thoracentesis with biopsy and pulmonary following closely. Oncology following. Awaiting pathology. Highly suspicious for carcinoma. Patient continues to be short of breath and is currently maintained on 10 L HF via NC. Patient is continued on IV steroids, IV antibiotics and breathing inhalational treatments and will continue. Potassium is 3.3 today and will replace and repeat am labs. Follow up chest xray ordered for am as well. 02/18/2022 Patient is seen in follow-up this morning continues to be extremely short of breath and dyspneic with minimal exertion. Patient is maintained on 10 L high flow. Pulmonary and oncology following, patient continues on IV steroids along with breathing inhalational treatments and IV ceftriaxone and will continue. Repeat potassium after replacement is 4.3 today. Magnesium is 2.1, WBC elevated at 13.5 although most likely a component of IV steroid reaction. Awaiting pathology from biopsy that was done by pulmonary. Bronchial washings currently pending as well. Patient is extremely weak and fatigued and not sleeping well at all. Patient also not eating much and speech therapy was consulted recommending possible modified barium swallow although respiratory status is currently unstable and will await and further evaluate each day. Encouraged oral intake. Patient reports to no appetite and does not want to eat. Patient denies chest pain or palpitations. Patient is afebrile. 02/19/2022 Patient is seen and evaluated in follow-up this morning with multiple medical co nsultations following. Patient underwent MRI of the brain for evaluation of metastasis and was found to have small foci of evolving acute/early subacute lacunar infarcts in the deep left parietal lobe and study was also suboptimal without enhancing mass is identified to suggest metastatic disease to the brain. Oncology is following and pathology currently pending which is cancerous, just Unaware of which type. awaiting finalized report. Neurology consulted and appreciate input and recommendations. Discussed CODE STATUS with the care of the patient today subjective: resuming the care of the pt today 02/21/2012 This is a pleasant 61 years old male who presents with right upper lobe lung cancer and a mass with suspected surrounding pneumonia and acute hypoxic respiratory failure. Also he underwent thoracocentesis for his right pleural effusion with 900 mL his been taken out last Thursday. He is not on home oxygen and currently he is on 6 L/m. He is been treated with ceftriaxone, Solu-Medrol 60 mg and normal saline 75 mL/h. Oncology team on the case and he underwent staging workup including a brain MRI with finding of incidental asymptomatic left like no parietal infarct, acute/subacute, neurologist on the case and he recommended to repeat MRI of the brain in 2-3 weeks to rule out metastasis. Further workup showed ejection fraction 60-65%, left internal carotid artery stenosis of about 50%. Pulmonary team on the case as well and neurology service. Patient also very short of breath especially with talking. However he denies chest pain, it looks cachectic. He was able to eat 100% of his neck this morning but only 25% of his request. He denies any pain. Objective - Vital Signs Vital signs: Vital Signs Temp 97.6 F 02/20/22 04:00 Pulse 96 02/20/22 08:47 Resp 18 02/20/22 04:00 BP 175/94 02/20/22 04:00 Pulse Ox 94 L 02/20/22 04:00 Intake & Output 02/19/22 02/20/22 02/20/22 18:59 06:59 18:59 Intake Total 420 Output Total 350 600 Balance 70 -600 Intake: Oral 420 Output: Urine 350 600 Other: Voiding Method Urinal # Voids 300 - Exam -GENERAL: The patient is alert and oriented x3, not in any acute distress. cachectic, generally weak HEENT: Pupils are round and equally reacting to light. EOMI. No scleral icterus. No conjunctival pallor. Normocephalic, atraumatic. No pharyngeal erythema. No thyromegaly. CARDIOVASCULAR: S1 and S2 present. No murmurs, rubs, or gallops. -PULMONARY: Chest is clear to auscultation, no wheezing or crackles. Tachypnea with decreased breath sounds in the right upper abdomen. ABDOMEN: Soft, nontender, nondistended, normoactive bowel sounds. No palpable organomegaly. MUSCULOSKELETAL: No joint swelling or deformity. EXTREMITIES: No cyanosis, clubbing, or pedal edema. NEUROLOGICAL: Gross neurological examination did not reveal any focal deficits. SKIN: No rashes. no petechiae. - Labs CBC & Chem 7: 02/20/22 07:39 02/20/22 07:39 Labs: Abnormal Lab Results - Last 24 Hours (Table) 02/18/22 02/19/22 02/19/22 Range/Units 06:35 11:46 16:29 WBC (3.8-10.6) k/uL RBC (4.30-5.90) m/uL Hgb (13.0-17.5) gm/dL Neutrophils # (1.3-7.7) k/uL Lymphocytes # (1.0-4.8) k/uL Sodium (137-145) mmol/L Chloride (98-107) mmol/L Carbon Dioxide (22-30) mmol/L BUN (9-20) mg/dL Creatinine (0.66-1.25) mg/dL Glucose (74-99) mg/dL POC Glucose (mg/dL) 116 H 186 H (75-99) mg/dL Hemoglobin A1c 6.1 H (0.0-6.0) % 02/19/22 02/20/22 02/20/22 Range/Units 19:21 05:48 07:39 WBC (3.8-10.6) k/uL RBC (4.30-5.90) m/uL Hgb (13.0-17.5) gm/dL Neutrophils # (1.3-7.7) k/uL Lymphocytes # (1.0-4.8) k/uL Sodium 136 L (137-145) mmol/L Chloride 94 L (98-107) mmol/L Carbon Dioxide 35 H (22-30) mmol/L BUN 32 H (9-20) mg/dL Creatinine 0.39 L (0.66-1.25) mg/dL Glucose 143 H (74-99) mg/dL POC Glucose (mg/dL) 266 H 117 H (75-99) mg/dL Hemoglobin A1c (0.0-6.0) % 02/20/22 Range/Units 07:39 WBC 21.6 H (3.8-10.6) k/uL RBC 4.17 L (4.30-5.90) m/uL Hgb 12.7 L (13.0-17.5) gm/dL Neutrophils # 20.6 H (1.3-7.7) k/uL Lymphocytes # 0.4 L (1.0-4.8) k/uL Sodium (137-145) mmol/L Chloride (98-107) mmol/L Carbon Dioxide (22-30) mmol/L BUN (9-20) mg/dL Creatinine (0.66-1.25) mg/dL Glucose (74-99) mg/dL POC Glucose (mg/dL) (75-99) mg/dL Hemoglobin A1c (0.0-6.0) % Microbiology - Last 24 Hours (Table) 02/16/22 12:28 Gram Stain - Final Pleural Fluid Body Fluid Culture - Final 02/14/22 14:30 Blood Culture - Preliminary Blood No Growth after 120 hours 02/14/22 14:10 Blood Culture - Preliminary Blood No Growth after 120 hours Assessment and Plan Assessment: - Right upper lobe lung mass with associated pneumonia - small foci of evolving acute/early subacute lacunar infarcts in the deep left parietal lobe as noted on MRI of the brain -Right-sided pleural effusion; status post thoracentesis with approx 900cc removed -COPD; with acute exacerbation -Hyperlipidemia -Hypertension -History of CVA/TIA approx 3 years ago Plan: This is a pleasant 61 years old male who presents with lung cancer, pneumonia and hypoxia was COPD exacerbation. Continue with ceftriaxone, Solu-Medrol and oxygen therapy. Several consultants on the case including pulmonary, hematology/oncology and neurology Patient recommended to have a PET scan as an outpatient and a repeat MRI of the brain in 2-3 weeks. Continue with oxygen therapy. Labs and medication were reviewed.. Continue same treatment. Continue with symptomatic treatment. Resume home medication. Monitor lytes and vitals. DVT and GI prophylaxis. Further recommendationsas per clinical course of the patient DVT prophylaxis: Subcutaneous heparin GI Prophylaxis: Pepcid PT/OT: Pending Prognosis is guarded
[2022-02-20 11:48] LABS: Glucose,Whole Blood 272 mg/dL (75-99)
[2022-02-20] MEDS: guaiFENesin-Coden 100-10MG/5ML 10 ML CUP PO PRN ×2 (12:21→23:48)
[2022-02-20] MEDS: SODIUM CHLORIDE 0.9% 1,000 ML IV SCH (12:21)
--- NOTE | 2022-02-20 12:23 | P.PN ---
Subjective Progress Note Date: 02/20/22 Principal diagnosis: Acute hypoxic respiratory failure, secondary to acute exacerbation of COPD and strong suspicion of bronchogenic carcinoma involving her right upper lobe with m ediastinal adenopathy and pleural effusion The patient is seen today 02/19/2022 in follow-up on the selective care unit. He is currently sitting up in bed. Awake and alert in no acute distress. He is on 8 L high flow nasal cannula to maintain O2 saturations 93%. States his breathing is about the same today compared to yesterday. He's been afebrile. Hemodynamically stable. He is quite frail and cachectic. MRI of the brain revealed a small foci of evolving acute/early subacute lacunar infarcts in the deep left parietal lobe. Suboptimal study without enhancing masses identified to suggest metastatic disease to the brain. Bronchoscopy lavage from 02/14/2022 was positive for non-small cell carcinoma, right upper lung transbronchial biopsy results are pending. The patient had also undergone a right-sided thoracentesis on 02/16/2022 with 900 ML's of turbid colored fluid removed. Ex udative in nature with the total protein of 3.6 and LDH of 412. No evidence of pneumothorax post procedure. He is continued on DuoNeb inhalations, IV Solu- Medrol, antibiotics in the form of ceftriaxone. Blood cultures revealed no growth. Blood sugar 176. The patient is seen today 02/20/2022 in follow-up on the selective care unit. He is currently sitting up the bedside. Awake and alert in no acute distress. He is still dyspneic with minimal conversation. Dyspneic with exertion. He has some bilateral end expiratory wheeze. Diminished breath sounds. He is still quite frail and cachectic. Echocardiogram revealed preserved left ventricular systolic function with ejection fraction 66 5%. Carotid Dopplers revealed 50% stenosis of left carotid. He remains on normal saline at 75 ML's per hour. He is continued on DuoNeb inhalations, IV Solu-Medrol, Singulair. Antibiotics in the form of ceftriaxone. Heparin for DVT prophylaxis. Objective - Vital Signs Vital signs: Vital Signs Temp 96.9 F L 02/20/22 11:33 Pulse 106 H 02/20/22 11:33 Resp 20 02/20/22 11:33 BP 164/87 02/20/22 11:33 Pulse Ox 93 L 02/20/22 11:33 Intake & Output 02/19/22 02/20/22 02/20/22 18:59 06:59 18:59 Intake Total 420 240 Output Total 350 600 375 Balance 70 -600 -135 Weight 50.2 kg Intake: Oral 420 240 Output: Urine 350 600 375 Other: Voiding Method Urinal # Voids 300 - Exam This is a pleasant 61-year-old male patient, he is quite cachectic and emaciated. He is a mild degree of respiratory distress. On 6 L high flow nasal cannula. Head exam was generally normal. There was no scleral icterus or corneal arcus. Mucous membranes were moist. Neck was supple and without jugular venous distension, thyromegaly, or carotid bruits. Carotids were easily palpable bilaterally. There was no adenopathy. Lungs are diminished on the right lung base compared to left. Scattered rhonchi and scattered external wheeze. Cardiac exam revealed the PMI to be normally situated and sized. The rhythm was regular and no extrasystoles were noted during several minutes of auscultation. The first and second heart sounds were normal and physiologic splitting of the second heart sound was noted. There were no murmurs, rubs, clicks, or gallops. Abdominal exam revealed normal bowel sounds. The abdomen was soft, non-tender, and without masses, organomegaly, or appreciable enlargement of the abdominal aorta. Examination of the extremities revealed easily palpable radial, femoral and pedal pulses. There was no cyanosis, clubbing or edema. Examination of the skin revealed no evidence of significant rashes, suspicious appearing nevi or other concerning lesions. Neurologically, the patient is awake and alert and the patient does not have any focal neurological deficit. Cranial nerves are essentially intact. - Labs CBC & Chem 7: 02/20/22 07:39 02/20/22 07:39 Labs: Abnormal Lab Results - Last 24 Hours (Table) 02/18/22 02/19/22 02/19/22 Range/Units 06:35 16:29 19:21 WBC (3.8-10.6) k/uL RBC (4.30-5.90) m/uL Hgb (13.0-17.5) gm/dL Neutrophils # (1.3-7.7) k/uL Lymphocytes # (1.0-4.8) k/uL Sodium (137-145) mmol/L Chloride (98-107) mmol/L Carbon Dioxide (22-30) mmol/L BUN (9-20) mg/dL Creatinine (0.66-1.25) mg/dL Glucose (74-99) mg/dL POC Glucose (mg/dL) 186 H 266 H (75-99) mg/dL Hemoglobin A1c 6.1 H (0.0-6.0) % 02/20/22 02/20/22 02/20/22 Range/Units 05:48 07:39 07:39 WBC 21.6 H (3.8-10.6) k/uL RBC 4.17 L (4.30-5.90) m/uL Hgb 12.7 L (13.0-17.5) gm/dL Neutrophils # 20.6 H (1.3-7.7) k/uL Lymphocytes # 0.4 L (1.0-4.8) k/uL Sodium 136 L (137-145) mmol/L Chloride 94 L (98-107) mmol/L Carbon Dioxide 35 H (22-30) mmol/L BUN 32 H (9-20) mg/dL Creatinine 0.39 L (0.66-1.25) mg/dL Glucose 143 H (74-99) mg/dL POC Glucose (mg/dL) 117 H (75-99) mg/dL Hemoglobin A1c (0.0-6.0) % 02/20/22 Range/Units 11:46 WBC (3.8-10.6) k/uL RBC (4.30-5.90) m/uL Hgb (13.0-17.5) gm/dL Neutrophils # (1.3-7.7) k/uL Lymphocytes # (1.0-4.8) k/uL Sodium (137-145) mmol/L Chloride (98-107) mmol/L Carbon Dioxide (22-30) mmol/L BUN (9-20) mg/dL Creatinine (0.66-1.25) mg/dL Glucose (74-99) mg/dL POC Glucose (mg/dL) 272 H (75-99) mg/dL Hemoglobin A1c (0.0-6.0) % Microbiology - Last 24 Hours (Table) 02/16/22 12:28 Gram Stain - Final Pleural Fluid Body Fluid Culture - Final 02/14/22 14:30 Blood Culture - Preliminary Blood No Growth after 120 hours 02/14/22 14:10 Blood Culture - Preliminary Blood No Growth after 120 hours Assessment and Plan Assessment: 1 Large right upper lobe mass measuring 7.9 x 6.7 cm in size. 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 Findings are highly suspicious for bronchogenic carcinoma. Bronchoscopy lavage from 02/14/2022 is positive for non-small cell carcinoma. Transbronchial biopsies are pending. He did undergo a right-sided thoracentesis on 02/16/2022 with 900 ML's of exudative fluid removed. Currently requiring 6 L high flow nasal cannula. 2 Acute hypoxemic respiratory failure secondary to above 3 COPD 4 Right-sided pleural effusion, post thoracentesis with a total of 900 mL of pleural fluid being aspirated 5 Severe cachexia and weight loss with poor functional performance 6 Small foci of evolving acute/early subacute lacunar infarcts in the deep left parietal lobe. Suboptimal study without enhancing masses to suggest metastatic disease. Carotid Dopplers revealed a 50% stenosis on the left Plan: The patient was seen and evaluated Currently on 6 L high flow nasal cannula Titrate down the FiO2 as tolerated Plan is for outpatient PET scan Overall prognosis is quite poor Dr. Yeboah spoke to the patient about possible hospice The patient's son is considering an evaluation at [facility] This may happen easier from the outpatient side versus a transfer We will lead that up to the admitting team We will continue to follow I have personally seen and examined the patient, performed the documentation and the assessment and plan as written. Number of minutes spent on the visit: 10.
--- NOTE | 2022-02-20 15:00 | CDI ---
Documentation Clarification Form Date: 02/20/2022 02:45:47 PM From: Anna CarrilloButlerDIANNE summers, CCDS Admit Date: 02/14/2022 02:06:00 PM Patient Name: Jeramie Elias Visit Number: [id number] Discharge Date: ATTENTION: The Clinical Documentation Specialists (CDI) and [facility] Coding Staff appreciate your assistance in clarifying documentation. Please respond to the clarification below the line at the bottom and electronically sign. The CDI & [facility] Coding staff will review the response and follow-up if needed. Please note: Queries are made part of the Legal Health Record. If you have any questions, please contact the author of this message via ITS. Dr. Elyse Huston: Cachexia & cachectic is documented in the record beginning in the 02/14 History & Physical and in subsequent Consult Notes & Progress Notes. There is also documentation of weight loss beginning in the 02/14 Pulmonary Consult and in the 02/19 Neurology Consult: Weight loss of 30 lbs in the last 3-4 months. Based on this information and the findings below, is there an additional diagnosis that is clinically appropriate for this patient? History/Risk Factors per the 02/14 H/P: Chronic smoker, quit four months ago, Knee surgery & left eye cataract removed. Clinical Indicators: Presented to the ED on 02/14 from Pulmonary physician office for possible drainage of ight pleural effusion. Recently diagnosed with a lung mass on the right side per CT Scan, also needs biopsy to determine if the lung mass is cancerous. Had right side chest pain & some SOB, very anxious. Admit with Lung mass, Pneumonia & Dyspnea 02/18 Nutritional Assessment: Diagnosed with lung mass, pneumonia, dyspnea & COPD. Intake: Fair. Consumed 25-50%, difficulty swallowing. Weight 50.2 kg standing scale Height 5 ft 8 in BMI: 16.8, underweight, calculated ideal body weight: 70 kg. 10.7 kg weight loss w/decreased intake over 4 months. Per Nutrition Diagnosis: Inadequate oral intake, Malnutrition, moderate, chronic. Decreased caloric intake, 18% involuntary weight loss, Mild-moderate fat & muscle depletion, temporalis muscle, buccal fat pads. Treatment 02/14: Pulmonary & Oncology Consults, Blood cultures, Fungal culture, TB Culture, O2 2Lnc, IV Toradol, IV Ativan, IV Na Cl 500 mls @ 999 mls/hr qM, IV Rocephin 1,000 mg x1, IV Na Cl 1,000 mls @ 75 mls/hr q13H, IH Duoneb 3Ml TID Ensure Plus BID, chopped diet Is there an additional diagnosis that is clinically appropriate for this patient? [ ] Mild Protein-Calorie Malnutrition [ x ] Moderate Protein-Calorie Malnutrition [ ] Severe Protein-Calorie Malnutrition [ ] Other condition, please specify [ ] Unable to Determine (Template Last Revised: January 2021) MTDD
[2022-02-20 16:51] LABS: Glucose,Whole Blood 167 mg/dL (75-99)
[2022-02-20 16:54] LABS: Chol/HDL Ratio 2.71 Ratio; LDL Cholesterol,Calculated 78.2 mg/dL (0.0-131.0); VLDL Calculation 19.64 mg/dL (5.00-40.00)
[2022-02-20 20:01] LABS: Glucose,Whole Blood 89 mg/dL (75-99)
[2022-02-20] MEDS: HEPARIN SODIUM,PORCINE/PF 5,000 UNIT/0.5 ML SYRINGE SQ SCH (21:01)
[2022-02-20] MEDS: FAMOTIDINE 20 MG/2 ML VIAL IV SCH (21:01)
[2022-02-20] MEDS: ATORVASTATIN 40 MG TAB PO SCH (21:02)
[2022-02-21] MEDS: SODIUM CHLORIDE 0.9% 1,000 ML IV SCH ×2 (01:53→17:06)
[2022-02-21] MEDS: guaiFENesin SYRUP 100MG/5ML 200 MG/10 ML CUP PO PRN (03:21)
[2022-02-21 06:11] LABS: Glucose,Whole Blood 155 mg/dL (75-99)
[2022-02-21] MEDS: methylPREDNISolone SOD SUCCI 125 MG/2 ML VIAL IV SCH (06:21)
[2022-02-21] MEDS: INSULIN ASPART (NovoLOG) 100 UNIT/ML VIAL SQ SCH ×4 (06:22→21:13)
[2022-02-21] MEDS: BENZONATATE 100 MG CAP PO SCH ×3 (08:12→21:12)
[2022-02-21] MEDS: HEPARIN SODIUM,PORCINE/PF 5,000 UNIT/0.5 ML SYRINGE SQ SCH ×2 (08:13→21:12)
[2022-02-21] MEDS: amLODIPine 10 MG TAB PO SCH (08:13)
[2022-02-21] MEDS: FAMOTIDINE 20 MG/2 ML VIAL IV SCH ×2 (08:13→21:11)
[2022-02-21] MEDS: MONTELUKAST 10 MG TAB PO SCH (08:13)
[2022-02-21] MEDS: IPRATROPIUM-ALBUTEROL 3 ML NEB INHALATION SCH ×3 (08:31→20:16)
--- NOTE | 2022-02-21 11:15 | P.PN ---
Subjective Progress Note Date: 02/20/22 Patient was seen for a follow-up. Patient is laying in the bed, still with slight difficulty breathing. Appears slightly short of breath. Denies headache. No new neurological symptoms. Objective - Vital Signs Vital signs: Vital Signs Temp 96.9 F L 02/20/22 11:33 Pulse 106 H 02/20/22 11:33 Resp 20 02/20/22 11:33 BP 164/87 02/20/22 11:33 Pulse Ox 93 L 02/20/22 11:33 Intake & Output 02/19/22 02/20/22 02/20/22 18:59 06:59 18:59 Intake Total 420 240 Output Total 350 600 375 Balance 70 -600 -135 Weight 50.2 kg Intake: Oral 420 240 Output: Urine 350 600 375 Other: Voiding Method Urinal # Voids 300 - Exam Patient's examination is nonfocal. - Labs CBC & Chem 7: 02/20/22 07:39 02/20/22 07:39 Labs: Abnormal Lab Results - Last 24 Hours (Table) 02/18/22 02/19/22 02/19/22 Range/Units 06:35 16:29 19:21 WBC (3.8-10.6) k/uL RBC (4.30-5.90) m/uL Hgb (13.0-17.5) gm/dL Neutrophils # (1.3-7.7) k/uL Lymphocytes # (1.0-4.8) k/uL Sodium (137-145) mmol/L Chloride (98-107) mmol/L Carbon Dioxide (22-30) mmol/L BUN (9-20) mg/dL Creatinine (0.66-1.25) mg/dL Glucose (74-99) mg/dL POC Glucose (mg/dL) 186 H 266 H (75-99) mg/dL Hemoglobin A1c 6.1 H (0.0-6.0) % 02/20/22 02/20/22 02/20/22 Range/Units 05:48 07:39 07:39 WBC 21.6 H (3.8-10.6) k/uL RBC 4.17 L (4.30-5.90) m/uL Hgb 12.7 L (13.0-17.5) gm/dL Neutrophils # 20.6 H (1.3-7.7) k/uL Lymphocytes # 0.4 L (1.0-4.8) k/uL Sodium 136 L (137-145) mmol/L Chloride 94 L (98-107) mmol/L Carbon Dioxide 35 H (22-30) mmol/L BUN 32 H (9-20) mg/dL Creatinine 0.39 L (0.66-1.25) mg/dL Glucose 143 H (74-99) mg/dL POC Glucose (mg/dL) 117 H (75-99) mg/dL Hemoglobin A1c (0.0-6.0) % 02/20/22 Range/Units 11:46 WBC (3.8-10.6) k/uL RBC (4.30-5.90) m/uL Hgb (13.0-17.5) gm/dL Neutrophils # (1.3-7.7) k/uL Lymphocytes # (1.0-4.8) k/uL Sodium (137-145) mmol/L Chloride (98-107) mmol/L Carbon Dioxide (22-30) mmol/L BUN (9-20) mg/dL Creatinine (0.66-1.25) mg/dL Glucose (74-99) mg/dL POC Glucose (mg/dL) 272 H (75-99) mg/dL Hemoglobin A1c (0.0-6.0) % Microbiology - Last 24 Hours (Table) 02/16/22 12:28 Gram Stain - Final Pleural Fluid Body Fluid Culture - Final 02/14/22 14:30 Blood Culture - Preliminary Blood No Growth after 120 hours 02/14/22 14:10 Blood Culture - Preliminary Blood No Growth after 120 hours Assessment and Plan Assessment: * Abnormal MRI of the brain, showing evidence of possible very small subacute left sided subcortical lacunar infarct. Patient clinically asymptomatic. This finding was incidentally noted on surveillance teressa MRI for metastatic workup. * Moderate left ICA stenosis about 50%. * Hypertension * Newly diagnosed lung mass with pleural effusion * Weight loss, likely due to above. * Tobacco use Plan: * Resume aspirin 325 mg daily as early as medically cleared. Appears to be on hold at this time. * Carotid Doppler revealed atheromatous plaquing noted on the left approaching moderate narrowing nearly 50%. Antegrade flow in both vertebral arteries. * 2-D echo revealed normal left-ventricular size. Borderline concentric LVH. EF is normal 60-65%. Mild aortic valve sclerosis. Moderate pulmonary hyp ertension. Small generalized pericardial effusion. No obvious embolic source identified on the 2-D echo. * Fasting a.m. lipid panel with cholesterol 155, LDL 78, HDL 57 and triglycerides 98. Continue Lipitor 40 mg. * Hemoglobin A1c 6.1. * May consider repeating MRI of the brain with and without contrast in 2-3 months to rule out any metastatic disease. * Telemetry monitoring. * Recommend complete tobacco cessation. * Neurologically clear.
[2022-02-21 11:54] LABS: Glucose,Whole Blood 124 mg/dL (75-99)
--- NOTE | 2022-02-21 11:58 | P.PN ---
Subjective Progress Note Date: 02/21/22 Principal diagnosis: Shortness of breath The patient is seen today 02/19/2022 in follow-up on the selective care unit. He is currently sitting up in bed. Awake and alert in no acute distress. He is on 8 L high flow nasal cannula to maintain O2 saturations 93%. States his preet athing is about the same today compared to yesterday. He's been afebrile. Hemodynamically stable. He is quite frail and cachectic. MRI of the brain revealed a small foci of evolving acute/early subacute lacunar infarcts in the deep left parietal lobe. Suboptimal study without enhancing masses identified to suggest metastatic disease to the brain. Bronchoscopy lavage from 02/14/2022 was positive for non-small cell carcinoma, right upper lung transbronchial biopsy results are pending. The patient had also undergone a right-sided thoracentesis on 02/16/2022 with 900 ML's of turbid colored fluid removed. Exudative in nature with the total protein of 3.6 and LDH of 412. No evidence of pneumothorax post procedure. He is continued on DuoNeb inhalations, IV Solu- Medrol, antibiotics in the form of ceftriaxone. Blood cultures revealed no growth. Blood sugar 176. The patient is seen today 02/20/2022 in follow-up on the selective care unit. He is currently sitting up the bedside. Awake and alert in no acute distress. He is still dyspneic with minimal conversation. Dyspneic with exertion. He has some bilateral end expiratory wheeze. Diminished breath sounds. He is still quite frail and cachectic. Echocardiogram revealed preserved left ventricular systolic function with ejection fraction 66 5%. Carotid Dopplers revealed 50% stenosis of left carotid. He remains on normal saline at 75 ML's per hour. He is continued on DuoNeb inhalations, IV Solu-Medrol, Singulair. Antibiotics in the form of ceftriaxone. Heparin for DVT prophylaxis. On 02/21/2022 patient is seen in follow-up on selective care unit. He is awake and alert, he is quite short of breath with any exertion and conversation. Unable to speak in full sentences. Takes a while to recover after walking to the bathroom. He remains on 8 L of oxygen satting 88-91%. Lung sounds are diminished, with diffuse rhonchi. Patient has been afebrile. His last chest x- ray on 02/16/2022 showed persistent but improved small right basilar pleural fluid collection, chronic parenchymal and emphysematous changes and tiny left pleural effusion with decreased left lung markings. Remains afebrile. Patient's right upper lobe transbronchial biopsy results are positive for non- small cell carcinoma. Patient also had a right-sided thoracentesis on 02/16/2022 with removal of 900 mL of turbid colored fluid, however I don't see results of the pleural fluid cytology. MRI of the brain was suboptimal showing evidence of possible very small subacute left-sided subcortical lacunar infarct, without evident metastatic disease. Patient is quite short of breath, patient is still being worked up for staging of his newly diagnosed non-small cell lung carcinoma. His overall prognosis is quite poor, and Dr. Blanc spoke to the patient about hospice. However patient's son is considering obtaining a second opinion at a tertiary care facility [facility]. The patient confirmed that he wants no life support, no aggressive life-saving measures, however he wants to speak to his son, and he thinks he may consider treatment for his lung cancer. Objective - Vital Signs Vital signs: Vital Signs Temp 97.6 F 02/21/22 11:35 Pulse 94 02/21/22 11:35 Resp 20 02/21/22 11:35 BP 162/88 02/21/22 11:35 Pulse Ox 88 L 02/21/22 11:35 Intake & Output 02/20/22 02/21/22 02/21/22 18:59 06:59 18:59 Intake Total 1620 Output Total 675 500 200 Balance 945 -500 -200 Weight 50.2 kg Intake: Intake, IV Titration 900 Amount Sodium Chloride 0.9% 1, 900 000 ml @ 75 mls/hr IV . [id number] [facility] Rx#:[id number] Oral 720 Output: Urine 675 500 200 Other: # Bowel Movements 2 - Exam GENERAL EXAM: Alert, cachectic, quite short of breath, 61-year-old white male on 8 L of oxygen and the pulse ox of 88-91%, quite short of breath with any exertion including conversation comfortable in no apparent distress. HEAD: Normocephalic/atraumatic. EYES: Normal reaction of pupils, equal size. Conjunctiva pink, sclera white. NOSE: Clear with pink turbinates. THROAT: No erythema or exudates. NECK: No masses, no JVD, no thyroid enlargement, no adenopathy. CHEST: No chest wall deformity. Symmetrical expansion. LUNGS: Equal air entry with diffuse rhonchi CVS: Regular rate and rhythm, normal S1 and S2, no gallops, no murmurs, no rubs ABDOMEN: Soft, nontender. No hepatosplenomegaly, normal bowel sounds, no guarding or rigidity. EXTREMITIES: No clubbing, no edema, no cyanosis, 2+ pulses and upper and lower extremities. MUSCULOSKELETAL: Muscle strength and tone normal. SPINE: No scoliosis or deformity SKIN: No rashes CENTRAL NERVOUS SYSTEM: Alert and oriented -3. No focal deficits, tone is normal in all 4 extremities. PSYCHIATRIC: Alert and oriented -3. Appropriate affect. Intact judgment and insight. - Labs CBC & Chem 7: 02/20/22 07:39 02/20/22 07:39 Labs: Abnormal Lab Results - Last 24 Hours (Table) 02/20/22 02/20/22 02/21/22 Range/Units 11:46 16:50 06:10 POC Glucose (mg/dL) 272 H 167 H 155 H (75-99) mg/dL Microbiology - Last 24 Hours (Table) 02/14/22 14:30 Blood Culture - Final Blood No Growth after 144 hours 02/14/22 14:10 Blood Culture - Final Blood No Growth after 144 hours 02/16/22 12:28 Gram Stain - Final Pleural Fluid Body Fluid Culture - Final Assessment and Plan Plan: Assessment: #1. Large right upper lobe mass measuring 7.9 x 6.7 cm in size, transbronchial biopsies of the right upper lobe showed non-small cell carcinoma. On presentation, patient had worsening moderate right pleural effusion with adjacent atelectasis and/or consolidation, and probable extensive right hilar and right upper lobe mass with increasing patchy infiltrate in the left midlung. Patient had a right-sided thoracentesis on 02/16/2022 with removal of 900 mL of exudative fluid. In addition patient had ill-defined lucency lesion at the l evel of T2 vertebral body measuring 0.9 cm in size likely an osteolytic metastatic disease in addition to disease involving the superior aspect of the L3 vertebral body #2. Acute hypoxic respiratory failure related to the above #3. COPD #4. Right-sided pleural effusion status post right-sided thoracentesis, with removal of 900 mL of exudative pleural fluid, no cytology results available #5. Severe cachexia and weight loss with poor functional performance #6. Small foci of evolving acute/early subacute lacunar infarcts in the deep left parietal lobe. This was a suboptimal study without enhancing masses to suggest metastatic disease #7. Left carotid stenosis of 50% Plan: Continue medical treatment Prognosis is quite poor However patient is considering treatment for the lung cancer once his medical condition is optimized Continue IV steroids and empiric antibiotics Continue breathing treatments He is awaiting to speak to his son, who is considering obtaining second opinion possibly at the [facility] However patient made it clear that he is not to be intubated, no aggressive life-sustaining measures no CPR or defibrillation Continue supportive medical treatment I have personally seen and examined the patient, performed the documentation and the assessment and plan as written. Number of minutes spent on the visit: [10] Time with Patient: Less than 30
[2022-02-21] MEDS: predniSONE 20 MG TAB PO SCH (12:34)
--- NOTE | 2022-02-21 12:50 | P.PN ---
Subjective Progress Note Date: 02/20/22 Principal diagnosis: new lung mass Neurology has evaluated patient, we are awaiting his final pathology Objective - Vital Signs Vital signs: Vital Signs Temp 97.6 F 02/20/22 04:00 Pulse 96 02/20/22 08:47 Resp 18 02/20/22 04:00 BP 175/94 02/20/22 04:00 Pulse Ox 94 L 02/20/22 04:00 Intake & Output 02/19/22 02/20/22 02/20/22 18:59 06:59 18:59 Intake Total 420 240 Output Total 350 600 Balance 70 -600 240 Intake: Oral 420 240 Output: Urine 350 600 Other: Voiding Method Urinal # Voids 300 - Exam - Constitutional General appearance: mild distress - EENT Eyes: EOMI, PERRLA ENT: hearing grossly normal, normal oropharynx - Neck Neck: no lymphadenopathy Thyroid: bilateral: normal size - Respiratory Respiratory: right: diminished, wheezing - Cardiovascular Tachy - Gastrointestinal General gastrointestinal: decreased bowel sounds, soft - Integumentary Integumentary: normal - Neurologic Neurologic: CNII-XII intact - Musculoskeletal Musculoskeletal: generalized weakness, strength equal bilaterally - Psychiatric Psychiatric: A&O x's 3, appropriate affect - Labs CBC & Chem 7: 02/20/22 07:39 02/20/22 07:39 Labs: Abnormal Lab Results - Last 24 Hours (Table) 02/18/22 02/19/22 02/19/22 Range/Units 06:35 11:46 16:29 WBC (3.8-10.6) k/uL RBC (4.30-5.90) m/uL Hgb (13.0-17.5) gm/dL Neutrophils # (1.3-7.7) k/uL Lymphocytes # (1.0-4.8) k/uL Sodium (137-145) mmol/L Chloride (98-107) mmol/L Carbon Dioxide (22-30) mmol/L BUN (9-20) mg/dL Creatinine (0.66-1.25) mg/dL Glucose (74-99) mg/dL POC Glucose (mg/dL) 116 H 186 H (75-99) mg/dL Hemoglobin A1c 6.1 H (0.0-6.0) % 02/19/22 02/20/22 02/20/22 Range/Units 19:21 05:48 07:39 WBC (3.8-10.6) k/uL RBC (4.30-5.90) m/uL Hgb (13.0-17.5) gm/dL Neutrophils # (1.3-7.7) k/uL Lymphocytes # (1.0-4.8) k/uL Sodium 136 L (137-145) mmol/L Chloride 94 L (98-107) mmol/L Carbon Dioxide 35 H (22-30) mmol/L BUN 32 H (9-20) mg/dL Creatinine 0.39 L (0.66-1.25) mg/dL Glucose 143 H (74-99) mg/dL POC Glucose (mg/dL) 266 H 117 H (75-99) mg/dL Hemoglobin A1c (0.0-6.0) % 02/20/22 Range/Units 07:39 WBC 21.6 H (3.8-10.6) k/uL RBC 4.17 L (4.30-5.90) m/uL Hgb 12.7 L (13.0-17.5) gm/dL Neutrophils # 20.6 H (1.3-7.7) k/uL Lymphocytes # 0.4 L (1.0-4.8) k/uL Sodium (137-145) mmol/L Chloride (98-107) mmol/L Carbon Dioxide (22-30) mmol/L BUN (9-20) mg/dL Creatinine (0.66-1.25) mg/dL Glucose (74-99) mg/dL POC Glucose (mg/dL) (75-99) mg/dL Hemoglobin A1c (0.0-6.0) % Microbiology - Last 24 Hours (Table) 02/16/22 12:28 Gram Stain - Final Pleural Fluid Body Fluid Culture - Final 02/14/22 14:30 Blood Culture - Preliminary Blood No Growth after 120 hours 02/14/22 14:10 Blood Culture - Preliminary Blood No Growth after 120 hours Assessment and Plan (1) Lung mass Narrative/Plan: 02/08/22: Right upper hilar and rul mass identified in outside CT - Status Post Brinch on Thursday02/14/22 - Status post Thoracentesis Thursday Prelim brushings consistent with NSCLCA Review of Imaging Brain with infarcts, also hx of infarcts: - Await Neuro evaluation Discussed in detail with primary team. Current Visit: Yes Status: Acute Code(s): R91.8 - OTHER NONSPECIFIC ABNORMAL FINDING OF LUNG FIELD SNOMED Code(s): 994697096 Current Visit: Yes Status: Acute Code(s): R91.8 - OTHER NONSPECIFIC ABNORMAL FINDING OF LUNG FIELD SNOMED Code(s): 362856880
[2022-02-21] MEDS: IOPAMIDOL CONTRAST (ORAL USE) VIAL PO PRN ×2 (14:24→15:33)
[2022-02-21 16:32] LABS: Glucose,Whole Blood 172 mg/dL (75-99)
--- NOTE | 2022-02-21 16:49 | P.PN ---
Subjective 61-year-old male who presents emergency department from Dr. Yeboah's office. Patient was recently diagnosed with a lung mass on the right side with possible pleural effusion from a CAT scan. Dr. Yeboah on the patient needed to be brought into the hospital possibly have this pleural effusion drained and have oncology see him and order some biopsies extremity if this is indeed cancer and what type of cancer. Patient complains of some right-sided chest pain and also some shortness of breath per patient also states she's very anxious He just f ound out this news this morning. Patient denies any fever chills or cough per patient denies any abdominal pain patient denies nausea vomiting diarrhea. Chest x-ray was done on outpatient basis and the patient was found to have a large right upper lobe mass. Following that, the patient was sent to [facility] for a CAT scan of the chest that was done on 02/08/2022. The patient was found to have a heterogeneous enhancing mass and associated with lobar collapse involving the entirety of the right upper lobe measuring 7.8 x 6.7 cm in size and some postobstructive changes in the right upper lobe. There was also the bronchial involvement in the right mainstem bronchus. There were parenchymal opacities within the superior segment of the right lower lobe posteriorly measuring 4.8 x 2.2 cm in size, left lower lobe measuring 1.9 x 1.7 cm in size and 1.9 x 1.2 cm in size And a small right-sided pleural effusion as well as a small left-sided pleural effusion there was also evidence of a large bilateral supraclavicular lymph node measuring up to 1.1 cm in size. There was a large subcarinal lymph node measuring 1.5 cm in size. There was a right perihilar soft tissue attenuation difficult differentiate between adenopathy and a mass. Mildly large and father also seen in the para-aortic, AP window and left hilar areas. The patient does not use any pulmonary medications or inhal ers did not have any hemoptysis. He is a chronic smoker quit smoking approximately 4 months ago. His been fully vaccinated for COVID 19. 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 This patient is quite cachectic. He is having some limited shortness of breath even at rest. A repeat chest x- ray was done today and shows a right upper lobe opacity and a enlarging right- sided pleural effusion. Patient is status post Bronchoscopy, transbronchial biopsies, as well as brushing, bronchial lavage of the right upper lobe 02/16/2022 Patient is seen and evaluated sitting up in bed; continues to report dry cough; continues to have shortness of breath Vital signs are reviewed and reveal temperature 0.78, pulse 77, respiration 18 and blood pressure 1 6700 8902 saturation of 92% Pulmonary on board; patient underwent thoracentesis with removal of 900 mL of fluid was removed from right lung Patient is status post bronchoscopy with transbronchial biopsies and fluent fluid samples Labs are reviewed and reveal WBC of 17, hemoglobin of 12.6; sodium 132, potassium 2.9; potassium has been replaced with 20 mEq IV along with 40 mEq by mouth; continue to monitor electrolytes 02/17/2022 Patient is seen this morning sleeping, but easily arousable. Patient appears exhausted. Patient reports to not feeling well and not sleeping. Patient is status post thoracentesis with biopsy and pulmonary following closely. Oncology following. Awaiting pathology. Highly suspicious for carcinoma. Patient continues to be short of breath and is currently maintained on 10 L HF via NC. Patient is continued on IV steroids, IV antibiotics and breathing inhalational treatments and will continue. Potassium is 3.3 today and will replace and repeat am labs. Follow up chest xray ordered for am as well. 02/18/2022 Patient is seen in follow-up this morning continues to be extremely short of breath and dyspneic with minimal exertion. Patient is maintained on 10 L high flow. Pulmonary and oncology following, patient continues on IV steroids along with breathing inhalational treatments and IV ceftriaxone and will continue. Repeat potassium after replacement is 4.3 today. Magnesium is 2.1, WBC elevated at 13.5 although most likely a component of IV steroid reaction. Awaiting pathology from biopsy that was done by pulmonary. Bronchial washings currently pending as well. Patient is extremely weak and fatigued and not sleeping well at all. Patient also not eating much and speech therapy was consulted recommending possible modified barium swallow although respiratory status is currently unstable and will await and further evaluate each day. Encouraged oral intake. Patient reports to no appetite and does not want to eat. Patient denies chest pain or palpitations. Patient is afebrile. 02/19/2022 Patient is seen and evaluated in follow-up this morning with multiple medical co nsultations following. Patient underwent MRI of the brain for evaluation of metastasis and was found to have small foci of evolving acute/early subacute lacunar infarcts in the deep left parietal lobe and study was also suboptimal without enhancing mass is identified to suggest metastatic disease to the brain. Oncology is following and pathology currently pending which is cancerous, just Unaware of which type. awaiting finalized report. Neurology consulted and appreciate input and recommendations. Discussed CODE STATUS with the care of the patient today subjective: resuming the care of the pt today 02/21/2012 This is a pleasant 61 years old male who presents with right upper lobe lung cancer and a mass with suspected surrounding pneumonia and acute hypoxic respiratory failure. Also he underwent thoracocentesis for his right pleural effusion with 900 mL his been taken out last Thursday. He is not on home oxygen and currently he is on 6 L/m. He is been treated with ceftriaxone, Solu-Medrol 60 mg and normal saline 75 mL/h. Oncology team on the case and he underwent staging workup including a brain MRI with finding of incidental asymptomatic left like no parietal infarct, acute/subacute, neurologist on the case and he recommended to repeat MRI of the brain in 2-3 weeks to rule out metastasis. Further workup showed ejection fraction 60-65%, left internal carotid artery stenosis of about 50%. Pulmonary team on the case as well and neurology service. Patient also very short of breath especially with talking. However he denies chest pain, it looks cachectic. He was able to eat 100% of his neck this morning but only 25% of his request. He denies any pain. 02/21/2022 Patient is still short of breath, he has difficulty finishing talking because of his dyspnea, fully awake and oriented, his oxygen requirement went up to 8 L/m today. Also he still have low appetite is revealing less than half of his medial each time. Solu-Medrol switched to prednisone today. As per pulmonary team, patient and son considering a second opinion at [facility] Objective - Vital Signs Vital signs: Vital Signs Temp 97.6 F 02/21/22 11:35 Pulse 94 02/21/22 11:35 Resp 20 02/21/22 11:35 BP 162/88 02/21/22 11:35 Pulse Ox 88 L 02/21/22 11:35 Intake & Output 02/20/22 02/21/22 02/21/22 18:59 06:59 18:59 Intake Total 1620 600 Output Total 675 500 500 Balance 945 -500 100 Weight 50.2 kg Intake: Intake, IV Titration 900 600 Amount Sodium Chloride 0.9% 1, 900 600 000 ml @ 75 mls/hr IV . [id number] SUSANNAH Rx#:[id number] Oral 720 Output: Urine 675 500 500 Other: # Bowel Movements 2 - Exam -GENERAL: The patient is alert and oriented x3, not in any acute distress. cachectic, generally weak HEENT: Pupils are round and equally reacting to light. EOMI. No scleral icterus. No conjunctival pallor. Normocephalic, atraumatic. No pharyngeal erythema. No thyromegaly. CARDIOVASCULAR: S1 and S2 present. No murmurs, rubs, or gallops. -PULMONARY: Chest is clear to auscultation, no wheezing or crackles. Tachypnea with decreased breath sounds in the right upper abdomen. ABDOMEN: Soft, nontender, nondistended, normoactive bowel sounds. No palpable organomegaly. MUSCULOSKELETAL: No joint swelling or deformity. EXTREMITIES: No cyanosis, clubbing, or pedal edema. NEUROLOGICAL: Gross neurological examination did not reveal any focal deficits. SKIN: No rashes. no petechiae. - Labs CBC & Chem 7: 02/20/22 07:39 02/20/22 07:39 Labs: Abnormal Lab Results - Last 24 Hours (Table) 02/20/22 02/21/22 02/21/22 Range/Units 16:50 06:10 11:52 POC Glucose (mg/dL) 167 H 155 H 124 H (75-99) mg/dL 02/21/22 Range/Units 16:30 POC Glucose (mg/dL) 172 H (75-99) mg/dL Microbiology - Last 24 Hours (Table) 02/14/22 14:30 Blood Culture - Final Blood No Growth after 144 hours 02/14/22 14:10 Blood Culture - Final Blood No Growth after 144 hours Assessment and Plan Assessment: - Right upper lobe lung mass with associated pneumonia - small foci of evolving acute/early subacute lacunar infarcts in the deep left parietal lobe as noted on MRI of the brain -Right-sided pleural effusion; status post thoracentesis with approx 900cc removed -COPD; with acute exacerbation -Hyperlipidemia -Hypertension -History of CVA/TIA approx 3 years ago Plan: This is a pleasant 61 years old male who presents with lung cancer, pneumonia and hypoxia was COPD exacerbation. Continue with ceftriaxone, and oxygen therapy. Solu-Medrol changed to prednisone Several consultants on the case including pulmonary, hematology/oncology and neurology Patient recommended to have a PET scan as an outpatient and a repeat MRI of the brain in 2-3 weeks. Continue with oxygen therapy. discussed the case with the neurologist who recommend to start pt on asa 325 mg Labs and medication were reviewed.. Continue same treatment. Continue with symptomatic treatment. Resume home medication. Monitor lytes and vitals. DVT and GI prophylaxis. Further recommendations as per clinical course of the patient DVT prophylaxis: Subcutaneous heparin GI Prophylaxis: Pepcid PT/OT: Pending Prognosis is guarded
[2022-02-21] MEDS: ASPIRIN 325 MG TAB PO SCH (17:08)
--- NOTE | 2022-02-21 18:44 | CT ---
EXAMINATION TYPE: CT ChestAbdPelvis w con CT DLP: 543.2 mGycm, Automated exposure control for dose reduction was used. DATE OF EXAM: 02/21/2022 4:25 PM COMPARISON: None CLINICAL INDICATION:Male, 61 years old with history of Staging, Staging. History of lung cancer. Technique: Multiple axial images of the chest, abdomen, and pelvis were obtained following the intrav enous administration of 100 mL Isovue-300. Two-dimensional coronal and sagittal reconstructions were obtained. Findings: CHEST: LUNGS/ PLEURA: There are moderate small left bilateral pleural effusions. There are scattered groundg lass opacities consolidation changes throughout the lungs. There is narrowing of the right upper lobe main bronchus best appreciated on image 17 of axial imaging. This is felt to result in some componen t of atelectasis of the right upper lobe. No evidence of pneumothorax. AIRWAY: There is narrowing of the right upper lobe bronchus with at least 70% with ill-defined soft t issue around the bronchus. HEART: Size within normal limits. . MEDIASTINUM: Right epicardial fat prominent lymph nodes measuring up to 6 mm. VASCULATURE: No aortic aneurysm. No evidence of pulmonary embolism. MUSCULOSKELETAL: No acute osseous abnormalities SOFT TISSUES/LYMPH NODES: Unremarkable. LOWER NECK: No significant findings. ABDOMEN: ABDOMEN LIVER: There are 2 hypoattenuating indeterminate lesions present in segment 2 measuring 19 x 12 mm an d the second in segment IVb measuring 9 mm. GALLBLADDER AND BILE DUCTS: Unremarkable. PANCREAS: Unremarkable. SPLEEN: Unremarkable. ADRENAL GLANDS: Right adrenal gland nodules the largest measuring 20 x 13 mm and the more smaller doug suring 16 mm.. Left adrenal gland is unremarkable. KIDNEYS AND URETERS: Left renal cyst with thin septation measuring 30 mm. Additional too small to glendy racterize bilateral probable renal cysts. No evidence of hydronephrosis or renal calculus. The ureter s are unremarkable. PELVIS BLADDER: Unremarkable REPRODUCTIVE: Unremarkable. ABDOMEN & PELVIS STOMACH AND BOWEL: No evidence of bowel obstruction. PERITONEUM: No evidence of pneumoperitoneum or free fluid. VASCULATURE: No evidence of aortic aneurysm. MUSCULOSKELETAL: Endplate irregularity of L4 is likely felt to be due to Schmorl's node. T9 Scattered lytic areas suspicious for metastatic disease examples include L4 vertebral body superior e ndplate 16 mm on with T9 vertebral body superior endplate, T2 and T3 vertebral bodies as well. LYMPH NODES: No gross evidence for lymphadenopathy. SOFT TISSUE/ABDOMINAL WALL: Unremarkable IMPRESSION: 1. Right upper lobe bronchus narrowing from soft tissue mass of at least 70% resulting in probably ri ght upper lobe atelectasis. Consider bronchoscopy with tissue sampling. 2. Findings concerning for metastatic disease include Indeterminate hepatic lesions in segment 2 and segment IVb. Lucent lesions scattered throughout the vertebral bodies concerning for metastatic disea se. Correlation with more remote priors at outside institution may be of benefit. There are 2 nodules in the right adrenal gland measuring up to 21 mm and lastly right epicardial fat prominent lymph nod es. All these findings are concerning for metastatic disease until proven otherwise 3. Scattered groundglass and consolidative changes throughout the most likely secondary to an infecti ous/inflammatory process. 4. Moderate small left pleural effusions.
[2022-02-21 20:25] LABS: Glucose,Whole Blood 142 mg/dL (75-99)
[2022-02-21] MEDS: ATORVASTATIN 40 MG TAB PO SCH (21:12)
[2022-02-21] MEDS: MORPHINE SULFATE 2 MG/ML SYRINGE IVP PRN (21:12)
--- NOTE | 2022-02-21 22:16 | P.PN ---
Subjective Progress Note Date: 02/21/22 Patient was seen for a follow-up. Patient's son was also present today. Patient is sitting in the bed, still with slight difficulty in breathing. Appears slightly short of breath, particularly when conversing. Denies headache. No new neurological symptoms. No numbness tingling, focal weakness. Objective - Vital Signs Vital signs: Vital Signs Temp 96.5 F L 02/21/22 16:46 Pulse 93 02/21/22 16:46 Resp 20 02/21/22 16:46 BP 164/89 02/21/22 16:46 Pulse Ox 88 L 02/21/22 16:46 Intake & Output 02/21/22 02/21/22 02/22/22 06:59 18:59 06:59 Intake Total 840 Output Total 500 500 350 Balance -500 340 -350 Intake: Intake, IV Titration 600 Amount Sodium Chloride 0.9% 1, 600 000 ml @ 75 mls/hr IV . [id number] SUSANNAH Rx#:[id number] Oral 240 Output: Urine 500 500 350 Other: # Bowel Movements 2 - Exam Patient's examination is nonfocal. Patient continues to be slightly short of breath. Pupils are equal. Face is symmetric. Muscle strength is normal. Speech and language functions normal. - Labs CBC & Chem 7: 02/20/22 07:39 02/20/22 07:39 Labs: Abnormal Lab Results - Last 24 Hours (Table) 02/21/22 02/21/22 02/21/22 Range/Units 06:10 11:52 16:30 POC Glucose (mg/dL) 155 H 124 H 172 H (75-99) mg/dL 02/21/22 Range/Units 20:24 POC Glucose (mg/dL) 142 H (75-99) mg/dL Assessment and Plan Assessment: * Abnormal MRI of the brain, showing evidence of possible very small subacute left sided subcortical lacunar infarct. Patient clinically asymptomatic. This finding was incidentally noted on surveillance teressa MRI for metastatic workup. * Moderate left ICA stenosis about 50%. * Hypertension * Newly diagnosed lung mass with pleural effusion * Weight loss, likely due to above. * Tobacco use Plan: * Resume aspirin 325 mg daily. * Carotid Doppler revealed atheromatous plaquing noted on the left approaching moderate narrowing nearly 50%. Antegrade flow in both vertebral arteries. * 2-D echo revealed normal left-ventricular size. Borderline concentric LVH. EF is normal 60-65%. Mild aortic valve sclerosis. Moderate pulmonary hypertension. Small generalized pericardial effusion. No obvious embolic source identified on the 2-D echo. * Fasting a.m. lipid panel with cholesterol 155, LDL 78, HDL 57 and triglycerides 98. Continue Lipitor 40 mg. * Hemoglobin A1c 6.1. * May consider repeating MRI of the brain with and without contrast in 2-3 months to rule out any metastatic disease. * Telemetry monitoring showing sinus rhythm. * Recommend complete tobacco cessation. * Neurologically clear. Neurology will sign off. Please reconsult if any concerns.
[2022-02-22] MEDS: SODIUM CHLORIDE 0.9% 1,000 ML IV SCH (04:35)
[2022-02-22 05:29] VITALS: RESP 24; TEMP 96.8
[2022-02-22] MEDS: INSULIN ASPART (NovoLOG) 100 UNIT/ML VIAL SQ SCH ×2 (06:26→12:14)
[2022-02-22 06:34] LABS: Glucose,Whole Blood 92 mg/dL (75-99)
[2022-02-22 07:24] LABS: African American GFR (CKD) >90 (>60 ml/min/1.73 sqM); Anion Gap 2 mmol/L; Blood Urea Nitrogen 26 mg/dL (9-20); Calcium 8.3 mg/dL (8.4-10.2); Carbon Dioxide 38 mmol/L (22-30); Chloride 101 mmol/L (98-107); Glucose 104 mg/dL (74-99); Non-African American GFR(CKD) >90 (>60 ml/min/1.73 sqM); Potassium 4.2 mmol/L (3.5-5.1); Sodium 141 mmol/L (137-145)
[2022-02-22 08:12] LABS: Basophils % (A) 0 %; Eosinophils % (A) 0 %; HCT 41.3 % (39.0-53.0); HGB 12.5 gm/dL (13.0-17.5); Hypochromasia Marked; Lymphocytes # (A) 0.6 k/uL (1.0-4.8); Lymphocytes % (A) 3 %; MCH 30.4 pg (25.0-35.0); MCHC 30.2 g/dL (31.0-37.0); MCV 100.7 fL (80.0-100.0); Macrocytosis Slight; Mean Platelet Volume 8.2; Monocytes % (A) 5 %; Neutrophils # (A) 18.6 k/uL (1.3-7.7); Neutrophils % (A) 92 %; Platelet Count 191 k/uL (150-450); RDW 14.9 % (11.5-15.5); WBC 20.3 k/uL (3.8-10.6)
[2022-02-22] MEDS: IPRATROPIUM-ALBUTEROL 3 ML NEB INHALATION SCH ×2 (08:39→12:06)
[2022-02-22] MEDS: amLODIPine 10 MG TAB PO SCH (08:52)
[2022-02-22] MEDS: predniSONE 20 MG TAB PO SCH (08:52)
[2022-02-22] MEDS: ASPIRIN 325 MG TAB PO SCH (08:52)
[2022-02-22] MEDS: BENZONATATE 100 MG CAP PO SCH (08:53)
[2022-02-22] MEDS: FAMOTIDINE 20 MG/2 ML VIAL IV SCH (08:53)
[2022-02-22] MEDS: HEPARIN SODIUM,PORCINE/PF 5,000 UNIT/0.5 ML SYRINGE SQ SCH (08:53)
[2022-02-22] MEDS: MONTELUKAST 10 MG TAB PO SCH (08:53)
[2022-02-22 11:39] LABS: Glucose,Whole Blood 115 mg/dL (75-99)
[2022-02-22 12:21] VITALS: BP 136/76; PULSE 78
--- NOTE | 2022-02-22 12:38 | P.PN ---
Subjective Progress Note Date: 02/22/22 Principal diagnosis: Acute hypoxic respiratory failure, secondary to acute exacerbation of COPD and strong suspicion of bronchogenic carcinoma involving her right upper lobe with m ediastinal adenopathy and pleural effusion 02/15/2022, the patient is being seen for a follow-up. Still struggling with his breathing and shortness of breath and he is having frequent coughing. No h emoptysis. He is on DuoNeb nebulized treatments around the clock. Bronchoscopy was done yesterday and results are still pending for now. The patient has no other specific complaint is otherwise. I noted development of a right-sided pleural effusion. We'll obtain ultrasound markings for possible thoracentesis in the future. He is cachectic. He is weak. Appetite is poor. Outpatient medications have been all resumed. 02/16/2022, patient is doing poorly. He has short of breath. Based on that, I made a decision to drain the pleural fluid on the right side. This was done at the bedside and there was no evidence of any complications following the procedure. The patient did have some increased cough and following the procedure which is essentially subsided. There was no evidence of pneumothorax post procedure and the patient had a total of 900 mL of fluid removed from the right lung and the patient improved aeration of the right lower lung area. He continues to have a large masslike density in the right upper lobe. Bronchoscopy and plasma collapse of the right upper lobe was done earlier. As such, we have transbronchial biopsies and pleural fluid samples looking for any underlying malignancy. He is extremely emaciated and cachectic. He was seen also by oncology. Patient was reevaluated today on 02/17/22, patient continues to cough and wheeze continues to have shortness of breath with any activity. He is on 6 L nasal cannula, and he seems to be in mild respiratory distress. Cytology is pending from his pleural effusion and pathology is pending from his bronchoscopy and transbronchial biopsy done by Dr. Odonnell few days ago. Patient is on bronchodilators, he is on oxygen, and overall clinical picture does not look very promising. The pleural effusion obviously is exudative in nature, and I believe it is malignant unless for otherwise. Patient is on bronchodilators, DuoNeb, he is also on antibiotics empirically, and I will add methylprednisolone for this patient. Reevaluated today on 02/18/2022, patient remains about the same, slight improvement in his coughing and wheezing after adding Solu-Medrol yesterday. Remains on 10 L high flow oxygen. O2 sats is 95-96%. He is hemodynamically stable. Does not seem to be in distress today. Again I believe the steroids significantly improved his wheezing. And he definitely more comfortable. Patho logy including cytology from the pleural effusion and from his biopsy/bronchoscopy are pending. CBC is relatively unremarkable electrolytes are normal renal profile is normal The patient is seen today 02/20/2022 in follow-up on the selective care unit. He is currently sitting up the bedside. Awake and alert in no acute distress. He is still dyspneic with minimal conversation. Dyspneic with exertion. He has some bilateral end expiratory wheeze. Diminished breath sounds. He is still quite frail and cachectic. Echocardiogram revealed preserved left ventricular systolic function with ejection fraction 66 5%. Carotid Dopplers revealed 50% stenosis of left carotid. He remains on normal saline at 75 ML's per hour. He is continued on DuoNeb inhalations, IV Solu-Medrol, Singulair. Antibiotics in the form of ceftriaxone. Heparin for DVT prophylaxis. On 02/21/2022 patient is seen in follow-up on selective care unit. He is awake and alert, he is quite short of breath with any exertion and conversation. Unable to speak in full sentences. Takes a while to recover after walking to the bathroom. He remains on 8 L of oxygen satting 88-91%. Lung sounds are diminished, with diffuse rhonchi. Patient has been afebrile. His last chest x- ray on 02/16/2022 showed persistent but improved small right basilar pleural fluid collection, chronic parenchymal and emphysematous changes and tiny left pleural effusion with decreased left lung markings. Remains afebrile. Patient's right upper lobe transbronchial biopsy results are positive for non- small cell carcinoma. Patient also had a right-sided thoracentesis on 02/16/2022 with removal of 900 mL of turbid colored fluid, however I don't see results of the pleural fluid cytology. MRI of the brain was suboptimal showing evidence of possible very small subacute left-sided subcortical lacunar infarct, without evident metastatic disease. Patient is quite short of breath, patient is still being worked up for staging of his newly diagnosed non-small cell lung carcinoma. His overall prognosis is quite poor, and Dr. Blanc spoke to the patient about hospice. However patient's son is considering obtaining a second opinion at a tertiary care facility possibly [facility]. The patient confirmed that he wants no life support, no aggressive life-saving measures, however he wants to speak to his son, and he thinks he may consider treatment for his lung cancer. Reevaluated today on 02/22/2022, patient is basically about the same, he looks extremely frail, chronically ill, in mild to moderate respiratory distress, on 15 L high flow nasal cannula, and his O2 saturation is between 85-89%. I recommended that the patient goes on airvo [place] count today is 20.3 hemoglobin is 12.5. Normal renal profile is normal repeat CT of the chest showed narrowing of the right upper lobe bronchus. And the right upper lobe atelectasis. There was also evidence of intermediate hepatic lesions in the liver. And multiple skeletal lesions consistent with metastatic disease. And there is also a moderate small left-sided pleural effusion now. Again as far as I'm concerned, the patient is not a candidate for any intervention including any chemotherapy at this point. He is being followed by oncology, and I'm strongly recommending hospice to this patient. Objective - Vital Signs Vital signs: Vital Signs Temp 96.8 F L 02/22/22 04:00 Pulse 78 02/22/22 12:00 Resp 24 02/22/22 12:00 BP 136/76 02/22/22 12:00 Pulse Ox 85 L 02/22/22 12:00 Intake & Output 02/21/22 02/22/22 02/22/22 18:59 06:59 18:59 Intake Total 840 Output Total 500 850 Balance 340 -850 Intake: Intake, IV Titration 600 Amount Sodium Chloride 0.9% 1, 600 000 ml @ 75 mls/hr IV . [id number] SUSANNAH Rx#:[id number] Oral 240 Output: Urine 500 850 Other: Voiding Method Urinal # Bowel Movements 2 - Exam Physical Exam: Revealed a 61-year-old white male extremely frail ill looking in mild respiratory distress on 15 L high flow nasal cannula Head: Atraumatic, normocephalic HEENT:[Neck is supple.] [No neck masses.] [No thyromegaly.] [No JVD.] Chest: Rhonchi and Wheezes Bilaterally Cardiac Exam: [Normal S1 and S2, no S3 gallop, no murmur.] Abdomen: [Soft, nontender, no megaly, no rebound, no guarding, normal bowel sounds.] Extremities: [No clubbing, no edema, no cyanosis.] Neurological Exam: [No focal neurologic deficit.] Skin: No rashes. Musculoskeletal: No deformities noted limitation range of motion Psychiatric: Normal mood affect and normal mental status examination. - Labs CBC & Chem 7: 02/22/22 07:03 02/22/22 07:03 Labs: Abnormal Lab Results - Last 24 Hours (Table) 02/21/22 02/21/22 02/22/22 Range/Units 16:30 20:24 07:03 WBC 20.3 H (3.8-10.6) k/uL RBC 4.10 L (4.30-5.90) m/uL Hgb 12.5 L (13.0-17.5) gm/dL MCV 100.7 H (80.0-100.0) fL MCHC 30.2 L (31.0-37.0) g/dL Neutrophils # 18.6 H (1.3-7.7) k/uL Lymphocytes # 0.6 L (1.0-4.8) k/uL Carbon Dioxide (22-30) mmol/L BUN (9-20) mg/dL Creatinine (0.66-1.25) mg/dL Glucose (74-99) mg/dL POC Glucose (mg/dL) 172 H 142 H (75-99) mg/dL Calcium (8.4-10.2) mg/dL 02/22/22 02/22/22 Range/Units 07:03 11:38 WBC (3.8-10.6) k/uL RBC (4.30-5.90) m/uL Hgb (13.0-17.5) gm/dL MCV (80.0-100.0) fL MCHC (31.0-37.0) g/dL Neutrophils # (1.3-7.7) k/uL Lymphocytes # (1.0-4.8) k/uL Carbon Dioxide 38 H (22-30) mmol/L BUN 26 H (9-20) mg/dL Creatinine 0.38 L (0.66-1.25) mg/dL Glucose 104 H (74-99) mg/dL POC Glucose (mg/dL) 115 H (75-99) mg/dL Calcium 8.3 L (8.4-10.2) mg/dL Assessment and Plan Assessment: Acute hypoxic respiratory failure secondary to acute exacerbation of COPD, and stage IV metastatic adenocarcinoma, biopsy-proven. Large right upper lobe mass with mediastinal adenopathy Right-sided pleural effusion status post thoracentesis again considered malignant unless for otherwise. No cytology was sent to the lab when the thoracentesis was done. Severe cachexia and weight loss secondary to underlying malignancy Status post bronchoscopy and thoracentesis Recommendation: Continue bronchodilators. Continue Solu-Medrol Strongly recommend hospice on this patient. Continue oxygen and titrate accordingly. Continue GI and DVT prophylaxis We'll continue to follow. Prognosis is extremely poor. Again strongly recommend hospice Time with Patient: Less than 30
[2022-02-22] MEDS ORDERED: FUROSEMIDE 10 MG/ML 4 ML VIAL IV STA (13:52)
--- NOTE | 2022-02-22 18:37 | P.PN ---
Subjective 61-year-old male who presents emergency department from Dr. Yeboah's office. Patient was recently diagnosed with a lung mass on the right side with possible pleural effusion from a CAT scan. Dr. Yeboah on the patient needed to be brought into the hospital possibly have this pleural effusion drained and have oncology see him and order some biopsies extremity if this is indeed cancer and what type of cancer. Patient complains of some right-sided chest pain and also some shortness of breath per patient also states she's very anxious He just f ound out this news this morning. Patient denies any fever chills or cough per patient denies any abdominal pain patient denies nausea vomiting diarrhea. Chest x-ray was done on outpatient basis and the patient was found to have a large right upper lobe mass. Following that, the patient was sent to [facility] for a CAT scan of the chest that was done on 02/08/2022. The patient was found to have a heterogeneous enhancing mass and associated with lobar collapse involving the entirety of the right upper lobe measuring 7.8 x 6.7 cm in size and some postobstructive changes in the right upper lobe. There was also the bronchial involvement in the right mainstem bronchus. There were parenchymal opacities within the superior segment of the right lower lobe posteriorly measuring 4.8 x 2.2 cm in size, left lower lobe measuring 1.9 x 1.7 cm in size and 1.9 x 1.2 cm in size And a small right-sided pleural effusion as well as a small left-sided pleural effusion there was also evidence of a large bilateral supraclavicular lymph node measuring up to 1.1 cm in size. There was a large subcarinal lymph node measuring 1.5 cm in size. There was a right perihilar soft tissue attenuation difficult differentiate between adenopathy and a mass. Mildly large and father also seen in the para-aortic, AP window and left hilar areas. The patient does not use any pulmonary medications or inhal ers did not have any hemoptysis. He is a chronic smoker quit smoking approximately 4 months ago. His been fully vaccinated for COVID 19. 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 This patient is quite cachectic. He is having some limited shortness of breath even at rest. A repeat chest x- ray was done today and shows a right upper lobe opacity and a enlarging right- sided pleural effusion. Patient is status post Bronchoscopy, transbronchial biopsies, as well as brushing, bronchial lavage of the right upper lobe 02/16/2022 Patient is seen and evaluated sitting up in bed; continues to report dry cough; continues to have shortness of breath Vital signs are reviewed and reveal temperature 0.78, pulse 77, respiration 18 and blood pressure 1 6700 [id number] saturation of 92% Pulmonary on board; patient underwent thoracentesis with removal of 900 mL of fluid was removed from right lung Patient is status post bronchoscopy with transbronchial biopsies and fluent fluid samples Labs are reviewed and reveal WBC of 17, hemoglobin of 12.6; sodium 132, potassium 2.9; potassium has been replaced with 20 mEq IV along with 40 mEq by mouth; continue to monitor electrolytes 02/17/2022 Patient is seen this morning sleeping, but easily arousable. Patient appears exhausted. Patient reports to not feeling well and not sleeping. Patient is status post thoracentesis with biopsy and pulmonary following closely. Oncology following. Awaiting pathology. Highly suspicious for carcinoma. Patient continues to be short of breath and is currently maintained on 10 L HF via NC. Patient is continued on IV steroids, IV antibiotics and breathing inhalational treatments and will continue. Potassium is 3.3 today and will replace and repeat am labs. Follow up chest xray ordered for am as well. 02/18/2022 Patient is seen in follow-up this morning continues to be extremely short of breath and dyspneic with minimal exertion. Patient is maintained on 10 L high flow. Pulmonary and oncology following, patient continues on IV steroids along with breathing inhalational treatments and IV ceftriaxone and will continue. Repeat potassium after replacement is 4.3 today. Magnesium is 2.1, WBC elevated at 13.5 although most likely a component of IV steroid reaction. Awaiting pathology from biopsy that was done by pulmonary. Bronchial washings currently pending as well. Patient is extremely weak and fatigued and not sleeping well at all. Patient also not eating much and speech therapy was consulted recommending possible modified barium swallow although respiratory status is currently unstable and will await and further evaluate each day. Encouraged oral intake. Patient reports to no appetite and does not want to eat. Patient denies chest pain or palpitations. Patient is afebrile. 02/19/2022 Patient is seen and evaluated in follow-up this morning with multiple medical co nsultations following. Patient underwent MRI of the brain for evaluation of metastasis and was found to have small foci of evolving acute/early subacute lacunar infarcts in the deep left parietal lobe and study was also suboptimal without enhancing mass is identified to suggest metastatic disease to the brain. Oncology is following and pathology currently pending which is cancerous, just Unaware of which type. awaiting finalized report. Neurology consulted and appreciate input and recommendations. Discussed CODE STATUS with the care of the patient today subjective: resuming the care of the pt today 02/21/2012 This is a pleasant 61 years old male who presents with right upper lobe lung cancer and a mass with suspected surrounding pneumonia and acute hypoxic respiratory failure. Also he underwent thoracocentesis for his right pleural effusion with 900 mL his been taken out last Thursday. He is not on home oxygen and currently he is on 6 L/m. He is been treated with ceftriaxone, Solu-Medrol 60 mg and normal saline 75 mL/h. Oncology team on the case and he underwent staging workup including a brain MRI with finding of incidental asymptomatic left like no parietal infarct, acute/subacute, neurologist on the case and he recommended to repeat MRI of the brain in 2-3 weeks to rule out metastasis. Further workup showed ejection fraction 60-65%, left internal carotid artery stenosis of about 50%. Pulmonary team on the case as well and neurology service. Patient also very short of breath especially with talking. However he denies chest pain, it looks cachectic. He was able to eat 100% of his neck this morning but only 25% of his request. He denies any pain. 02/21/2022 Patient is still short of breath, he has difficulty finishing talking because of his dyspnea, fully awake and oriented, his oxygen requirement went up to 8 L/m today. Also he still have low appetite is revealing less than half of his medial each time. Solu-Medrol switched to prednisone today. As per pulmonary team, patient and son considering a second opinion at [facility] 02/22/2022 Patient is not improving and actually his respiratory stress test getting worse and his oxygen requirement went up to 50 L at 90% percent on high flow nasal cannula. Also he slipped on the floor today and he has to be put back. CT of the chest showing extensive locally invasive pulmonary cancer. After rounding Pulmonary team recommended hospice care. Prognosis is extremely poor we will discussed the plan of care with the patient tomorrow Objective - Vital Signs Vital signs: Vital Signs Temp 96.8 F L 02/22/22 04:00 Pulse 78 02/22/22 12:00 Resp 24 02/22/22 12:00 BP 136/76 02/22/22 12:00 Pulse Ox 85 L 02/22/22 12:00 Intake & Output 02/21/22 02/22/22 02/22/22 18:59 06:59 18:59 Intake Total 840 Output Total 500 850 Balance 340 -850 Intake: Intake, IV Titration 600 Amount Sodium Chloride 0.9% 1, 600 000 ml @ 75 mls/hr IV . [id number] SUSANNAH Rx#:[id number] Oral 240 Output: Urine 500 850 Other: Voiding Method Urinal # Bowel Movements 2 - Exam -GENERAL: The patient is alert and oriented x3, not in any acute distress. cachectic, generally weak HEENT: Pupils are round and equally reacting to light. EOMI. No scleral icterus. No conjunctival pallor. Normocephalic, atraumatic. No pharyngeal erythema. No thyromegaly. CARDIOVASCULAR: S1 and S2 present. No murmurs, rubs, or gallops. -PULMONARY: Chest is clear to auscultation, no wheezing or crackles. Tachypnea with decreased breath sounds in the right upper abdomen. ABDOMEN: Soft, nontender, nondistended, normoactive bowel sounds. No palpable organomegaly. MUSCULOSKELETAL: No joint swelling or deformity. EXTREMITIES: No cyanosis, clubbing, or pedal edema. NEUROLOGICAL: Gross neurological examination did not reveal any focal deficits. SKIN: No rashes. no petechiae. - Labs CBC & Chem 7: 02/22/22 07:03 02/22/22 07:03 Labs: Abnormal Lab Results - Last 24 Hours (Table) 02/21/22 02/21/22 02/22/22 Range/Units 16:30 20:24 07:03 WBC 20.3 H (3.8-10.6) k/uL RBC 4.10 L (4.30-5.90) m/uL Hgb 12.5 L (13.0-17.5) gm/dL MCV 100.7 H (80.0-100.0) fL MCHC 30.2 L (31.0-37.0) g/dL Neutrophils # 18.6 H (1.3-7.7) k/uL Lymphocytes # 0.6 L (1.0-4.8) k/uL Carbon Dioxide (22-30) mmol/L BUN (9-20) mg/dL Creatinine (0.66-1.25) mg/dL Glucose (74-99) mg/dL POC Glucose (mg/dL) 172 H 142 H (75-99) mg/dL Calcium (8.4-10.2) mg/dL 02/22/22 02/22/22 Range/Units 07:03 11:38 WBC (3.8-10.6) k/uL RBC (4.30-5.90) m/uL Hgb (13.0-17.5) gm/dL MCV (80.0-100.0) fL MCHC (31.0-37.0) g/dL Neutrophils # (1.3-7.7) k/uL Lymphocytes # (1.0-4.8) k/uL Carbon Dioxide 38 H (22-30) mmol/L BUN 26 H (9-20) mg/dL Creatinine 0.38 L (0.66-1.25) mg/dL Glucose 104 H (74-99) mg/dL POC Glucose (mg/dL) 115 H (75-99) mg/dL Calcium 8.3 L (8.4-10.2) mg/dL Assessment and Plan Assessment: - Right upper lobe lung mass with associated pneumonia - small foci of evolving acute/early subacute lacunar infarcts in the deep left parietal lobe as noted on MRI of the brain -Right-sided pleural effusion; status post thoracentesis with approx 900cc removed -COPD; with acute exacerbation -Hyperlipidemia -Hypertension -History of CVA/TIA approx 3 years ago Plan: This is a pleasant 61 years old male who presents with lung cancer, pneumonia and hypoxia was COPD exacerbation. Continue with ceftriaxone, and oxygen therapy. Continue with prednisone Several consultants on the case including pulmonary, hematology/oncology and neurology Patient recommended to have a PET scan as an outpatient and a repeat MRI of the brain in 2-3 weeks. Continue with oxygen therapy. discussed the case with the neurologist who recommend to start pt on asa 325 mg Prognosis is very poor and hospice care is recommended Labs and medication were reviewed.. Continue same treatment. Continue with symptomatic treatment. Resume home medication. Monitor lytes and vitals. DVT and GI prophylaxis. Further recommendations as per clinical course of the patient DVT prophylaxis: Subcutaneous heparin GI Prophylaxis: Pepcid PT/OT: Pending Prognosis is guarded
== END 2022-02-22 19:06 | disposition expired | DRG 166 ==
LOC: EC 10:57 → 3SCARD 14:06
PROVIDERS: ADMIT Hospitalist; ATTEND Hospitalist
PROC: 0B9C8ZX Drainage of Right Upper Lung Lobe, Via Natural or Artificial Opening Endoscopic, Diagnostic (ICD-10-PCS; principal; 2022-02-14 08:40)
PROC: 0BBC8ZX Excision of Right Upper Lung Lobe, Via Natural or Artificial Opening Endoscopic, Diagnostic (ICD-10-PCS; principal; 2022-02-14 08:40)
PROC: 0BDC8ZX Extraction of Right Upper Lung Lobe, Via Natural or Artificial Opening Endoscopic, Diagnostic (ICD-10-PCS; principal; 2022-02-14 08:40)
PROC: 0W993ZX Drainage of Right Pleural Cavity, Percutaneous Approach, Diagnostic (ICD-10-PCS; 2022-02-16)
PROC: 5A0945A Assistance with Respiratory Ventilation, 24-96 Consecutive Hours, High Flow/Velocity Cannula (ICD-10-PCS; 2022-02-17)
DX: C34.11 Malignant neoplasm of upper lobe, right bronchus or lung (principal); I63.81 Other cerebral infarction due to occlusion or stenosis of small artery; J18.9 Pneumonia, unspecified organism; J96.01 Acute respiratory failure with hypoxia; J44.0 Chronic obstructive pulmonary disease with (acute) lower respiratory infection; J44.1 Chronic obstructive pulmonary disease with (acute) exacerbation; J91.0 Malignant pleural effusion; J98.11 Atelectasis; R64 Cachexia; Z68.1 Body mass index [BMI] 19.9 or less, adult; R04.2 Hemoptysis; E44.0 Moderate protein-calorie malnutrition; I10 Essential (primary) hypertension; F41.9 Anxiety disorder, unspecified; E78.5 Hyperlipidemia, unspecified; Z66 Do not resuscitate; Z87.891 Personal history of nicotine dependence; Z20.822 Contact with and (suspected) exposure to COVID-19; I65.22 Occlusion and stenosis of left carotid artery; K76.9 Liver disease, unspecified; Z91.81 History of falling; Z79.82 Long term (current) use of aspirin; Z79.899 Other long term (current) drug therapy; Z86.73 Personal history of transient ischemic attack (TIA), and cerebral infarction without residual deficits; Z98.890 Other specified postprocedural states; Z77.090 Contact with and (suspected) exposure to asbestos
CPT/HCPCS: 31623; 31624; 31625; 36415; 70553; 71045; 71046; 71260; 74177; 76604; 80048; 80053; 80061; 82945; 83036; 83615; 83735; 83880; 84132; 84145; 84157; 84484; 85025; 85610; 85730; 87040; 87070; 87102; 87116; 87205; 87206; 87252; 87496; 87498; 87502; 87529; 87634; 87635; 87798; 88104; 88108; 88305; 88341; 88342; 89050; 93005; 93306; 93880; 94640; 94760; 96361; 96374; 96375; 99285